=== PATIENT | female | born 1935 | race Caucasian/White ===

== ENCOUNTER → 2016-06-17 | Outpatient (CLI) | payer OTHER ==
[~2016-06-17] MED LIST: ACET-1256 PO; ACET650T82 PO; CALCTAB7 PO; CLB/200 PO; DILT180C96 PO; HYOS0.1271 PO; MISC4CAP PO; MULTTAB PO; POLYSOL4 OPB; ULT/50 PO; ZOLP10TA PO
--- NOTE | 2016-06-17 14:06 | DIAGNOSTIC IMAGING REPORT ---
CT HEAD WITHOUT CONTRAST (CT) CLINICAL HISTORY: Subdural hematoma COMPARISON STUDY: Head CT dated 03/24/2016, MRI the brain dated 06/02/2016 TECHNIQUE: Axial CT of the brain is performed from the vertex to the skull base. IV contrast was not administered for this examination. CT DOSE: 614.27 mGy.cm FINDINGS: There is a trace left convexity subdural hematoma, unchanged in size. There is no CT evidence of acute cortical infarction. There is no evidence of midline shift. There is no acute hemorrhage. No calvarial fractures are visualized. There are minimal white matter hypodensities likely on a small vessel basis. There is no evidence of pathologic ventricular dilatation. There is no evidence of acute sinusitis. There is minor mucosal thickening within the right maxillary sinus IMPRESSION: Trace left convexity subdural hematoma unchanged in size. No acute intracranial findings. Electronically signed by: Evens Lloyd M.D. 06/17/2016 2:04 PM Dictated Date/Time: 06/17/2016 2:01 PM
== END | disposition home or self-care (01) ==
LOC: C.CTS 13:47
PROVIDERS: ATTEND Psychiatry & Neurology Neurology
DX: I62.00 Nontraumatic subdural hemorrhage, unspecified (principal)

== ENCOUNTER → 2016-08-31 | Outpatient (CLI) | payer OTHER ==
[~2016-08-31] MED LIST changes: +GADAVIST IV PRN
--- NOTE | 2016-08-31 16:59 | DIAGNOSTIC IMAGING REPORT ---
MRI OF THE BRAIN WITHOUT AND WITH IV CONTRAST CLINICAL HISTORY: Subdural hematoma. Follow-up examination. COMPARISON STUDY: Head CT dated 06/17/2016, MRI the brain dated 06/02/2016 TECHNIQUE: MRI of the brain was performed from the vertex to the skull base utilizing various T1 and T2 weighted sequences. Following the IV administration of 7 mL of Gadavist contrast, additional enhanced images were obtained. FINDINGS: Sagittal T1, axial diffusion, proton density and T2 weighted axial, coronal FLAIR, and pre and post axial T1-weighted images were acquired. These were supplemented with post gadolinium coronal T1 weighted images. No intra or extra-axial mass lesions are visualized. There are tiny foci of restricted water diffusion within the right cerebellar hemisphere, consistent with areas of acute/subacute infarction. There is no evidence of ventricular dilatation. Proton density T2-weighted and FLAIR images reveal scattered foci of increased T2 signal within the white matter, likely on a small vessel basis. There are no abnormal flow voids. There is bilateral dural enhancement, likely secondary to the previously identified subdural hemorrhage. There are trace bilateral subdural hematomas similar to the prior study. There are inflammatory changes present within the right mastoid area IMPRESSION: 1. Tiny foci of restricted water diffusion within the right cerebellar hemisphere consistent with acute/subacute infarcts 2. Trace bilateral subdural hematomas left greater than right, unchanged from the preceding study. 3. Mild dural enhancement, likely the sequela of prior subdural hemorrhages 4. Persistent inflammatory changes within the right mastoid. Electronically signed by: Evens Lloyd M.D. 08/31/2016 4:58 PM Dictated Date/Time: 08/31/2016 4:51 PM
== END | disposition home or self-care (01) ==
LOC: C.MRI 14:58
PROVIDERS: ATTEND Psychiatry & Neurology Neurology
DX: I62.00 Nontraumatic subdural hemorrhage, unspecified (principal)

== ENCOUNTER → 2017-03-21 | Outpatient (CLI) | payer OTHER ==
--- NOTE | 2017-03-21 14:49 | DIAGNOSTIC IMAGING REPORT ---
BRAIN COMBO CLINICAL HISTORY: 81 years-old Female presenting with I62.00 Subdural hematoma march 2017, 6 month follow up, comp. TECHNIQUE: Multisequence, multiplanar MR imaging of the brain was performed before and after the administration of intravenous contrast. IV contrast: Gadavist. COMPARISON: 08/31/2016. FINDINGS: Ventricles and sulci normal in size. Periventricular and subcortical white matter T2/FLAIR hyperintensity, nonspecific but likely indicative of chronic small vessel ischemic change. 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 No mass effect or midline shift. No restricted diffusion to suggest acute ischemia. No residual subdural hematomas. T2 skull base flow voids preserved. Small focus of enhancement along the course of the anterior cerebral arteries (series 10 image 15), not corroborated on coronal imaging, possibly slow flow within a vessel. Dural enhancement unchanged. Bone marrow signal intensity within the calvarium within normal limits. Bilateral tlingit & ha[place] lenses are absent. Fluid noted in the right mastoid air cells. Trace right maxillary sinus mucosal thickening. IMPRESSION: 1. No acute intracranial abnormality. No residual subdural hematomas. Persistent dural enhancement likely relates to presence of prior hematomas. Electronically signed by: Ambrosio Wise M.D. 03/21/2017 2:29 PM Dictated Date/Time: 03/21/2017 2:21 PM
== END | disposition home or self-care (01) ==
LOC: C.MRIBC 12:57
PROVIDERS: ATTEND Physician Assistant
DX: Z09 Encounter for follow-up examination after completed treatment for conditions other than malignant neoplasm (principal); I62.00 Nontraumatic subdural hemorrhage, unspecified

== ENCOUNTER → 2017-05-23 | Outpatient (CLI) | payer OTHER ==
[~2017-05-23] MED LIST changes: -GADAVIST IV PRN; +OPTIRAY 320 IV PRN
--- NOTE | 2017-05-23 17:41 | DIAGNOSTIC IMAGING REPORT ---
CT SCAN OF THE ABDOMEN AND PELVIS WITH IV CONTRAST CLINICAL HISTORY: Left lower quadrant abdominal pain. COMPARISON STUDY: No priors. TECHNIQUE: Following the IV administration of 94 cc of Optiray 320, CT scan of the abdomen and pelvis is performed from the lung bases to the proximal femora. Images are reviewed in the axial, sagittal, and coronal planes. IV contrast was administered without complication. A dose lowering technique was utilized adhering to the principles of ALARA. The examination is degraded by motion artifact, as well as by streak artifact from the arms which could not be elevated above the abdomen. FINDINGS: Lung bases: The heart is normal in size and without pericardial effusion. There are scattered coronary artery calcifications. Linear scarring versus atelectasis is present at both lung bases. No airspace consolidation or pleural effusion is seen. There is an indeterminant 1.3 cm irregular nodular density at the left lung base seen on image #21. Liver: The contrast-enhanced liver is normal in size, contour, and attenuation. There is no intrahepatic biliary ductal dilatation. The hepatic veins and portal veins are patent. There are numerous hepatic cysts which measure up to 5 cm. Additional subcentimeter hepatic hypodensities also likely represent cysts but are too small for definitive characterization. Gallbladder: Surgically absent noting clips in the gallbladder fossa. Spleen: Normal in size and attenuation. Pancreas: Moderately atrophic and grossly unremarkable. Adrenal glands: Unremarkable. Kidneys: The contrast enhanced kidneys are atrophic and without hydronephrosis. The kidneys enhance symmetrically. There are numerous bilateral renal cysts. The largest arises from the upper pole the right kidney and measures up to 9.5 cm. Additional subcentimeter cortical hypodensities also likely represent cysts but are too small for definitive characterization. Abdominal vasculature: The abdominal aorta is normal in course and caliber noting mild atherosclerotic calcification. Bowel: A small duodenal diverticulum is incidentally noted. There is no bowel obstruction. There is moderate colonic diverticulosis without CT evidence of acute diverticulitis. This is greatest in the sigmoid region. The appendix is not identified and reported surgically absent. Peritoneum: There is no intraperitoneal free air or abdominal ascites. Lymphadenopathy: None. Pelvic viscera: Although decompressed, the bladder wall appears thickened. Mucosa appears hyperemic. The uterus is surgically absent. No adnexal lesion is seen. Skeletal structures: The skeletal structures are osteopenic. There is moderate to advanced lumbar sacral spondylosis as well as scoliosis. No lytic or blastic lesions are seen. IMPRESSION: 1. Although decompressed, the bladder wall appears thickened and mildly hyperemic. Correlate clinically and with urinalysis for evidence of cystitis. 2. Moderate sigmoid diverticulosis without CT evidence of acute diverticulitis. 3. Cardiomegaly. 4. There is an irregular 1.3 cm nodular density in the left lower lobe. This is within a region of linear atelectasis and may be related. Follow-up with a dedicated chest CT in 3 months time is recommended for reassessment. 5. Additional findings as above. Electronically signed by: Cristian Sotelo M.D. 05/23/2017 5:40 PM Dictated Date/Time: 05/23/2017 5:32 PM
== END | disposition home or self-care (01) ==
LOC: C.CTS 14:51
PROVIDERS: ATTEND Family Medicine
DX: K57.30 Diverticulosis of large intestine without perforation or abscess without bleeding (principal); I51.7 Cardiomegaly; R91.1 Solitary pulmonary nodule; J98.11 Atelectasis

== ENCOUNTER 2020-01-09 16:26 | Observation (INO) ==
--- OUTSIDE RECORDS SUMMARY | 2020-01-09 16:28 | External Medical Summary | Continuity of Care Document ---
:1935 Author Name Kellie Brady Address Unavailable Unavailable , Care Team Providers Name Role Phone Gerhard Quesada III, M.D. 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 Refills: 0 Tylenol 500 MG CAPS; TAKE CAPSULE PRN Refills: 0 Pepto-Bismol TABS Refills: 0 Imodium A-D TABS Refills: 0 Sodium Bicarbonate Oral Powder Refills: 0 Gas-X CAPS Refills: 0 Tylenol 8 Hour 650 MG Oral Tablet Extended Release; TAKE 2 T ABLET Bedtime PRN Refills: 0 Hyoscyamine Sulfate 0.125 MG Sublingual Tablet Sublingual; PLACE 1 TABLET UNDER THE TONGUE 4 TIMES DAILY NEEDED. Refills: 0 Multi-Vitamin TABS; TAKE 1 TABLET DAILY. Refills: 0 traMADol HCl - 50 MG Oral Tablet; TAKE 1 TABLET 4 times jessica y PRN Refills: 0 DilTIAZem CD 120 MG CP24; TAKE 1 CAPSULE ONCE DAILY. Refills: 0 Zolpidem Tartrate 5 MG Oral Tablet; TAKE 1 OR 2 TABLETS BY MOUTH AT BEDTIME NEEDED FOR INSOMNIA Jose Antonio Quesada III Start: 17-Aug-2011 Quantity: 60 Refills: 1 Procedures History of Appendectomy Status: Complete d History of Tonsillectomy Status: Complet ed History of Hysterectomy Status: Complete d History of Cholecystectomy Status: Compl eted Immunizations Immunizations not documented Family History Mother Family history of cerebrovascular accident (CVA) (V17.1) (Z8 2.3) Status: Active Father Family history of chronic obstructive pulmonary disease (V17 .6) Status: Active (Z82.5) Family history of cardiac disorder (V17.49) (Z82.49) Status: Active Social History - Smoking Status Ex-smoker Interventions Medication ChangesZolpidem Tartrate 5 MG Oral Tablet - Renew Plan of Treatment Planned Observations Planned Goals not documented Results No Known Results Results not documented
[2020-01-09 16:58] LABS: Basophils # (auto) 0.03 K/uL (0-0.2); Basophils % (auto) 0.6 %; Eosinophils # (auto) 0.14 K/uL (0-0.5); Eosinophils % (auto) 2.8 %; Hematocrit (blood only) 33.1 % (37-47); Hemoglobin 10.6 g/dL (12.0-16.0); Lymphocytes # (auto) 1.59 K/uL (1.2-3.4); Lymphocytes % (auto) 32.1 %; Mean Corpuscular Volume 93.8 fL (80-100); Mean Platelet Volume 10.8 fL (7.4-10.4); Monocytes # (auto) 0.42 K/uL (0.11-0.59); Monocytes % (auto) 8.5 %; Neutrophils # (auto) 2.78 K/uL (1.4-6.5); Platelet Count 263 K/uL (130-400); RDW Standard Deviation 47.7 fL (36.4-46.3); Red Blood Count 3.53 M/uL (4.2-5.4); White Blood Count 4.96 K/uL (4.8-10.8)
[2020-01-09] MEDS ORDERED: LORazepam 0.5 MG/1 ML VIAL IV STA (17:02)
[2020-01-09] MEDS ORDERED: ONDANSETRON INJ 2 MG/ML 2 ML VIAL IV STA (17:02)
[2020-01-09] MEDS ORDERED: SODIUM CHLORIDE 0.9% 1000ML 500 ML IV ONE (17:02)
[2020-01-09 17:10] LABS: Partial Thromboplastin Time 28.5 Seconds (21.0-31.0); Prothrombin Time 10.9 Seconds (9.0-12.0)
[2020-01-09 17:22] LABS: Alanine Aminotransferase 28 U/L (12-78); Albumin Level 2.9 gm/dl (3.4-5.0); Aspartate Aminotransferase 25 U/L (15-37); BUN Creatinine Ratio 14.4 (10-20); Blood Urea Nitrogen 12 mg/dl (7-18); Calcium 9.4 mg/dl (8.5-10.1); Carbon Dioxide 27 mmol/L (21-32); Chloride 109 mmol/L (98-107); Creatinine Clr Calc Pharmacy 59.2 ml/min; Est GFR (African American) 78.5; Est GFR (Non-African American) 67.7; Glucose 96 mg/dl (70-99); Lipase 105 U/L (73-393); Potassium 3.9 mmol/L (3.5-5.1); Sodium 140 mmol/L (136-145)
[2020-01-09 17:27] LABS: Albumin Globulin Ratio 0.7 (0.9-2); Alkaline Phosphatase 89 U/L (45-117); Bilirubin,Total 0.2 mg/dl (0.2-1); Globulin 4.3 gm/dl (2.5-4.0); Total Protein 7.2 gm/dl (6.4-8.2); Troponin I < 0.015 ng/ml (0-0.045)
--- NOTE | 2020-01-09 17:28 | Emergency Department Note ---
Impression & Plan Chest pain, Abdominal pain, Inability to swallow, HTN (hypertension) ED Provider Note NAME: GAIL BUCIO AGE: 84 SEX: F : 1935 ARRIVES VIA: Ambulance INFORMANT: Patient ED PROVIDER(S): Abdiel Orellana DO CHIEF COMPLAINT: Chest pain HPI: Patient is an 84-year-old female with past medical history of A. fib, IBS, fibromyalgia status post cholecystectomy, hysterectomy and appendectomy that presents the ER for chest pain. Patient notes that her symptoms started around lunchtime. She was eating she felt very gaseous in her stomach. She has been burping. She notes that she felt as though she could not swallow and get food down. She took some baking soda but there is been no significant improvement. Around 345 she felt as though there was a sack of potatoes on her chest and described as a pressure. She believes that that has been improving as she has been burping. She still feels as though she cannot get anything down. She has right mid abdominal pain. Still passing gas. Last bowel movement within the past 24 hours. Denies any dysuria urgency or frequency. No history of diabetes, hypertension or CAD. No other exacerbating or remitting factors. Denies any vomiting. ROS: See above HPI for pertinent positives & negatives. A total of 10 systems reviewed and were otherwise negative. PAST MEDICAL HISTORY:See Below PAST SURGICAL HISTORY:See Below FAMILY HISTORY:See Below SOCIAL HISTORY:See Below HOME MEDICATIONS:See Below ALLERGIES:See Below VITALS:See Below PHYSICAL EXAMINATION: GENERAL: Sitting up in bed, alert, disheveled, persistent belching EYE EXAM: normal conjunctiva. OROPHARYNX: no exudate, no erythema, lips, buccal mucosa, and tongue normal and mucous membranes are moist NECK: supple, no nuchal rigidity, no adenopathy, non-tender CHEST: Reproducible anterior chest wall pain. Different than stated complaint. LUNGS: Clear to auscultation. Normal chest wall mechanics HEART: no murmurs, S1 normal and S2 normal ABDOMEN: abdomen soft, tender in right mid abdomen, normo-active bowel sounds, no masses, no rebound or guarding. BACK: Back is symmetrical on inspection and there is no deformity, no midline tenderness, no CVA tenderness. SKIN: no rashes and no bruising UPPER EXTREMITIES: upper extremities are grossly normal. LOWER EXTREMITIES: No pitting edema. NEURO EXAM: Normal sensorium, cranial nerves II-XII grossly intact, normal speech, no gross weakness of arms, no gross weakness of legs. MEDICAL DECISION MAKING: Patient is an 84-year-old female sitting up in bed with constant belching and dry heaving. She is complaining of chest pain and epigastric pain. IV was e stablished blood was obtained and shows no significant leukocytosis. Mild anemia 10.6 thousand. INR unremarkable. BMP on LFTs bilirubin was unremarkable. Troponin was negative. Lipase unremarkable. She claims that she is unable to swallow things although things are going down but she does have persistent belching. CT of the chest and abdomen and pelvis shows no acute pathology with exception of a pleural effusion with right parenchymal/infiltrative/nodular changes on the CT. Question if this is aspiration. EKG did show some nonspecific ST wave changes and compared to EMSs EKG. Do not believe that this is ACS but rather GI in nature. She was given some Ativan. Did not give aspirin as the persistent dry heaving/belching. Patient symptoms did improve with Ativan. Patient was also given IV fluids and Zofran. Still unable to truly keep or swallow anything different. Patient was updated bedside discussed the hospitalist for further evaluation. Benefit from GI evaluation. Of note she did decline chest x-ray initially and we just waited to perform the CT of the chest and abdomen. Triage Nursing notes reviewed. Prior medical records reviewed Vital Signs: reviewed and remarkable for hypertension Differential diagnosis: Differential diagnoses includes but is not limited to acute coronary syndrome, myocardial infarction, pericarditis, pulmonary embolus, aortic dissection, pneumonia, pneumothorax, musculoskeletal, shingles, esophageal. ER treatment provided: See below Diagnostics interpreted by me: ECG: Afib rate of 65 Normal axis No PVCs Nonspecific ST wave changes in inferior leads Normal QTC EKG #2 from EMS A. fib rate is [address] depressions in the inferior leads ST depressions in the lateral leads Normal QTC No PVCs Cardiac Monitoring: An order was placed for continuous cardiac monitoring. The monitor shows a rate of 65 with sinus rhythm. Laboratory studies: As stated above and show below. Imaging studies: CT of the chest and pelvis showed no obstructive findings. Please see report for additional findings. Consultation(s): Discussed with Pearl miller for further evaluation. ED COURSE: Procedures: none Critical Care: None Past Med/Surg History Medical History Atrial fibrillation (Chronic) Chronic osteoarthritis Fibromyalgia (Chronic) IBS (irritable bowel syndrome) (Chronic) SDH (subdural hematoma) Surgical History S/P appendectomy (Inactive) S/P cholecystectomy (Inactive) S/P hysterectomy (Inactive) S/P tonsillectomy (Inactive) Family History (Updated 01/09/20 @ 20:44 by GOMEZ Mendez) Mother Stroke Sister Stroke Social History Smoking Status: Former smoker Tobacco Type: Cigarettes Hx Alcohol Use: No Feels Safe at Home: Yes Allergies Allergies Allergy/AdvReac Type Severity Reaction Status Date / Time No Known Allergies Allergy Verified 01/09/20 17:31 Home Meds Home Medications Medication Instructions Recorded Confirmed Probiotic Liquid 1 dose PO DAILY 01/09/20 01/09/20 diltiazem HCl 120 mg PO DAILY 01/09/20 01/09/20 doxycycline hyclate 100 mg PO BID 01/09/20 01/09/20 hyoscyamine sulfate 0.125 mg PO QID PRN 01/09/20 01/09/20 zy-skc-uktro-calcium carb-K1 1 tab PO DAILY 01/09/20 01/09/20 [Women's 50 Plus Multivitamin] tramadol 50 mg PO BID PRN 01/09/20 01/09/20 vitamins A,C,C-vufl-dichry 1 tab PO DAILY 01/09/20 01/09/20 [PreserVision AREDS] zolpidem 5 mg PO HS PRN 01/09/20 01/09/20 Results & Data (ED) Vital Signs Vital Signs - 24 hr 01/09/20 16:31 01/09/20 16:39 01/09/20 16:43 Temperature 36.5 C Temperature Source Oral Pulse Rate 70 67 66 Pulse Rate [Right] Pulse Rate from SpO2 Sensor 69 70 Pulse Rhythm Regular Pulse Rhythm [Right] Pulse Strength [Right] Respiratory Rate 15 21 15 Respiratory Effort / Characteristics Respiratory Depth Normal Blood Pressure 199/84 H 199/84 H Blood Pressure [Right Arm] Blood Pressure Mean 93 122 Blood Pressure Mean [Right Arm] Pulse Oximetry 96 96 96 Oxygen Delivery Method Room Air Sepsis Recent Fever Within 48 Hours No Sepsis New/Unexplained Change in Mental Status No Sepsis Action Taken by Nursing No Action Required 01/09/20 16:45 01/09/20 17:00 01/09/20 17:15 Temperature Temperature Source Pulse Rate 65 63 Pulse Rate [Right] Pulse Rate from SpO2 Sensor 67 65 60 Pulse Rhythm Pulse Rhythm [Right] Pulse Strength [Right] Respiratory Rate 19 18 Respiratory Effort / Characteristics Respiratory Depth Blood Pressure Blood Pressure [Right Arm] Blood Pressure Mean Blood Pressure Mean [Right Arm] Pulse Oximetry 96 97 95 Oxygen Delivery Method Sepsis Recent Fever Within 48 Hours Sepsis New/Unexplained Change in Mental Status Sepsis Action Taken by Nursing 01/09/20 18:10 01/09/20 18:11 01/09/20 19:34 Temperature Temperature Source Pulse Rate 102 H 61 Pulse Rate [Right] 110 H Pulse Rate from SpO2 Sensor 64 Pulse Rhythm Pulse Rhythm [Right] Regular Pulse Strength [Right] Normal Respiratory Rate 22 16 Respiratory Effort / Characteristics Non-Labored Spontaneous Respiratory Depth Normal Blood Pressure 175/87 H 175/87 H Blood Pressure [Right Arm] Blood Pressure Mean 116 123 Blood Pressure Mean [Right Arm] Pulse Oximetry 96 96 Oxygen Delivery Method Room Air Sepsis Recent Fever Within 48 Hours Sepsis New/Unexplained Change in Mental Status Sepsis Action Taken by Nursing 01/09/20 20:53 Temperature Temperature Source Pulse Rate Pulse Rate [Right] 66 Pulse Rate from SpO2 Sensor Pulse Rhythm Pulse Rhythm [Right] Irregular Pulse Strength [Right] Normal Respiratory Rate 16 Respiratory Effort / Characteristics Non-Labored Spontaneous Respiratory Depth Normal Blood Pressure Blood Pressure [Right Arm] 182/72 H Blood Pressure Mean Blood Pressure Mean [Right Arm] 108 Pulse Oximetry 97 Oxygen Delivery Method Room Air Sepsis Recent Fever Within 48 Hours Sepsis New/Unexplained Change in Mental Status Sepsis Action Taken by Nursing Laboratory Data Result diagrams: 01/09/20 16:46 01/09/20 16:46 Lab Results 01/09/20 01/09/20 01/09/20 Range/Units 16:46 16:46 16:46 WBC 4.96 (4.8-10.8) K/uL RBC 3.53 L (4.2-5.4) M/uL Hgb 10.6 L (12.0-16.0) g/dL Hct 33.1 L (37-47) % MCV 93.8 (80-100) fL MCH 30.0 (25-34) pg MCHC 32.0 (32-36) g/dL RDW Std Deviation 47.7 H (36.4-46.3) fL RDW Coeff of Bear 14.0 (11.5-14.5) % Plt Count 263 (130-400) K/uL MPV 10.8 H (7.4-10.4) fL Immature Gran % (Auto) 0.0 % Neut % (Auto) 56.0 % Lymph % (Auto) 32.1 % Perkins % (Auto) 8.5 % Eos % (Auto) 2.8 % Baso % (Auto) 0.6 % Neut # (Auto) 2.78 (1.4-6.5) K/uL Lymph # (Auto) 1.59 (1.2-3.4) K/uL Perkins # (Auto) 0.42 (0.11-0.59) K/uL Eos # (Auto) 0.14 (0-0.5) K/uL Baso # (Auto) 0.03 (0-0.2) K/uL Immature Gran # (Auto) 0.00 (0.00-0.02) K/uL PT 10.9 (9.0-12.0) Seconds INR 1.0 (0.9-1.1) APTT 28.5 (21.0-31.0) Seconds PTT Ratio 1.0 Sodium 140 (136-145) mmol/L Potassium 3.9 (3.5-5.1) mmol/L Chloride 109 H (98-107) mmol/L Carbon Dioxide 27 (21-32) mmol/L Anion Gap 4.0 (3-11) BUN 12 (7-18) mg/dl Creatinine 0.80 (0.6-1.2) mg/dl Est Cr Clr Drug Dosing 59.2 ml/min Est GFR ( Amer) 78.5 Est GFR (Non-Af Amer) 67.7 BUN/Creatinine Ratio 14.4 (10-20) Glucose 96 (70-99) mg/dl Calcium 9.4 (8.5-10.1) mg/dl Total Bilirubin 0.2 (0.2-1) mg/dl AST 25 (15-37) U/L ALT 28 (12-78) U/L Alkaline Phosphatase 89 (45-117) U/L Troponin I < 0.015 (0-0.045) ng/ml Total Protein 7.2 (6.4-8.2) gm/dl Albumin 2.9 L (3.4-5.0) gm/dl Globulin 4.3 H (2.5-4.0) gm/dl Albumin/Globulin Ratio 0.7 L (0.9-2) Lipase 105 (73-393) U/L Administered Medications Discontinued Medications Sodium Chloride (Nss 1000ml) 500 mls @ 999 mls/hr IV .Q31M ONE Stop: 01/09/20 17:32 Last Infusion: 01/09/20 18:06 Dose: 0 mls/hr Documented by: [id number] Admin: 01/09/20 17:14 Dose: 999 mls/hr Documented by: [id number] Lorazepam (Ativan) 0.5 mg in 1 mls @ 1 mls/min IV NOW STA Stop: 01/09/20 17:03 Last Admin: 01/09/20 17:14 Dose: 1 mls/min Documented by: [id number] Ioversol (Optiray 320 100ml) 94 ml IV ONCE ONE Stop: 01/09/20 17:36 Last Admin: 01/09/20 17:35 Dose: 94 ml Documented by: [id number] Ondansetron HCl (Zofran) 4 mg IV NOW STA Stop: 01/09/20 17:03 Last Admin: 01/09/20 17:14 Dose: 4 mg Documented by: [id number] Discharge Plan Visit Data Chief Complaint: Cardiac Assessment Stated Complaint: Chest pressure ED Provider: Abdiel Orellana Discharge Problem: Chest pain, Abdominal pain, Inability to swallow, HTN (hypertension) Discharge Instructions Interventions: ED Discharge Assessment Last Done: 01/09/20 21:14 Forms Stand Alone Forms: [facility] [employer] Prescriptions Prescriptions: No Action doxycycline hyclate 100 mg capsule 100 mg PO BID RF: 0 tramadol 50 mg tablet 50 mg PO BID PRN (Reason: Pain) RF: 0 diltiazem HCl 120 mg capsule,extended release 24hr 120 mg PO DAILY RF: 0 zolpidem 5 mg tablet 5 mg PO HS PRN (Reason: Sleep) RF: 0 PreserVision AREDS [id number] Tablet 1 tab PO DAILY RF: 0 Women's 50 Plus Multivitamin 400 mcg-500 mg calcium-20 mcg Tablet 1 tab PO DAILY RF: 0 Probiotic Liquid 1 dose PO DAILY RF: 0 hyoscyamine sulfate 0.125 mg Tablet 0.125 mg PO QID PRN (Reason: Abdominal Pain) RF: 0 Referrals Referrals: Rosy Jessica MD [Primary Care Provider] - Discharge Problem: Chest pain Qualifiers: Chest pain type: unspecified Qualified Code(s): R07.9 - Chest pain, unspecified Abdominal pain Qualifiers: Abdominal location: unspecified location Qualified Code(s): R10.9 - Unspecified abdominal pain HTN (hypertension) Qualifiers: Hypertension type: unspecified Qualified Code(s): I10 - Essential (primary) hypertension
[2020-01-09] MEDS ORDERED: IOVERSOL 100ml IV ONE (17:35)
--- NOTE | 2020-01-09 18:36 | CT Scan Report ---
CT chest w con CT DOSE: HISTORY: Dysphagia cant swallow and chest pain TECHNIQUE: Multiaxial CT images of the chest were performed following the intravenous administration of contrast. A dose lowering technique was utilized adhering to the principles of ALARA. COMPARISON: None. FINDINGS: No significant mediastinal or hilar adenopathy. Small hiatal hernia. The upper lungs are considered clear. 5 mm groundglass nodule right upper lung image 71. Additional g roundglass nodular density peripheral aspect right midlung image 101. Small right pleural effusion. N odular densities left lung base measuring 12 and 15 mm respectively. Minimal dependent atelectasis rakesh th lung bases. Small loculated right effusion. Multiple hepatic hypodensities which potentially relat e to cysts. IMPRESSION: 1. Scattered round parenchymal infiltrative/nodular type changes. 2. The should be closely monitored to exclude a progressive process. 3. Small right pleural effusion with a small loculated effusion right base. 4. Several large hypodense hepatic nodules which may represent cysts. ACT 112: Negative or not required by law. The above report was generated using voice recognition software. It may contain grammatical, syntax or spelling errors. Electronically signed by: Jamie Melgoza M.D. 01/09/2020 6:35 PM
--- NOTE | 2020-01-09 18:45 | CT Scan Report ---
CT abd pelvis IV con only CT DOSE: 2075.58 mGy.cm HISTORY: Dysphagia cant swallow and chest pain TECHNIQUE: Multiaxial CT images of the abdomen and pelvis were performed following the use of intrave nous contrast. A dose lowering technique was utilized adhering to the principles of ALARA. COMPARISON STUDY: 05/23/2017 FINDINGS: Bibasilar atelectatic change combined with left basilar nodularity. These findings are slig htly progressive from the prior exam. Small loculated pleural effusion left base. Several hepatic cysts increase in number as well as size compared to the prior exam. Kidneys demonstr ate multiple small cysts. There is no evidence for renal hydronephrosis. Prior cholecystectomy. Findings of mild chronic sigmoid diverticulosis. No evidence for acute diverti culitis. IMPRESSION: 1. Findings of mildly progressive hepatic as well as renal cyst. 2. Left basilar nodularity with loculated pleural fluid right lung base. 3. Nonobstructive bowel pattern. 4. Chronic sigmoid diverticulosis. ACT 112: Negative or not required by law. The above report was generated using voice recognition software. It may contain grammatical, syntax or spelling errors. Electronically signed by: Jamie Melgoza M.D. 01/09/2020 6:43 PM
[2020-01-09] MEDS ORDERED: ALUMINUM/MAGNESIUM SUSP 18 ML, LIDOCAINE HCL VISCOUS 2% 6 ML, BARCODE IDENTIFIER 1 EA PO ONE (20:16)
--- NOTE | 2020-01-09 20:46 | History & Physical Report ---
Date of Service January 09, 2020 Assessment & Plan (1) Dysphagia: (2) Chest pain: -Admit to [facility] with telemetry -Patient presenting from home with reports of persistent belching, chest pressure, difficulty swallowing -Suspect patient has esophagitis from doxycycline recently started for left wrist cellulitis/bug bite -Initial troponin negative, EKG without acute ST changes; will continue to cycle cardiac enzymes, if significant elevation, will pursue further cardiac work-up -No signs of food bolus; CT chest, ABD/pelvis negative for acute findings -GI cocktail x1 dose, start PPI twice daily and Carafate 4 times daily -Clear liquid diet -GI consult (3) Atrial fibrillation: -Rate controlled on diltiazem, will continue -Not on chronic anticoagulation secondary to remote history of SDH (4) Pulmonary nodule: -Scattered nodules noted on CT chest today -Will need outpatient follow-up (5) DVT prophylaxis: SQ Lovenox History of Present Illness Chief Complaint: Difficulty swallowing, chest pain, persistent belching Primary Care Provider: Rosy Jessica MD 84-year-old female with PMH chronic atrial fibrillation, IBS, osteoarthritis, subdural hematoma, and other moms listed below who presents the ED for evaluation of difficulty swallowing, chest pain, persistent belching. Patient reports that after breakfast today, she developed chest pressure with associated belching. She also says she had a difficult time swallowing. She reports her symptoms progressively got worse and she had difficulty catching her breath due to the persistent belching. EMS was called and patient was brought to the ED for further evaluation. Patient was recently placed on doxycycline for cellulitis/bug bite over the left wrist. This has completely resolved. Patient denies nausea, vomiting, abdominal pain, diarrhea. No other recent illnesses, fevers, chills. She denies lightheadedness, dizziness, diaphoresis, syncopal events. No urinary symptoms. In the ED, initial troponin is negative and EKG does not show any acute ST changes. CT chest, ABD/pelvis is negative for acute findings. Patient was hypertensive on arrival at 199/84, this is improving. Patient was given IV Ativan, IV Zofran, IVF. Allergies Allergy/AdvReac Type Severity Reaction Status Date / Time No Known Allergies Allergy Verified 01/09/20 17:31 Home Medications Home Medications Medication Instructions Recorded Confirmed Type Probiotic Liquid 1 dose PO DAILY 01/09/20 01/09/20 History diltiazem HCl 120 mg PO DAILY 01/09/20 01/09/20 History doxycycline hyclate 100 mg PO BID 01/09/20 01/09/20 History hyoscyamine sulfate 0.125 mg PO QID PRN 01/09/20 01/09/20 History xt-onm-vxnfb-calcium carb-K1 1 tab PO DAILY 01/09/20 01/09/20 History [Women's 50 Plus Multivitamin] tramadol 50 mg PO BID PRN 01/09/20 01/09/20 History vitamins A,C,X-ljjx-tiiqim 1 tab PO DAILY 01/09/20 01/09/20 History [PreserVision AREDS] zolpidem 5 mg PO HS PRN 01/09/20 01/09/20 History Past Med/Surg History Medical History Atrial fibrillation (Chronic) Chronic osteoarthritis Fibromyalgia (Chronic) IBS (irritable bowel syndrome) (Chronic) SDH (subdural hematoma) Surgical History S/P appendectomy (Inactive) S/P cholecystectomy (Inactive) S/P hysterectomy (Inactive) S/P tonsillectomy (Inactive) Family History (Updated 01/09/20 @ 20:44 by GOMEZ Mendez) Mother Stroke Sister Stroke Social History Smoking Status: Former smoker Tobacco Type: Cigarettes Hx Alcohol Use: No Feels Safe at Home: Yes Review of Systems Review of Systems: ROS per HPI, all other systems reviewed and negative Physical Exam Constitutional: WD/WN, vitals as above Eyes: PERRL, conjunctivae normal, anicteric sclerae ENMT: external ear and nose normal, oropharynx normal Respiratory: normal respiratory effort, lungs clear to auscultation Cardiovascular: Rate/Rhythm: regular rate and regular rhythm Heart Sounds: + murmur (Grade 3/6, systolic) Vessels: normal peripheral pulses Extremities: no edema Gastrointestinal (Abdomen): normal bowel sounds, soft, nontender, no hepatosplenomegaly Musculoskeletal: no cyanosis or clubbing, extremities motor strength 5/5 Skin: no rashes, warm and dry Neurologic: PERRL, EOMI, accommodation nl, no face palsy, no dysarthria Psychiatric: A+Ox3, euthymic affect Results & Data Results & Data ([facility]) Vital Signs (Past 12 Hours) Vital Signs Temp Pulse Pulse Resp BP Pulse Ox 01/09/20 19:34 110 H 16 96 01/09/20 18:11 61 22 175/87 H 96 01/09/20 18:10 102 H 175/87 H 01/09/20 17:15 63 18 95 01/09/20 17:00 97 01/09/20 16:45 65 19 96 01/09/20 16:43 66 15 96 01/09/20 16:39 36.5 C 67 21 199/84 H 96 01/09/20 16:31 70 15 199/84 H 96 Laboratory Results Short CBC 01/09/20 Range/Units 16:46 WBC 4.96 (4.8-10.8) K/uL Hgb 10.6 L (12.0-16.0) g/dL Hct 33.1 L (37-47) % Plt Count 263 (130-400) K/uL BMP 01/09/20 16:46 Sodium 140 Potassium 3.9 Chloride 109 H Carbon Dioxide 27 BUN 12 Creatinine 0.80 Glucose 96 Calcium 9.4 Cardiac Enzymes 01/09/20 Range/Units 16:46 Troponin I < 0.015 (0-0.045) ng/ml Liver Function 01/09/20 Range/Units 16:46 Total Bilirubin 0.2 (0.2-1) mg/dl AST 25 (15-37) U/L ALT 28 (12-78) U/L Alkaline Phosphatase 89 (45-117) U/L Albumin 2.9 L (3.4-5.0) gm/dl Diagnostic Findings CT ABD/PELVIS IMPRESSION: 1. Findings of mildly progressive hepatic as well as renal cyst. 2. Left basilar nodularity with loculated pleural fluid right lung base. 3. Nonobstructive bowel pattern. 4. Chronic sigmoid diverticulosis. CT CHEST IMPRESSION: 1. Scattered round parenchymal infiltrative/nodular type changes. 2. The should be closely monitored to exclude a progressive process. 3. Small right pleural effusion with a small loculated effusion right base. 4. Several large hypodense hepatic nodules which may represent cysts. Code Status & VTE Plan Code Status Patient is a full code as per my discussion with her. VTE Prophylaxis Plan VTE Prophylaxis will be ordered: Yes Supervising Physician Co-Signing Physician Notes Pt seen and examined by me, care coordinated with Pearl Mason NP, please see her note above for further detail. Pt is an 84-year-old female with hx of chronic atrial fibrillation, IBS, osteoarthritis, hx of subdural hematoma, who presents for evaluation of difficulty swallowing, chest pain, and persistent belching. Pt developed chest pressure with associated belching after breakfast today, now reports difficult time swallowing. She reports her symptoms progressively got worse and she had difficulty catching her breath due to the persistent belching. EMS was called and patient was brought to the ED for further evaluation. Patient has been on doxycycline for cellulitis/bug bite over the left wrist. This has resolved. Patient denies nausea, vomiting, abdominal pain, diarrhea, fevers, chills, lightheadedness, dizziness, diaphoresis, syncopal events. In the ED, initial troponin negative and EKG w/ nonspecific ST changes. CT chest, ABD/pelvis obtained significant for pulmonary nodules, which will need follow-up, as well as small loculated pleural fluid at right base, large hepatic cysts mildly increased from prior imaging. Pt was also found quite hypertensive in the ED. Currently she is sitting up in bed, in no acute distress. She is alert and oriented and answering questions appropriately. Her son-in-law is at the bedside. Lung sounds are clear to auscultation bilaterally, without any wheezing or rhonchi or crackles noted. Heart sounds regular, systolic murmur noted. Abdomen is soft, nondistended, mildly tender to palpation diffusely, patient states this is chronic. She moves extremities spontaneously and without difficulty. Admit for observation on telemetry, follow-up troponin, start PPI, Carafate/GI cocktail for dysphasia and possible esophagitis, GI consult. Will need follow- up for abnormal images as above. Ulises Flores MD
[2020-01-09] MEDS: GI COCKTAIL ED USE PO ONE ×2 (21:46→22:01)
[2020-01-09] MEDS: SUCRALFATE 1 GM/10 ML UDC PO SCH (21:52)
[2020-01-09] MEDS: PANTOprazole 40 MG TAB PO SCH (21:53)
[2020-01-09] MEDS ORDERED: TRAMADOL HCL 50 MG TABLET PO PRN (23:52)
[2020-01-10] MEDS: ACETAMINOPHEN 325 MG TAB PO PRN ×2 (00:16→15:19)
[2020-01-10] MEDS ORDERED: ZOLPIDEM TARTRATE 5 MG TAB PO PRN (00:24)
[2020-01-10 06:44] LABS: Hematocrit (blood only) 31.1 % (37-47); Mean Corpuscular Hemoglobin 29.9 pg (25-34); Mean Corpuscular Hgb Conc 32.2 g/dL (32-36); Mean Corpuscular Volume 92.8 fL (80-100); Mean Platelet Volume 10.9 fL (7.4-10.4); Platelet Count 250 K/uL (130-400); RDW Standard Deviation 47.4 fL (36.4-46.3); Red Blood Count 3.35 M/uL (4.2-5.4); White Blood Count 5.98 K/uL (4.8-10.8)
[2020-01-10 07:13] LABS: Blood Urea Nitrogen 9 mg/dl (7-18); Calcium 8.6 mg/dl (8.5-10.1); Carbon Dioxide 28 mmol/L (21-32); Chloride 112 mmol/L (98-107); Creatinine Clr Calc Pharmacy 63.1 ml/min; Est GFR (African American) 84.8; Est GFR (Non-African American) 73.2; Glucose 81 mg/dl (70-99); Potassium 4.2 mmol/L (3.5-5.1); Sodium 144 mmol/L (136-145)
[2020-01-10 07:19] LABS: Troponin I < 0.015 ng/ml (0-0.045)
[2020-01-10] MEDS ORDERED: ENOXAPARIN INJ 40 MG/0.4 ML SYR SQ SCH (08:00)
[2020-01-10] MEDS: SUCRALFATE 1 GM/10 ML UDC PO SCH ×2 (08:13→13:53)
[2020-01-10] MEDS: PANTOprazole 40 MG TAB PO SCH (08:13)
--- NOTE | 2020-01-10 08:41 | Gastrointestinal Consultation ---
Date of Consultation January 10, 2020 Assessment & Plan (1) Dysphagia: Her discomfort most likely represents doxycycline pill dysphasia. Would expect this to heal with holding the doxycycline. Would discharge on Protonix 40 mg once daily x2 months then stop . Would also continue sucralfate 1 g p.o. 4 times daily x2 weeks. If symptoms persist more than a few weeks, patient should make an appointment in the outpatient GI setting. Present on Admission?: Yes Supervising Physician Co-Signing Physician Notes I have personally seen and examined the patient with GOMEZ Najera on 01/10/20. Her note reflects my exam and findings. I agree with her impression and plan. Presentation and symptoms most c/w pill esophagitis from likely culprit; doxy. Charles Peterson M.D. History of Present Illness Reason for Consultation: dysphagia, ? esophagitis Requesting Physician: Dr. Gleason Attending Physician: Christiano Gleason MD History of Present Illness Ms. Florence Starks is an 84 yr old female pt of [facility] who carries a hx of HTN,fibromyalgia, A-fib presented to the ED yesterday for belching, chest pressure and difficulty swallowing. She has been taking a course of doxycycline for wrist cellulitis (bug bite), which was since arrival. On arrival, CT of the chest and abdomen with IV contrast did not explain the dysphagia/pain. She is hemodynamically stable, with mild normocytic anemia. She is awake alert oriented, able to walk around in her room, Hb is stable. Her discomfort is improved. She has remained NPO. Allergies Allergy/AdvReac Type Severity Reaction Status Date / Time No Known Allergies Allergy Verified 01/09/20 17:31 Home Medications Home Medications Medication Instructions Recorded Confirmed Type PreserVision AREDS 1 tab PO DAILY 01/09/20 01/09/20 History Probiotic Liquid 1 dose PO DAILY 01/09/20 01/09/20 History Women's 50 Plus Multivitamin 1 tab PO DAILY 01/09/20 01/09/20 History diltiazem HCl 120 mg PO DAILY 01/09/20 01/09/20 History hyoscyamine sulfate 0.125 mg PO QID PRN 01/09/20 01/09/20 History tramadol 50 mg PO BID PRN 01/09/20 01/10/20 History zolpidem 5 mg PO HS PRN 01/09/20 01/09/20 History pantoprazole 40 mg PO DAILY 60 Days #60 tab 01/10/20 Rx sucralfate [Carafate] 1 gm PO ACHS 14 Days #56 tab 01/10/20 Rx Patient History Medical History Atrial fibrillation (Chronic) Chronic osteoarthritis Fibromyalgia (Chronic) IBS (irritable bowel syndrome) (Chronic) SDH (subdural hematoma) Surgical History S/P appendectomy (Inactive) S/P cholecystectomy (Inactive) S/P hysterectomy (Inactive) S/P tonsillectomy (Inactive) Family History (Updated 01/09/20 @ 20:44 by GOMEZ Mendez) Mother Stroke Sister Stroke Social History Smoking Status: Unknown if ever smoked Tobacco Type: Cigarettes Hx Alcohol Use: No Hx Substance Use: No Preferred Language: Maltese Communication Ability: Effective Beliefs That Will Affect Care: Bahai Bahai Beliefs: Buddhism, last rites Current Living Situation: Family Current Living Situation Comment: Lives w/granddaughter and great grandchildren Other Information That Helps Us Care for You: No Feels Safe at Home: Yes Safety Concerns: Feels Safe At This Time Review of Systems Review of Systems: ROS: Gen: Denies weakness, fevers, weight loss Eyes: No eye redness, or pain, no recent vision changes Resp: No SOB, no cough Cardio: No palpitations/irregular beats, no chest pain GI: As per HPI, otherwise negative : Denies pain on urination Skin: No jaundice, itching or new rashes Physical Exam Constitutional: WD/WN, vitals as above Eyes: PERRL, conjunctivae normal, anicteric sclerae ENMT: external ear and nose normal, oropharynx normal Neck: trachea midline, no thyromegaly Respiratory: normal respiratory effort, lungs clear to auscultation Cardiovascular: RRR, no murmur, no edema Gastrointestinal (Abdomen): normal bowel sounds, soft, nontender, no hepatosplenomegaly Skin: no rashes, warm and dry Neurologic: PERRL, EOMI, accommodation nl, no face palsy, no dysarthria Psychiatric: A+Ox3, euthymic affect Lymphatic: no cervical or axillary lymphadenopathy Results & Data ([facility]) Vital Signs (Past 12 Hours) Vital Signs Temp Pulse Pulse Resp BP Pulse Ox 01/10/20 07:33 37.1 C 83 16 130/69 90 01/10/20 04:00 36.6 C 85 20 136/73 93 01/09/20 23:45 37.1 C 66 63 20 153/72 H 93 01/09/20 22:25 69 16 180/87 H 95 01/09/20 20:53 66 16 182/[address] chest 01/08: 1. Scattered round parenchymal infiltrative/nodular type changes. 2. The should be closely monitored to exclude a progressive process. 3. Small right pleural effusion with a small loculated effusion right base. 4. Several large hypodense hepatic nodules which may represent cysts. CT abd/pelvis with IV, no oral contrast 01/08: 1. Findings of mildly progressive hepatic as well as renal cyst. 2. Left basilar nodularity with loculated pleural fluid right lung base. 3. Nonobstructive bowel pattern. 4. Chronic sigmoid diverticulosis.
[2020-01-10] MEDS ORDERED: dilTIAZem HCL 120 MG CAPCR PO SCH (09:00)
[2020-01-10] MEDS ORDERED: TRAMADOL HCL 50 MG TABLET PO PRN (09:23)
[2020-01-10] MEDS ORDERED: LACTOBACILLUS ACIDOPHILUS 1 GM PACK PO SCH (10:00)
--- NOTE | 2020-01-10 15:33 | Hospitalist Progress Note ---
Date of Service January 10, 2020 Assessment & Plan (1) Dysphagia: (2) Chest pain: Dysphagia Likely Pill induced (Doxycycline) Esophagitis --CT ABD:Findings of mildly progressive hepatic as well as renal cyst. Left basilar nodularity with loculated pleural fluid right lung base. Nonobstructive bowel pattern. Chest discomfort likely due to above Currently denies chest pain Cardiac Enzymes X3: Negative EKG showed no signs of acute ischemia Doxycycline discontinued Professor Of Communication And Writing to increased oral fluid intake when taking pills Started on Protonix 40 mg daily--to be continued for 2 months and stop Started on Carafate 1 g before meals at bedtime--for 2 weeks and stop Tolerated low fiber diet Advised to follow-up with GI as outpatient if symptoms persist for possible EGD Hepatic/Renal Cysts Incidental finding on CT scan Advised to follow up as outpatient for further work up (3) Atrial fibrillation: Rate controlled Continue Diltiazem Not on chronic anticoagulation secondary H/O SDH (4) Pulmonary nodule: Scattered nodules noted on CT chest Follow up as outpatient Denies any cough, fever (5) DVT prophylaxis: SQ Lovenox Admission and Anticipated Discharge Date Admission Date: January 09, 2020 Subjective Patient is seen and examined at bedside Reports having belching, chronic generalized pain from fibromyalgia Denies nausea, vomiting Discussed with gastroenterology today Tolerating diet Offers no other complaints Review of Systems Review of Systems: All systems reviewed & are unremarkable except as noted in HPI & below Physical Exam Physical Exam: Physical Exam: Vitals signs as noted above General Appearance:Moderately built and nourished, no apparent distress Head: normocephalic, Atraumatic Eyes: normal inspection, EOMI Neck: supple, Trachea midline Respiratory/Chest: Normal breath sounds, CTA, No accessory muscle use Cardiovascular: Irregularly Irregular, + systolic murmur Abdomen/GI:Soft, Mild generalized tender( chronic per patient due to fibromyalgia), No guarding/rigidity, Bowel sounds present Extremities/Musculoskelatal:normal inspection, no edema Neurologic/Psych:AAOX3, grossly no focal neurological deficits Skin: normal color, warm Results & Data Results & Data ([facility]) Vital Signs (Past 12 Hours) Vital Signs Temp Pulse Resp BP Pulse Ox 01/10/20 11:35 37.1 C 74 16 143/69 H 93 01/10/20 07:33 37.1 C 83 16 130/69 90 01/10/20 04:00 36.6 C 85 20 136/73 93 Laboratory Results Short CBC 01/09/20 01/10/20 Range/Units 16:46 06:03 WBC 4.96 5.98 (4.8-10.8) K/uL Hgb 10.6 L 10.0 L (12.0-16.0) g/dL Hct 33.1 L 31.1 L (37-47) % Plt Count 263 250 (130-400) K/uL BMP 01/09/20 01/10/20 16:46 06:03 Sodium 140 144 Potassium 3.9 4.2 Chloride 109 H 112 H Carbon Dioxide 27 28 BUN 12 9 Creatinine 0.80 0.75 Glucose 96 81 Calcium 9.4 8.6 Cardiac Enzymes 01/09/20 01/10/20 01/10/20 Range/Units 16:46 00:15 06:03 Troponin I < 0.015 < 0.015 < 0.015 (0-0.045) ng/ml Liver Function 01/09/20 Range/Units 16:46 Total Bilirubin 0.2 (0.2-1) mg/dl AST 25 (15-37) U/L ALT 28 (12-78) U/L Alkaline Phosphatase 89 (45-117) U/L Albumin 2.9 L (3.4-5.0) gm/dl (1) Chest pain Chest pain type: unspecified Qualified Code(s): R07.9 - Chest pain, unspecified
--- NOTE | 2020-01-10 15:45 | Discharge Summary ---
Date of Service January 10, 2020 Admission HPI Per Admitting Provider 84-year-old female with PMH chronic atrial fibrillation, IBS, osteoarthritis, subdural hematoma, and other moms listed below who presents the ED for evaluation of difficulty swallowing, chest pain, persistent belching. Patient reports that after breakfast today, she developed chest pressure with associated belching. She also says she had a difficult time swallowing. She reports her symptoms progressively got worse and she had difficulty catching her breath due to the persistent belching. EMS was called and patient was brought to the ED for further evaluation. Patient was recently placed on doxycycline for ce llulitis/bug bite over the left wrist. This has completely resolved. Patient denies nausea, vomiting, abdominal pain, diarrhea. No other recent illnesses, fevers, chills. She denies lightheadedness, dizziness, diaphoresis, syncopal events. No urinary symptoms. In the ED, initial troponin is negative and EKG does not show any acute ST changes. CT chest, ABD/pelvis is negative for acute findings. Patient was hypertensive on arrival at 199/84, this is improving. Patient was given IV Ativan, IV Zofran, IVF. Admission Exam Per Admitting Provider Physical Exam Constitutional: WD/WN, vitals as above Eyes: PERRL, conjunctivae normal, anicteric sclerae ENMT: external ear and nose normal, oropharynx normal Respiratory: normal respiratory effort, lungs clear to auscultation Cardiovascular: Rate/Rhythm: regular rate and regular rhythm Heart Sounds: + murmur (Grade 3/6, systolic) Vessels: normal peripheral pulses Extremities: no edema Gastrointestinal (Abdomen): normal bowel sounds, soft, nontender, no hepatosplenomegaly Musculoskeletal: no cyanosis or clubbing, extremities motor strength 5/5 Skin: no rashes, warm and dry Neurologic: PERRL, EOMI, accommodation nl, no face palsy, no dysarthria Psychiatric: A+Ox3, euthymic affect Principal Diagnosis Dysphagia Hepatic Cysts Renal Cysts Discharge Data Allergies Allergy/AdvReac Type Severity Reaction Status Date / Time No Known Allergies Allergy Verified 01/09/20 17:31 Consultations 01/09/20 19:14 ED Decision to Admit Stat 01/09/20 23:52 Consult Gastroenterology Routine Procedures Performed --CT ABD:Findings of mildly progressive hepatic as well as renal cyst. Left basilar nodularity with loculated pleural fluid right lung base. Nonobstructive bowel pattern. Ordered Studies 01/09/20 17:02 CT abd pelvis IV con only Stat CT chest w con Stat Hospital Course (1) Dysphagia: (2) Chest pain: -Admit to [facility] with telemetry -Patient presenting from home with reports of persistent belching, chest pressure, difficulty swallowing -Suspect patient has esophagitis from doxycycline recently started for left wrist cellulitis/bug bite -Initial troponin negative, EKG without acute ST changes; will continue to cycle cardiac enzymes, if significant elevation, will pursue further cardiac work-up -No signs of food bolus; CT chest, ABD/pelvis negative for acute findings -GI cocktail x1 dose, start PPI twice daily and Carafate 4 times daily -Clear liquid diet -GI consult (3) Atrial fibrillation: -Rate controlled on diltiazem, will continue -Not on chronic anticoagulation secondary to remote history of SDH (4) Pulmonary nodule: -Scattered nodules noted on CT chest today -Will need outpatient follow-up (5) DVT prophylaxis: SQ Lovenox Total Time Total Time Spent Total Time Spent (In Minutes): 38 minutes Discharge Plan Discharge Items Patient Disposition: Home - Self-Care Reason For Visit: DYSPHAGIA Discharge Diagnosis: Dysphagia Hepatic Cysts Renal Cysts Activity: Resume your previous activity Exercise/Sports: Gradually increase as tolerated Non-emergency contact: Primary Care Provider and Transfer And Pumphouse Operator Call non-emergency contact if: you have any medication questions, your symptoms worsen, your pain is not controlled, your pain is worsening, your pain is unusual for you, your pain is concerning for you and you have a fever Follow-up/Referrals: Rosy Jessica MD [Primary Care Provider] - Diet: Heart Healthy and Low Fiber Addtl Attending Provider Instructions: Follow-up with your primary care physician Dr. 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 Your Incidentally noted to have cysts on your Liver and Kidneys on CT scan. Follow up with your physician for further work-up as outpatient. Medication Changes: 1, Discontinue taking doxycycline as it could have contributed to your dysphagia 2, Start taking Protonix 40 mg daily for 2 months and stop 3, Start taking sucralfate(Carafate) 1 g 4 times a day for 2 weeks and stop Seek immediate medical attention if your symptoms reoccur or worsen Pending Studies at Discharge: No Stand-Alone Forms: My [facility], Smoking Cessation Medications and DC Order Prescriptions: New pantoprazole 40 mg Tablet,Delayed Release (Dr/Ec) 40 mg PO DAILY 60 Days Qty: 60 RF: 0 sucralfate [Carafate] 1 gram tablet 1 gm PO ACHS 14 Days Qty: 56 RF: 0 Continued tramadol 50 mg tablet 50 mg PO BID PRN (Reason: Pain) RF: 0 diltiazem HCl 120 mg capsule,extended release 24hr 120 mg PO DAILY RF: 0 zolpidem 5 mg tablet 5 mg PO HS PRN (Reason: Sleep) RF: 0 PreserVision AREDS [id number],160-113-100 [id number] Tablet 1 tab PO DAILY RF: 0 Women's 50 Plus Multivitamin 400 mcg-500 mg calcium-20 mcg Tablet 1 tab PO DAILY RF: 0 Probiotic Liquid 1 dose PO DAILY RF: 0 hyoscyamine sulfate 0.125 mg Tablet 0.125 mg PO QID PRN (Reason: Abdominal Pain) RF: 0 Discontinued doxycycline hyclate 100 mg capsule 100 mg PO BID RF: 0 Discharge Orders: Discharge Order (Routine); Ordered 01/10/20 Ordered By: Christiano Gleason Admission Data Admit Date/Time: 01/09/20 19:48 Attending Provider: Christiano Gleason Admit Provider: Danis Flores Primary Care Provider: Rosy Jessica Other Providers: Ministerio Carrasco ; Charles Peterson Other Interventions: Discharge Summary Assessment (RN) Last Done: 01/10/20 16:07 DC Date/Time DO NOT enter until pt leaves facility: 01/10/20 16:51
--- NOTE | 2020-01-11 06:44 | Electrocardiogram Report ---
Test Reason : Blood Pressure : / mmHG Vent. Rate : 065 BPM Atrial Rate : 075 BPM P-R Int : 000 ms QRS Dur : 088 ms QT Int : 440 ms P-R-T Axes : 000 -12 000 degrees QTc Int : 457 ms Atrial fibrillation Abnormal ECG When compared with ECG of 24-MAR-2016 17:03, Questionable change in QRS axis Confirmed by Hemant Mena ([id number]) on 01/11/2020 6:43:49 AM Referred By: REFERRED SELF Confirmed By:Hemant Mena
== END 2020-01-10 16:51 | disposition home or self-care (01) ==
LOC: 2N 16:26 → ED 16:26 → SUATTDRO 19:48 → 2N 21:14

== ENCOUNTER 2020-01-21 08:29 | Observation (INO) ==
[2020-01-21] MEDS ORDERED: HYOSCYAMINE SULFATE 0.125 MG TAB SL STA (08:50)
--- NOTE | 2020-01-21 08:58 | Emergency Department Note ---
History of Present Illness General Chief complaint: Diarrhea Stated complaint: BLACK STOOL, DIARRHEA Time Seen by Provider: 01/21/20 08:41 Source: patient Limitations: no limitations History of Present Illness Provider complaint: Diarrhea Onset (ago): day(s) Location: abdomen Severity: moderate Pain Consistency: + intermittent Maximum Pain Intensity: 0 Quality: + other (Cramping abdominal pain) Relieved By: + none Associated symptoms: + fever/chills (Temperature of 101 last month. No fever since.); no chest pain, no cough, no nausea/vomiting and no shortness of breath This is an 84-year-old female presents with diarrhea for the past 5 days. She describes it as mostly watery with bits of stool. She took Pepto-Bismol last night and developed melanotic stools today and became concerned. She is not on blood thinners. She does complain of diffuse crampy abdominal pain. Her diarrhea occurs anywhere from 4-8 times a day. She has no associated nausea or vomiting, chest pain, shortness of breath, cough or cold symptoms or known exposure to COVID-19. The patient states that she was on doxycycline in December for unknown reason. She denies prior history of C. difficile infection. No alleviating factors. Home Medications Home Medications Medication Instructions Recorded Confirmed Type PreserVision AREDS 1 tab PO DAILY 01/09/20 01/21/20 History Probiotic Liquid 1 dose PO DAILY 01/09/20 01/21/20 History Women's 50 Plus Multivitamin 1 tab PO DAILY 01/09/20 01/21/20 History diltiazem HCl 120 mg PO DAILY 01/09/20 01/21/20 History hyoscyamine sulfate 0.125 mg PO QID PRN 01/09/20 01/21/20 History tramadol 50 mg PO BID PRN 01/09/20 01/21/20 History zolpidem 5 mg PO HS PRN 01/09/20 01/21/20 History pantoprazole 40 mg PO DAILY 60 Days #60 tab 01/10/20 01/21/20 Rx sucralfate [Carafate] 1 gm PO ACHS 14 Days #56 tab 01/10/20 01/21/20 Rx Allergies Allergy/AdvReac Type Severity Reaction Status Date / Time No Known Allergies Allergy Verified 01/09/20 17:31 Past Med/Surg History Medical History Atrial fibrillation (Chronic) Chronic osteoarthritis Fibromyalgia (Chronic) IBS (irritable bowel syndrome) (Chronic) SDH (subdural hematoma) Surgical History S/P appendectomy (Inactive) S/P cholecystectomy (Inactive) S/P hysterectomy (Inactive) S/P tonsillectomy (Inactive) Family History Mother Stroke Sister Stroke Social History (Updated 01/21/20 @ 13:15 by Pearl Perez PA-C) Smoking Status: Former smoker Tobacco Type: Cigarettes Age Started Using Tobacco: 14; Age Quit Using Tobacco: 59; Cigarettes Per Day: 3 packs per week; Hx Alcohol Use: Yes Alcohol Intake Frequency Comment: 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 and A total of 10 systems reviewed and were otherwise negative Physical Exam Vital Signs Vital Signs - 24 hr 01/21/20 08:36 01/21/20 10:48 01/21/20 13:33 Temperature 36.8 C Temperature Source Oral Pulse Rate 72 Pulse Rate [Right Finger] 77 60 Respiratory Rate 16 18 18 Respiratory Effort / Characteristics Non-Labored Respiratory Depth Normal Normal Blood Pressure 136/95 Blood Pressure [Right Arm] 152/71 H Blood Pressure Mean 108 Blood Pressure Mean [Right Arm] 98 Pulse Oximetry 97 94 98 Oxygen Delivery Method Room Air Room Air Room Air Sepsis Recent Fever Within 48 Hours No Sepsis New/Unexplained Change in Mental Status No Sepsis Action Taken by Nursing No Action Required Constitutional: Vital signs reviewed. Eyes: Pupils are equal round reactive to light. Conjunctiva are noninjected. ENT: Pharynx is clear without erythema or exudate. Mucous membranes are dry. Neck supple without meningeal signs. Respiratory: Clear to auscultation bilaterally. Breath sounds are equal bilaterally. Cardiovascular: Regular rate and rhythm. No rubs or gallops. GI: Soft, nondistended with diffuse mild tenderness. No guarding. Bowel sounds are present. Musculoskeletal: No peripheral edema. No lower extremity tenderness. Integumentary: No cyanosis. or jaundice. Neurological: The patient is awake and alert. No focal deficits. Psychiatric: Normal affect. Not anxious appearing. Course Administered Medications Discontinued Medications Hyoscyamine (Levsin) 0.125 mg SL NOW STA Stop: 01/21/20 08:51 Last Admin: 01/21/20 09:12 Dose: 0.125 mg Documented by: [id number] Sodium Chloride (Nss) 500 mls @ 999 mls/hr IV .Q31M PATTI Stop: 01/21/20 09:30 Last Infusion: 01/21/20 10:04 Dose: 0 mls/hr Documented by: [id number] Admin: 01/21/20 09:13 Dose: 999 mls/hr Documented by: [id number] Potassium Chloride (Klor-Con M20) 20 meq PO NOW STA Stop: 01/21/20 13:12 Last Admin: 01/21/20 13:32 Dose: 20 meq Documented by: [id number] Tramadol HCl (Ultram) 50 mg PO NOW STA Stop: 01/21/20 11:22 Last Admin: 01/21/20 11:34 Dose: 50 mg Documented by: [id number] Medical Decision Making Differential Diagnosis C. difficile infection, colitis, diverticulitis, IBS, dehydration, foodborne i llness Medical Records Attestation: I reviewed the patient's medical records. Patient was admitted to the hospital last month for dysphasia. She had a CT of the chest and abdomen which were unremarkable. She does have a history of atrial fibrillation but is not on anticoagulants because of prior history of subdural hematoma. Home Medications Current Medication List: was personally reviewed by me Laboratory Data Attestation: I reviewed the patient's lab results. Result diagrams: 01/21/20 09:10 01/21/20 09:10 Lab Results 01/21/20 01/21/20 01/21/20 Range/Units 09:10 09:10 09:10 WBC 5.82 (4.8-10.8) K/uL RBC 3.53 L (4.2-5.4) M/uL Hgb 10.8 L (12.0-16.0) g/dL Hct 32.7 L (37-47) % MCV 92.6 (80-100) fL MCH 30.6 (25-34) pg MCHC 33.0 (32-36) g/dL RDW Std Deviation 47.7 H (36.4-46.3) fL RDW Coeff of Bear 14.1 (11.5-14.5) % Plt Count 218 (130-400) K/uL MPV 11.5 H (7.4-10.4) fL Immature Gran % (Auto) 0.0 % Neut % (Auto) 66.2 % Lymph % (Auto) 19.4 % Tompkins % (Auto) 12.0 % Eos % (Auto) 2.1 % Baso % (Auto) 0.3 % Reticulocyte % (Auto) 0.9 Cancelled (0.5-2.0) % Neut # (Auto) 3.85 (1.4-6.5) K/uL Lymph # (Auto) 1.13 L (1.2-3.4) K/uL Tompkins # (Auto) 0.70 H (0.11-0.59) K/uL Eos # (Auto) 0.12 (0-0.5) K/uL Baso # (Auto) 0.02 (0-0.2) K/uL Reticulocyte # 0.03 Cancelled (0.02-0.10) 10^6/uL Immature Gran # (Auto) 0.00 (0.00-0.02) K/uL Sodium 139 (136-145) mmol/L Potassium 3.3 L (3.5-5.1) mmol/L Chloride 109 H (98-107) mmol/L Carbon Dioxide 25 (21-32) mmol/L Anion Gap 5.0 (3-11) BUN 10 (7-18) mg/dl Creatinine 0.92 (0.6-1.2) mg/dl Est Cr Clr Drug Dosing Not Reportable Est GFR ( Amer) 66.3 Est GFR (Non-Af Amer) 57.2 BUN/Creatinine Ratio 10.4 (10-20) Glucose 104 H (70-99) mg/dl Calcium 9.3 (8.5-10.1) mg/dl Magnesium (1.8-2.4) mg/dl Total Bilirubin 0.4 (0.2-1) mg/dl AST 20 (15-37) U/L ALT 16 (12-78) U/L Alkaline Phosphatase 65 (45-117) U/L Lactate Dehydrogenase (84-246) U/L Total Protein 6.9 (6.4-8.2) gm/dl Albumin 2.8 L (3.4-5.0) gm/dl Globulin 4.1 H (2.5-4.0) gm/dl Albumin/Globulin Ratio 0.7 L (0.9-2) Lipase 88 (73-393) U/L TSH (0.300-4.500) uIu/ml 01/21/20 01/21/20 Range/Units 09:10 13:43 WBC (4.8-10.8) K/uL RBC (4.2-5.4) M/uL Hgb (12.0-16.0) g/dL Hct (37-47) % MCV (80-100) fL MCH (25-34) pg MCHC (32-36) g/dL RDW Std Deviation (36.4-46.3) fL RDW Coeff of Bear (11.5-14.5) % Plt Count (130-400) K/uL MPV (7.4-10.4) fL Immature Gran % (Auto) % Neut % (Auto) % Lymph % (Auto) % Tompkins % (Auto) % Eos % (Auto) % Baso % (Auto) % Reticulocyte % (Auto) (0.5-2.0) % Neut # (Auto) (1.4-6.5) K/uL Lymph # (Auto) (1.2-3.4) K/uL Tompkins # (Auto) (0.11-0.59) K/uL Eos # (Auto) (0-0.5) K/uL Baso # (Auto) (0-0.2) K/uL Reticulocyte # (0.02-0.10) 10^6/uL Immature Gran # (Auto) (0.00-0.02) K/uL Sodium (136-145) mmol/L Potassium (3.5-5.1) mmol/L Chloride (98-107) mmol/L Carbon Dioxide (21-32) mmol/L Anion Gap (3-11) BUN (7-18) mg/dl Creatinine (0.6-1.2) mg/dl Est Cr Clr Drug Dosing Est GFR ( Amer) Est GFR (Non-Af Amer) BUN/Creatinine Ratio (10-20) Glucose (70-99) mg/dl Calcium (8.5-10.1) mg/dl Magnesium 2.1 (1.8-2.4) mg/dl Total Bilirubin (0.2-1) mg/dl AST (15-37) U/L ALT (12-78) U/L Alkaline Phosphatase (45-117) U/L Lactate Dehydrogenase 119 (84-246) U/L Total Protein (6.4-8.2) gm/dl Albumin (3.4-5.0) gm/dl Globulin (2.5-4.0) gm/dl Albumin/Globulin Ratio (0.9-2) Lipase (73-393) U/L TSH 2.590 (0.300-4.500) uIu/ml Imaging Data Radiologist's Impression: CT OF THE ABDOMEN AND PELVIS WITHOUT CONTRAST CLINICAL HISTORY: Abdominal pain and diarrhea. Evaluate for colitis/diverticulitis. COMPARISON STUDY: CT of the abdomen and pelvis January 09, 2020 and May 23, 2017. TECHNIQUE: Axial images of the abdomen and pelvis were obtained without IV contrast. Images were reviewed in the axial, sagittal, and coronal planes. Automated exposure control was utilized for the study. A dose lowering technique was utilized adhering to the principles of ALARA. FINDINGS: Imaged portions of the lower chest demonstrate a mixed solid and cystic left lower lobe lesion measures 2.7 x 2 x 1.5 cm. This is similar to chest CT of January 09, 2020 and moderately increased in size since abdominal CT of May 23, 2017. No pneumatosis, free air or portal venous gas is present. Water attenuation hepatic lesions are suboptimally assessed on this unenhanced exam but were present on CT of May 23, 2017. These reflect cysts. Unenhanced images of the spleen, adrenal glands and pancreas are unremarkable. Water attenuation right retroperitoneal lesion measures 7.8 cm is unchanged. This is benign given stability. A few water attenuation renal lesions favor cysts. There is no evidence for a bowel obstruction. Colonic diverticulosis is noted. There is moderate wall thickening and mild pericolonic infiltration involving the distal rectum, sigmoid colon and distal descending colon. No suspicious osseous lesions are noted. Is no lymphadenopathy. No biliary ductal dilatation is noted status post cholecystectomy. IMPRESSION: 1. Moderate wall thickening and mild pericolonic infiltration involving the distal descending colon, sigmoid colon and rectum. This favors a nonspecific colitis. Diverticulitis is within the differential but is considered less likely given the long segment distribution. No free air or abscess. 2. 2.7 x 2 x 1.5 cm mixed solid and cystic left lower lobe pulmonary nodule. This is highly suggestive of bronchogenic carcinoma. Pulmonary consultation is recommended. 3. Numerous hepatic cysts. ACT 112: Positive. There are findings on this exam that require communication between the performing entity and the patient following Patient Test Result Information Act ([place] Act 112) guidelines. Electronically signed by: Bharathi Garcia M.D. 01/21/2020 9:48 AM Blood Pressure Blood Pressure Findings: Elevated blood pressure Blood Pressure Disposition: Referred to patients primary care provider MDM Narrative I did evaluate the patient as noted above. Patient is presenting with diarrhea for 5 days and abdominal pain. She is tender diffusely. She does state that she had black stools today but took Pepto-Bismol yesterday. I did offer did do a rectal examination but I felt it was kinder to wait for a stool sample as we need 1 to check her for C. difficile as she has been on antibiotics last month. I did order C. difficile antigen test as well as a stool culture. IV access was established. The patient was placed in contact isolation. She was given normal saline IV. She was given Levsin sublingually. I did order and review the patient's blood work as noted in the electronic medical record. Her hemoglobin is 10.8 which is increased from her last visit. Her white count is not elevated. She has mild hypokalemia. I did order a CT of the abdomen and pelvis. I did review the images myself as well as the radiology report as described above. She has a diffuse nonspecific colitis from the descending colon to the rectum. I did reassess the patient. She is still having pain but does not want anything too strong for pain. She does state that she has taken tramadol in the past so she is agreeable to tramadol. I did treat her with 50 mg p.o. She is still unable to give a stool sample. I was concerned about C. difficile so we did give her more to drink to see if that would help her d efecate. She is still in significant pain and so will be hospitalized for IV fluids and bowel rest as well as C. difficile testing. I did discuss the case with the hospitalist and case reviewer. Impression & Plan Colitis, Acute hypokalemia, Dehydration Discharge Plan Visit Data Chief Complaint: Diarrhea Stated Complaint: BLACK STOOL, DIARRHEA ED Provider: Terry Arana Discharge Problem: Colitis, Acute hypokalemia, Dehydration Forms Stand Alone Forms: My [facility] Prescriptions Prescriptions: No Action tramadol 50 mg tablet 50 mg PO BID PRN (Reason: Pain) RF: 0 diltiazem HCl 120 mg capsule,extended release 24hr 120 mg PO DAILY RF: 0 zolpidem 5 mg tablet 5 mg PO HS PRN (Reason: Sleep) RF: 0 PreserVision AREDS [id number] Tablet 1 tab PO DAILY RF: 0 Women's 50 Plus Multivitamin 400 mcg-500 mg calcium-20 mcg Tablet 1 tab PO DAILY RF: 0 Probiotic Liquid 1 dose PO DAILY RF: 0 hyoscyamine sulfate 0.125 mg Tablet 0.125 mg PO QID PRN (Reason: Abdominal Pain) RF: 0 pantoprazole 40 mg Tablet,Delayed Release (Dr/Ec) 40 mg PO DAILY 60 Days Qty: 60 RF: 0 sucralfate [Carafate] 1 gram tablet 1 gm PO ACHS 14 Days Qty: 56 RF: 0
[2020-01-21] MEDS ORDERED: SODIUM CHLORIDE 0.9% 500 ML IV SCH (09:00)
[2020-01-21 09:22] LABS: Basophils # (auto) 0.02 K/uL (0-0.2); Basophils % (auto) 0.3 %; Eosinophils # (auto) 0.12 K/uL (0-0.5); Eosinophils % (auto) 2.1 %; Hematocrit (blood only) 32.7 % (37-47); Hemoglobin 10.8 g/dL (12.0-16.0); Lymphocytes # (auto) 1.13 K/uL (1.2-3.4); Lymphocytes % (auto) 19.4 %; Mean Corpuscular Hemoglobin 30.6 pg (25-34); Mean Corpuscular Volume 92.6 fL (80-100); Mean Platelet Volume 11.5 fL (7.4-10.4); Neutrophils # (auto) 3.85 K/uL (1.4-6.5); Neutrophils % (auto) 66.2 %; Platelet Count 218 K/uL (130-400); RDW Coefficient of Variation 14.1 % (11.5-14.5); RDW Standard Deviation 47.7 fL (36.4-46.3); Red Blood Count 3.53 M/uL (4.2-5.4); White Blood Count 5.82 K/uL (4.8-10.8)
[2020-01-21 09:38] LABS: Alanine Aminotransferase 16 U/L (12-78); Albumin Level 2.8 gm/dl (3.4-5.0); Aspartate Aminotransferase 20 U/L (15-37); BUN Creatinine Ratio 10.4 (10-20); Blood Urea Nitrogen 10 mg/dl (7-18); Calcium 9.3 mg/dl (8.5-10.1); Carbon Dioxide 25 mmol/L (21-32); Chloride 109 mmol/L (98-107); Est GFR (African American) 66.3; Est GFR (Non-African American) 57.2; Glucose 104 mg/dl (70-99); Lipase 88 U/L (73-393); Potassium 3.3 mmol/L (3.5-5.1); Sodium 139 mmol/L (136-145)
[2020-01-21 09:41] LABS: Albumin Globulin Ratio 0.7 (0.9-2); Alkaline Phosphatase 65 U/L (45-117); Bilirubin,Total 0.4 mg/dl (0.2-1); Globulin 4.1 gm/dl (2.5-4.0); Total Protein 6.9 gm/dl (6.4-8.2)
--- NOTE | 2020-01-21 09:50 | CT Scan Report ---
CT OF THE ABDOMEN AND PELVIS WITHOUT CONTRAST CLINICAL HISTORY: Abdominal pain and diarrhea. Evaluate for colitis/diverticulitis. COMPARISON STUDY: CT of the abdomen and pelvis January 09, 2020 and May 23, 2017. TECHNIQUE: Axial images of the abdomen and pelvis were obtained without IV contrast. Images were revi ewed in the axial, sagittal, and coronal planes. Automated exposure control was utilized for the breezy dy. A dose lowering technique was utilized adhering to the principles of ALARA. FINDINGS: Imaged portions of the lower chest demonstrate a mixed solid and cystic left lower lobe les ion measures 2.7 x 2 x 1.5 cm. This is similar to chest CT of January 09, 2020 and moderately increased in size since abdominal CT of May 23, 2017. No pneumatosis, free air or portal venous gas is pre sent. Water attenuation hepatic lesions are suboptimally assessed on this unenhanced exam but were pr esent on CT of May 23, 2017. These reflect cysts. Unenhanced images of the spleen, adrenal gland s and pancreas are unremarkable. Water attenuation right retroperitoneal lesion measures 7.8 cm is un changed. This is benign given stability. A few water attenuation renal lesions favor cysts. There is no evidence for a bowel obstruction. Colonic diverticulosis is noted. There is moderate wall thickeni ng and mild pericolonic infiltration involving the distal rectum, sigmoid colon and distal descending colon. No suspicious osseous lesions are noted. Is no lymphadenopathy. No biliary ductal dilatation is noted status post cholecystectomy. IMPRESSION: 1. Moderate wall thickening and mild pericolonic infiltration involving the distal descending colon, sigmoid colon and rectum. This favors a nonspecific colitis. Diverticulitis is within the differentia l but is considered less likely given the long segment distribution. No free air or abscess. 2. 2.7 x 2 x 1.5 cm mixed solid and cystic left lower lobe pulmonary nodule. This is highly suggestiv e of bronchogenic carcinoma. Pulmonary consultation is recommended. 3. Numerous hepatic cysts. ACT 112: Positive. There are findings on this exam that require communication between the performing entity and the patient following Patient Test Result Information Act ([place] Act 112) guidelines. Electronically signed by: Bharathi Garcia M.D. 01/21/2020 9:48 AM
[2020-01-21] MEDS ORDERED: TRAMADOL HCL 50 MG TABLET PO STA (11:21)
--- NOTE | 2020-01-21 12:44 | History & Physical Report ---
Date of Service January 21, 2020 Assessment & Plan (1) Colitis: * Obs medical --> CTAP favoring a non-specific colitis of distal descending colon, sigmoid colon and rectum. Diverticulitis in differential but less likely given long segment distribution. ?cdiff vs * Supportive care -- NSS + 20meq KCl * Tramadol, morphine prn pain. Avoiding NSAIDs in setting of possible colitis/bleeding. Zofran prn nausea * GI consulted -- appreciate assistance * Cdiff ordered * Fecal occult blood ordered * Stool studies * Added magnesium, replace electrolytes as needed * Clear liquid diet for now --> NPO after midnight for possible scope pending GI evaluation * Labs in AM (2) Atrial fibrillation: * Chronic. * EKG pending * Not on anticoagulation secondary to hx SDH -- has been rate controlled. Per patient, she does not see cardiology anymore because she has not had any issues * Continue home diltiazem 120mg daily (3) Esophagitis: * Recently thought to have esophagitis induced by doxycycline use -> continuing carafate and protonix 40mg daily * Added MOM for dyspepsia * ?H.pylori given increased dyspepsia/belching. Studies ordered (4) HTN (hypertension): * Per patient, diltiazem not actually for BP * Continue home diltiazem 120mg daily * BP currently 152/71 -- elevated likely secondary to pain (5) IBS (irritable bowel syndrome): * Chronic. Takes hyoscyamine as needed. Continue (6) Pulmonary nodule: * Seen on imaging, concerning for bronchogenic carcinoma. distant smoking history. * Patient aware. Spoke with on-call pulmonary team --> rec'd outpatient imaging for follow-up. Not for bronch biopsy at this time -- will need set up f/u at discharge (7) Fibromyalgia: * Continue home medications (8) Anemia: * H/h 10.8/32.7 -- appear patient with low values back to 2013. Although MCV 92.6, will add iron studies to see if anemia of chronic disease vs other * Follow AM labs (9) DVT prophylaxis: * SCDs * Chemophroph held in setting of possible bleed History of Present Illness Primary Care Provider: Eden Proctor MD 84 year old female with PMHx significant for atrial fibrillation (not on anticoagulation d/t SDH, rate controlled), IBS, fibromyalgia presented to the emergency department with worsening abdominal pain, increased diarrhea, and now with melena. Patient was previously discharged on January 09 for dysphagia/chest pain and thought to have an esophagitis secondary to doxycycline use. This morning --> two bowel movements that were black in coloration. She states she believes this was due to pepto-bismol that she took the night before. She states has never had this kind of diarrhea except when she has been on an tibiotic in the past but even then never like this. Rates it a 4/10 and diffuse, but states she deals with chronic pain due to her arthritis and fibromyalgia. Pain not worsening with eating, better when laying completely stil. She states she has been eating tuna fish with mayonnaise, egg whites, while rice, bran and crackers. She states she had been using the Levsin for pain relief but this did not help. She states she had minimal if no relief with the tramadol that she takes regularly outpatient for pain. Discussed morphine, although she says this "knocks her out" but is willing to have it on standby if needed for pain. Denies nausea or vomiting, but she does endorse increased belching and explosive diarrhea. No night sweats or unexplained weight loss, although she does endorse 2lb weight loss with the diarrhea. Denies chest pain, shortness of breath, (dysphagia improved since discontinuing the Doxycycline). Prior to last admission: She states on December 24 had a bite of some kind, thinking it was a spider bite on her distal left forearm. Bite never went away and it got hot in the evenings and warm, wit swelling. Bite initially the size of a quarter, red, warm, raised. On January 05, it blistered, "taking up space of two overlapping quarters" over her distal left forearm and over the wrist. She notes she had a slight temperature, with highest recording 101.1F. She notes this is not normal for her as she typically runs 97.7F plus or minus a degree. Most temperatures she had taken at home had been a degree or so above her normal. 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 She states she initially had a telemedicine on January 02 and although she assured her PCP she had not seen any ticks as she has much experience with them in the past, her PCP had concerns for lyme disease and wanted the patient to start treatment with the doxycycline. Patient states she began treatment with the doxycycline despite the facts that she did not believe she had been bit by a tick. She states she had seen a tick a couple days ago but that it was not attached and she got him before he bit her. She notes her dog does have them from time to time. On January 08 admitted to hospital because se had chest pressure, trouble breathing/speaking and swallowing and had increased gas. On January 09 discharged with doxycycline sopped, although her PCP wanted her to continue it. She was sent with sucralfate and Protonix/. January 10- she experienced constipation, "4 almond size pieces of stool" "worked my way up to a lemon. On January 14 evening, she had a normal BM, brown. States she thinks she saw some "fog"/ Denies hematochezia and She has a history of irritable bowel and states she as had alternating constipation and diarrhea. January 15, profuse diarrhea for 2.5 hours in the bathroom. Since the 11-19, consistent diarrhea. January 16 -- 3 BMs January 17 -- 8 BMs but notes she ate spicy vegetables - BMs - 5 BMs In the beginning foul odor, but the odor has subsided over night. Containing mucous and yellow discoloration. She she had a colonoscopy at age 75, which was normal. No history of Crohn or ulcerative colitis. Social: quit Feb 03, 1995. Started at age 14 and quit at age 59, smoked approximately 3 packs/weeks. Alcohol abuse in the past but never treated. states drank heavy for approximately 7 yeas. No abuse after . No current alcohol intake. ER Course: NSS 500cc x 1. Levsin SL x 1, Tramadol 50mg x1. CBC with WBC 5.8k, h/h 10.8/32.7, Plt 218, CMP with Na 139, K low at 3.3, Bun 10, Cr 0.92, Glucose 104. LFTs wnl. Lipase 88. CTAP with moderate wall thickening and mild pericolonic infiltration involving distal descending colon, sigmoid colon and rectum favoring a nonspecific colitis. Allergies Allergy/AdvReac Type Severity Reaction Status Date / Time No Known Allergies Allergy Verified 01/09/20 17:31 Home Medications Home Medications Medication Instructions Recorded Confirmed Type PreserVision AREDS 1 tab PO DAILY 01/09/20 01/21/20 History Probiotic Liquid 1 dose PO DAILY 01/09/20 01/21/20 History Women's 50 Plus Multivitamin 1 tab PO DAILY 01/09/20 01/21/20 History diltiazem HCl 120 mg PO DAILY 01/09/20 01/21/20 History hyoscyamine sulfate 0.125 mg PO QID PRN 01/09/20 01/21/20 History tramadol 50 mg PO BID PRN 01/09/20 01/21/20 History zolpidem 5 mg PO HS PRN 01/09/20 01/21/20 History pantoprazole 40 mg PO DAILY 60 Days #60 tab 01/10/20 01/21/20 Rx sucralfate [Carafate] 1 gm PO ACHS 14 Days #56 tab 01/10/20 01/21/20 Rx Past Med/Surg History Medical History Atrial fibrillation (Chronic) Chronic osteoarthritis Fibromyalgia (Chronic) IBS (irritable bowel syndrome) (Chronic) SDH (subdural hematoma) Surgical History S/P appendectomy (Inactive) S/P cholecystectomy (Inactive) S/P hysterectomy (Inactive) S/P tonsillectomy (Inactive) Family History Mother Stroke Sister Stroke Social History Smoking Status: Former smoker Tobacco Type: Cigarettes Age Started Using Tobacco: 14; Age Quit Using Tobacco: 59; Cigarettes Per Day: 3 packs per week; Hx Alcohol Use: Yes Alcohol Intake Frequency Comment: 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 No recent etoh use Hx Substance Use: No Preferred Language: Chinese Communication Ability: Effective Soil Fertility Extension Specialist Required: No Beliefs That Will Affect Care: L[employer] Day L[employer] Day Beliefs: Christian, last rites Current Living Situation: Family Current Living Situation Comment: Lives w/granddaughter and great grandchildren Other Information That Helps Us Care for You: No Feels Safe at Home: Yes Safety Concerns: Feels Safe At This Time Review of Systems Review of Systems: All systems reviewed & are unremarkable except as noted in HPI & below Physical Exam Constitutional: WD/WN, vitals as above no acute distress, + uncomfortable and not diaphoretic Eyes: + anicteric sclerae and PERRL ENMT: dry mm Neck: trachea midline, no thyromegaly Respiratory: normal respiratory effort and able to speak in complete sentences; no respiratory distress and no labored breathing Auscultation: + crackles (faint crackles b/l bases and posterior ingram); no wheezes Cardiovascular: Rate/Rhythm: + irregularly irregular Heart Sounds: + murmur Vessels: no JVD Extremities: no edema Gastrointestinal (Abdomen): Inspection/Auscultation: abdomen normal to inspection and normal bowel sounds Percussion/Palpation: + abdomen tender (diffusely, increased pain with deep palpation RLQ, suprapubic) and + guarding Musculoskeletal: no cyanosis or clubbing, extremities motor strength 5/5 Skin: healing area L forearm -- nontender, no erythema or ecchymosis or drainage noted skin warm, dry Neurologic: PERRL, EOMI, accommodation nl, no face palsy, no dysarthria Psychiatric: Orientation: alert, oriented x 3 and cooperative Lymphatic: no cervical or axillary lymphadenopathy Results & Data Results & Data ([facility]) Vital Signs (Past 12 Hours) Vital Signs Temp Pulse Pulse Resp BP Pulse Ox 01/21/20 10:48 77 18 94 01/21/20 08:36 36.8 C 72 16 136/95 97 Laboratory Results 01/21/20 01/21/20 01/21/20 Range/Units 09:10 09:10 09:10 WBC 5.82 (4.8-10.8) K/uL RBC 3.53 L (4.2-5.4) M/uL Hgb 10.8 L (12.0-16.0) g/dL Hct 32.7 L (37-47) % MCV 92.6 (80-100) fL MCH 30.6 (25-34) pg MCHC 33.0 (32-36) g/dL RDW Std Deviation 47.7 H (36.4-46.3) fL RDW Coeff of Bear 14.1 (11.5-14.5) % Plt Count 218 (130-400) K/uL MPV 11.5 H (7.4-10.4) fL Immature Gran % (Auto) 0.0 % Neut % (Auto) 66.2 % Lymph % (Auto) 19.4 % [place] % (Auto) 12.0 % Eos % (Auto) 2.1 % Baso % (Auto) 0.3 % Reticulocyte % (Auto) Pending Neut # (Auto) 3.85 (1.4-6.5) K/uL Lymph # (Auto) 1.13 L (1.2-3.4) K/uL [place] # (Auto) 0.70 H (0.11-0.59) K/uL Eos # (Auto) 0.12 (0-0.5) K/uL Baso # (Auto) 0.02 (0-0.2) K/uL Reticulocyte # Pending Immature Gran # (Auto) 0.00 (0.00-0.02) K/uL Sodium (136-145) mmol/L Potassium (3.5-5.1) mmol/L Chloride (98-107) mmol/L Carbon Dioxide (21-32) mmol/L Anion Gap (3-11) BUN (7-18) mg/dl Creatinine (0.6-1.2) mg/dl Est Cr Clr Drug Dosing Est GFR ( Amer) Est GFR (Non-Af Amer) BUN/Creatinine Ratio (10-20) Glucose (70-99) mg/dl Calcium (8.5-10.1) mg/dl Magnesium Pending Total Bilirubin (0.2-1) mg/dl AST (15-37) U/L ALT (12-78) U/L Alkaline Phosphatase (45-117) U/L Total Protein (6.4-8.2) gm/dl Albumin (3.4-5.0) gm/dl Globulin (2.5-4.0) gm/dl Albumin/Globulin Ratio (0.9-2) Lipase (73-393) U/L TSH Pending 01/21/20 Range/Units 09:10 WBC (4.8-10.8) K/uL RBC (4.2-5.4) M/uL Hgb (12.0-16.0) g/dL Hct (37-47) % MCV (80-100) fL MCH (25-34) pg MCHC (32-36) g/dL RDW Std Deviation (36.4-46.3) fL RDW Coeff of Bear (11.5-14.5) % Plt Count (130-400) K/uL MPV (7.4-10.4) fL Immature Gran % (Auto) % Neut % (Auto) % Lymph % (Auto) % [place] % (Auto) % Eos % (Auto) % Baso % (Auto) % Reticulocyte % (Auto) Neut # (Auto) (1.4-6.5) K/uL Lymph # (Auto) (1.2-3.4) K/uL [place] # (Auto) (0.11-0.59) K/uL Eos # (Auto) (0-0.5) K/uL Baso # (Auto) (0-0.2) K/uL Reticulocyte # Immature Gran # (Auto) (0.00-0.02) K/uL Sodium 139 (136-145) mmol/L Potassium 3.3 L (3.5-5.1) mmol/L Chloride 109 H (98-107) mmol/L Carbon Dioxide 25 (21-32) mmol/L Anion Gap 5.0 (3-11) BUN 10 (7-18) mg/dl Creatinine 0.92 (0.6-1.2) mg/dl Est Cr Clr Drug Dosing Not Reportable Est GFR ( Amer) 66.3 Est GFR (Non-Af Amer) 57.2 BUN/Creatinine Ratio 10.4 (10-20) Glucose 104 H (70-99) mg/dl Calcium 9.3 (8.5-10.1) mg/dl Magnesium Total Bilirubin 0.4 (0.2-1) mg/dl AST 20 (15-37) U/L ALT 16 (12-78) U/L Alkaline Phosphatase 65 (45-117) U/L Total Protein 6.9 (6.4-8.2) gm/dl Albumin 2.8 L (3.4-5.0) gm/dl Globulin 4.1 H (2.5-4.0) gm/dl Albumin/Globulin Ratio 0.7 L (0.9-2) Lipase 88 (73-393) U/L TSH Diagnostic Findings CT A/P IMPRESSION: 1. Moderate wall thickening and mild pericolonic infiltration involving the distal descending colon, sigmoid colon and rectum. This favors a nonspecific colitis. Diverticulitis is within the differential but is considered less likely given the long segment distribution. No free air or abscess. 2. 2.7 x 2 x 1.5 cm mixed solid and cystic left lower lobe pulmonary nodule. This is highly suggestive of bronchogenic carcinoma. Pulmonary consultation is recommended. 3. Numerous hepatic cysts. Supervising Physician Co-Signing Physician Notes Attending Attestation & Admission Note: Pt seen/examined, chart reviewed, care plan d/w PA Pearl Perez. I agree w/ the samaniego components of her admission documentation. 84yo female w/ h/o chronic/permanent a.fib not on anticoagulation due to prior h/o SDH - recent admission for likely pill esophagitis from doxy - presenting with copious diarrhea beginning about the 15 of January. Had been on prolonged course of doxycycline in December into early January for infection of skin, distal left arm. She also is having acute/chronic crampy abdominal pain. Pt reports long- standing IBS symptoms. CT abd/pelvis in ER today with left-sided distal colitis. No recent travel or sick contacts. PMH, PSH, allergies, meds, sochx, famhx - reviewed VSS, no fever gen - looks dehydrated, NAD mouth - MM dry neck - no JVD heart - irregular, s1 s2 lungs - fine bibasilar rales abd - distended, BS+, mildly tender b/l lower quadrants, no HSM ext - no edema CBC, BMP reviewed CT chest 01/[address] abd/pelvis today reviewed A/P: 1. left-sided colitis - infectious vs ischemic vs diverticulitis vs other. Check c diff toxin Check stool cx Clear liquids IV fluids GI consult appreciated for other recs pain meds 2. hypokalemia - replace; mag noted to be normal 3. lung mass - patient should be counseled that this is highly concerning for malignancy; outpatient pulm f/u needed ching if desired by patient 4. a.fib - cont CCB 5. recent suspected esophagitis - PPI, carafate Kevin Rea MD PG Care Time/CCT Total # of Minutes Spent Total Time Spent with Patient: Total time spent is greater than 50% in coordination of care (as documented) at patient's floor/unit and/or counseling patient: Coding Level of Care Code 92361 OBS Care - Level 3 Diagnoses Colitis K52.9 Atrial fibrillation I48.91 Esophagitis K20.9 HTN (hypertension) I10 Hypertension type: unspecified IBS (irritable bowel syndrome) K58.9 Pulmonary nodule R91.1 Fibromyalgia M79.7 Anemia D64.9 DVT prophylaxis Z29.9 (1) HTN (hypertension) Hypertension type: unspecified Qualified Code(s): I10 - Essential (primary) hypertension
[2020-01-21] MEDS ORDERED: POTASSIUM CHLORIDE 20 MEQ TABCR PO STA (13:11)
[2020-01-21 13:30] LABS: Reticulocyte % 0.9 % (0.5-2.0); Reticulocytes # 0.03 10^6/uL (0.02-0.10)
[2020-01-21 13:39] LABS: Magnesium 2.1 mg/dl (1.8-2.4); Thyroid Stimulating Hormone 2.59 uIu/ml (0.300-4.500)
[2020-01-21] MEDS ORDERED: ZOLPIDEM TARTRATE 5 MG TAB PO PRN (14:48)
[2020-01-21] MEDS ORDERED: ACETAMINOPHEN 325 MG TAB PO PRN (14:48)
[2020-01-21] MEDS ORDERED: PROMETHAZINE HCL 12.5 MG in SODIUM CHLORIDE 0.9% 50 ML IV STA (14:48)
[2020-01-21] MEDS ORDERED: ALUMINUM/MAGNESIUM SUSP 30 ML UDC PO PRN (14:48)
[2020-01-21] MEDS ORDERED: POLYETHYLENE (MIRALAX) 17 GM PACK PO PRN (14:48)
[2020-01-21] MEDS ORDERED: ONDANSETRON INJ 2 MG/ML 2 ML VIAL IV PRN (14:48)
[2020-01-21] MEDS ORDERED: MAGNESIUM HYDROXIDE SUSP 30 ML UDC PO PRN (14:48)
[2020-01-21] MEDS ORDERED: MoRPHine SULFATE 2 MG/ML CARP IV PRN (14:48)
[2020-01-21 15:39] VITALS: O2SAT 97
--- NOTE | 2020-01-21 15:55 | Gastrointestinal Consultation ---
Date of Consultation January 21, 2020 Assessment & Plan (1) Colitis: Pt is a 84 y/o female presenting w diarrhea, abd pain , black stools which is likely related to Peptobismol ingestion. Labs showed anemia w Hgb at baseline, no leukocytosis. CT abd/pelvis showed L sided non specific colitis, no air or abscess - suspect infectious vs ischemic; less likely diverticulitis. Last colonoscopy in 2006 - diverticulosis in sigmoid colon - F/U stool studies to check for infections - Cipro/Flagyl antibx - Dicyclomine prn abd cramping - IVF support - Symptomatic management - + LLL lung nodule; per primary team Pulmonary contacted and recommend outpt workup History of Present Illness Reason for Consultation: Melena, non specific colitis Requesting Physician: Dr. Kevin Archuleta Attending Physician: Dr. Craig French History of Present Illness Pt is a 84 y/o female w PMHx of IBS, HTN, Afib on Diltiazem who presented to ED w c/o diarrhea, black stools. She's been having diarrhea for 8 days. End of December had spider bite to L wrist and was prescribed Doxycycline. She had issues w pill dysphagia but also reported that diarrhea started after the antibx. She denies recent fever, chills. + diffuse abd tenderness, no n/v. Loose stools 4-8x a day but no nocturnal awakening. She had tried taking Imodium, Levsin and most recently Peptobismol a couple of days ago. Stools black but denies any tarry apperance to it nor rectal bleeding. CT abd/pelvis w/o contrast showed moderate wall thickening and mild pericolonic infiltration involving the distal descending colon, sigmoid colon and rectum. This favors a nonspecific colitis. Diverticulitis is within the differential but is considered less likely given the long segment distribution. No free air or abscess. + numerous hepatic cysts There is a also a finding of 2.7 x 2 x 1.5 cm mixed solid and cystic left lower lobe pulmonary nodule. This is highly suggestive of bronchogenic carcinoma. Pulmonary consultation is recommended. Hospitalist team spoke w Pulmonary team, recommended outpt f/u. Labs showed no leukocytosis, stable anemia (Hgb at baseline around 10), no sign of BUN elevation. Stool cx, Cdiff, Stool Hpylori, Giardia pending. Allergies Allergy/AdvReac Type Severity Reaction Status Date / Time No Known Allergies Allergy Verified 01/09/20 17:31 Home Medications Home Medications Medication Instructions Recorded Confirmed Type PreserVision AREDS 1 tab PO DAILY 01/09/20 01/21/20 History Probiotic Liquid 1 dose PO DAILY 01/09/20 01/21/20 History Women's 50 Plus Multivitamin 1 tab PO DAILY 01/09/20 01/21/20 History diltiazem HCl 120 mg PO DAILY 01/09/20 01/21/20 History hyoscyamine sulfate 0.125 mg PO QID PRN 01/09/20 01/21/20 History tramadol 50 mg PO BID PRN 01/09/20 01/21/20 History zolpidem 5 mg PO HS PRN 01/09/20 01/21/20 History pantoprazole 40 mg PO DAILY 60 Days #60 tab 01/10/20 01/21/20 Rx sucralfate [Carafate] 1 gm PO ACHS 14 Days #56 tab 01/10/20 01/21/20 Rx Patient History Medical History Atrial fibrillation (Chronic) Chronic osteoarthritis Fibromyalgia (Chronic) IBS (irritable bowel syndrome) (Chronic) SDH (subdural hematoma) Surgical History S/P appendectomy (Inactive) S/P cholecystectomy (Inactive) S/P hysterectomy (Inactive) S/P tonsillectomy (Inactive) Family History Mother Stroke Sister Stroke Social History Smoking Status: Former smoker Tobacco Type: Cigarettes Age Started Using Tobacco: 14; Age Quit Using Tobacco: 59; Cigarettes Per Day: 3 packs per week; Hx Alcohol Use: Yes Alcohol Intake Frequency Comment: 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 No recent etoh use Hx Substance Use: No Preferred Language: Uzbek Communication Ability: Effective Aquatics Specialist Required: No Beliefs That Will Affect Care: Anglican Anglican Beliefs: Congregation, last rites Current Living Situation: Family Current Living Situation Comment: Lives w/granddaughter and great grandchildren Other Information That Helps Us Care for You: No Feels Safe at Home: Yes Safety Concerns: Feels Safe At This Time Review of Systems Review of Systems: All systems reviewed & are unremarkable except as noted in HPI & below Physical Exam Constitutional: WD/WN, vitals as above well groomed, cooperative and comfortable Eyes: PERRL, conjunctivae normal, anicteric sclerae ENMT: external ear and nose normal, oropharynx normal Respiratory: normal respiratory effort, lungs clear to auscultation Cardiovascular: RRR, no murmur, no edema Gastrointestinal (Abdomen): Inspection/Auscultation: + hypoactive bowel sounds Percussion/Palpation: + abdomen tender and abdomen soft Skin: no rashes, warm and dry no jaundice Psychiatric: A+Ox3, euthymic affect Lymphatic: no lymphedema Results & Data ([facility]) Vital Signs (Past 12 Hours) Vital Signs Temp Pulse Pulse Resp BP BP Pulse Ox 01/21/20 15:39 36.7 C 64 17 172/79 H 97 01/21/20 14:22 59 L 18 99 01/21/20 13:33 60 18 152/71 H 98 01/21/20 10:48 77 18 94 01/21/20 08:36 36.8 C 72 16 136/95 97
[2020-01-21 16:10] LABS: Prothrombin Time 10.4 Seconds (9.0-12.0)
[2020-01-21] MEDS: SUCRALFATE 1 GM TAB PO SCH ×2 (16:27→21:19)
[2020-01-21] MEDS: NSS + 20MEQ KCL 20 MEQ/1,000 ML BAG IV SCH (16:27)
[2020-01-21] MEDS ORDERED: HydrALAZINE HCL 20 MG/ML VIAL IV PRN (17:05)
[2020-01-21] MEDS: metroNIDAZOLE 500 MG/100 ML BAG IV SCH (18:05)
[2020-01-21] MEDS: CIPROFLOXACIN / D5W 400 MG/200 ML BAG IV SCH (18:05)
[2020-01-21] MEDS: TRAMADOL HCL 50 MG TABLET PO PRN (21:19)
[2020-01-21] MEDS: HYOSCYAMINE SULFATE 0.125 MG TAB PO PRN (22:14)
[2020-01-22] MEDS: metroNIDAZOLE 500 MG/100 ML BAG IV SCH ×2 (00:44→08:02)
[2020-01-22] MEDS: NSS + 20MEQ KCL 20 MEQ/1,000 ML BAG IV SCH (03:55)
[2020-01-22] MEDS: CIPROFLOXACIN / D5W 400 MG/200 ML BAG IV SCH (06:02)
[2020-01-22 06:47] LABS: Basophils # (auto) 0.02 K/uL (0-0.2); Basophils % (auto) 0.5 %; Eosinophils # (auto) 0.14 K/uL (0-0.5); Eosinophils % (auto) 3.7 %; Hematocrit (blood only) 30.4 % (37-47); Hemoglobin 9.7 g/dL (12.0-16.0); Lymphocytes # (auto) 1.54 K/uL (1.2-3.4); Lymphocytes % (auto) 40.3 %; Mean Corpuscular Hemoglobin 29.6 pg (25-34); Mean Corpuscular Hgb Conc 31.9 g/dL (32-36); Mean Corpuscular Volume 92.7 fL (80-100); Mean Platelet Volume 11.4 fL (7.4-10.4); Monocytes # (auto) 0.36 K/uL (0.11-0.59); Monocytes % (auto) 9.4 %; Neutrophils # (auto) 1.76 K/uL (1.4-6.5); Neutrophils % (auto) 46.1 %; Platelet Count 189 K/uL (130-400); RDW Coefficient of Variation 14.1 % (11.5-14.5); RDW Standard Deviation 48.1 fL (36.4-46.3); Red Blood Count 3.28 M/uL (4.2-5.4); White Blood Count 3.82 K/uL (4.8-10.8)
[2020-01-22 07:22] LABS: Albumin Level 2.3 gm/dl (3.4-5.0); BUN Creatinine Ratio 9.9 (10-20); Calcium 7.8 mg/dl (8.5-10.1); Creatinine Clr Calc Pharmacy 71.5 ml/min; Est GFR (Non-African American) 82.8; Potassium 3.8 mmol/L (3.5-5.1)
[2020-01-22 07:24] LABS: Albumin Globulin Ratio 0.7 (0.9-2); Bilirubin,Total 0.4 mg/dl (0.2-1); Ferritin 74.3 ng/ml (8-388); Globulin 3.5 gm/dl (2.5-4.0); Total Protein 5.8 gm/dl (6.4-8.2)
[2020-01-22 07:56] VITALS: PULSE 66
[2020-01-22] MEDS: SUCRALFATE 1 GM TAB PO SCH ×2 (07:57→11:49)
[2020-01-22] MEDS ORDERED: dilTIAZem HCL 120 MG CAPCR PO SCH (09:00)
[2020-01-22] MEDS ORDERED: NON-FORMULARY MEDICATION (Vitamins A,C,E-Zinc-Copper [Preservision Areds] 1 TAB) PO SCH (09:00)
[2020-01-22] MEDS ORDERED: MULTIVITAMIN TAB PO SCH (09:00)
[2020-01-22] MEDS ORDERED: PANTOprazole 40 MG TAB PO SCH (09:00)
--- NOTE | 2020-01-22 09:51 | Hospitalist Progress Note ---
Date of Service January 22, 2020 Assessment & Plan (1) Colitis: * Obs medical --> CTAP favoring a non-specific colitis of distal descending colon, sigmoid colon and rectum. Diverticulitis in differential but less likely given long segment distribution. ?cdiff vs * Supportive care -- NSS + 20meq KCl * Tramadol, morphine prn pain. Avoiding NSAIDs in setting of possible colitis/bleeding. Zofran prn nausea * GI consulted -- appreciate assistance * Cdiff ordered * Fecal occult blood ordered * Stool studies * Added magnesium, replace electrolytes as needed * Clear liquid diet for now --> NPO after midnight for possible scope pending GI evaluation * Labs in AM (2) Atrial fibrillation: * Chronic. * EKG pending * Not on anticoagulation secondary to hx SDH -- has been rate controlled. Per patient, she does not see cardiology anymore because she has not had any issues * Continue home diltiazem 120mg daily (3) Esophagitis: * Recently thought to have esophagitis induced by doxycycline use -> continuing carafate and protonix 40mg daily * Added MOM for dyspepsia * ?H.pylori given increased dyspepsia/belching. Studies ordered (4) HTN (hypertension): * Per patient, diltiazem not actually for BP * Continue home diltiazem 120mg daily * BP currently 152/71 -- elevated likely secondary to pain (5) IBS (irritable bowel syndrome): * Chronic. Takes hyoscyamine as needed. Continue (6) Pulmonary nodule: * Seen on imaging, concerning for bronchogenic carcinoma. distant smoking history. * Patient aware. Spoke with on-call pulmonary team --> rec'd outpatient imaging for follow-up. Not for bronch biopsy at this time -- will need set up f/u at discharge (7) Fibromyalgia: * Continue home medications (8) Anemia: * H/h 10.8/32.7 -- appear patient with low values back to 2014. Although MCV 92.6, will add iron studies to see if anemia of chronic disease vs other * Follow AM labs (9) DVT prophylaxis: * SCDs * Chemophroph held in setting of possible bleed Admission and Anticipated Discharge Date Admission Date: January 21, 2020 Results & Data Results & Data ([facility]) Vital Signs (Past 12 Hours) Vital Signs Temp Pulse Resp BP BP Pulse Ox 01/22/20 07:53 36.5 C 66 126/73 97 01/22/20 05:54 137/76 01/21/20 22:59 36.7 C 73 14 97 Laboratory Results 01/22/20 01/22/20 01/21/20 Range/Units 06:34 06:34 21:40 WBC 3.82 L (4.8-10.8) K/uL RBC 3.28 L (4.2-5.4) M/uL Hgb 9.7 L (12.0-16.0) g/dL Hct 30.4 L (37-47) % MCV 92.7 (80-100) fL MCH 29.6 (25-34) pg MCHC 31.9 L (32-36) g/dL RDW Std Deviation 48.1 H (36.4-46.3) fL RDW Coeff of Bear 14.1 (11.5-14.5) % Plt Count 189 (130-400) K/uL MPV 11.4 H (7.4-10.4) fL Immature Gran % (Auto) 0.0 % Neut % (Auto) 46.1 % Lymph % (Auto) 40.3 % [place] % (Auto) 9.4 % Eos % (Auto) 3.7 % Baso % (Auto) 0.5 % Reticulocyte % (Auto) (0.5-2.0) % Neut # (Auto) 1.76 (1.4-6.5) K/uL Lymph # (Auto) 1.54 (1.2-3.4) K/uL [place] # (Auto) 0.36 (0.11-0.59) K/uL Eos # (Auto) 0.14 (0-0.5) K/uL Baso # (Auto) 0.02 (0-0.2) K/uL Reticulocyte # (0.02-0.10) 10^6/uL Immature Gran # (Auto) 0.00 (0.00-0.02) K/uL PT INR Sodium 142 (136-145) mmol/L Potassium 3.8 D (3.5-5.1) mmol/L Chloride 116 H (98-107) mmol/L Carbon Dioxide 23 (21-32) mmol/L Anion Gap 3.0 (3-11) BUN 6 L (7-18) mg/dl Creatinine 0.62 D (0.6-1.2) mg/dl Est Cr Clr Drug Dosing 71.5 ml/min Est GFR ( Amer) 96.0 Est GFR (Non-Af Amer) 82.8 BUN/Creatinine Ratio 9.9 L (10-20) Glucose 76 (70-99) mg/dl Calcium 7.8 L D (8.5-10.1) mg/dl Magnesium (1.8-2.4) mg/dl Iron 58 (35-150) mcg/dl TIBC 176 L (250-450) mcg/dl Transferrin 172 L (200-360) mg/dl Transferrin % Sat 24 (15-50) % Ferritin 74.3 (8-388) ng/ml Total Bilirubin 0.4 (0.2-1) mg/dl AST 17 (15-37) U/L ALT 13 (12-78) U/L Alkaline Phosphatase 56 (45-117) U/L Lactate Dehydrogenase (84-246) U/L Total Protein 5.8 L (6.4-8.2) gm/dl Albumin 2.3 L (3.4-5.0) gm/dl Globulin 3.5 (2.5-4.0) gm/dl Albumin/Globulin Ratio 0.7 L (0.9-2) TSH (0.300-4.500) uIu/ml Stool Occult Bld Scrn Negative (Negative) Stl C. diff Tox B Gene (Neg) Stool H. pylori Ag Giardia Antigen 01/21/20 01/21/20 01/21/20 Range/Units 15:36 14:50 14:50 WBC (4.8-10.8) K/uL RBC (4.2-5.4) M/uL Hgb (12.0-16.0) g/dL Hct (37-47) % MCV (80-100) fL MCH (25-34) pg MCHC (32-36) g/dL RDW Std Deviation (36.4-46.3) fL RDW Coeff of Bear (11.5-14.5) % Plt Count (130-400) K/uL MPV (7.4-10.4) fL Immature Gran % (Auto) % Neut % (Auto) % Lymph % (Auto) % [place] % (Auto) % Eos % (Auto) % Baso % (Auto) % Reticulocyte % (Auto) (0.5-2.0) % Neut # (Auto) (1.4-6.5) K/uL Lymph # (Auto) (1.2-3.4) K/uL [place] # (Auto) (0.11-0.59) K/uL Eos # (Auto) (0-0.5) K/uL Baso # (Auto) (0-0.2) K/uL Reticulocyte # (0.02-0.10) 10^6/uL Immature Gran # (Auto) (0.00-0.02) K/uL PT 10.4 INR 1.0 Sodium (136-145) mmol/L Potassium (3.5-5.1) mmol/L Chloride (98-107) mmol/L Carbon Dioxide (21-32) mmol/L Anion Gap (3-11) BUN (7-18) mg/dl Creatinine (0.6-1.2) mg/dl Est Cr Clr Drug Dosing ml/min Est GFR ( Amer) Est GFR (Non-Af Amer) BUN/Creatinine Ratio (10-20) Glucose (70-99) mg/dl Calcium (8.5-10.1) mg/dl Magnesium (1.8-2.4) mg/dl Iron (35-150) mcg/dl TIBC (250-450) mcg/dl Transferrin (200-360) mg/dl Transferrin % Sat (15-50) % Ferritin (8-388) ng/ml Total Bilirubin (0.2-1) mg/dl AST (15-37) U/L ALT (12-78) U/L Alkaline Phosphatase (45-117) U/L Lactate Dehydrogenase (84-246) U/L Total Protein (6.4-8.2) gm/dl Albumin (3.4-5.0) gm/dl Globulin (2.5-4.0) gm/dl Albumin/Globulin Ratio (0.9-2) TSH (0.300-4.500) uIu/ml Stool Occult Bld Scrn (Negative) Stl C. diff Tox B Gene (Neg) Stool H. pylori Ag Pending Giardia Antigen Pending 01/21/20 01/21/20 01/21/20 Range/Units 14:50 13:43 09:10 WBC (4.8-10.8) K/uL RBC (4.2-5.4) M/uL Hgb (12.0-16.0) g/dL Hct (37-47) % MCV (80-100) fL MCH (25-34) pg MCHC (32-36) g/dL RDW Std Deviation (36.4-46.3) fL RDW Coeff of Bear (11.5-14.5) % Plt Count (130-400) K/uL MPV (7.4-10.4) fL Immature Gran % (Auto) % Neut % (Auto) % Lymph % (Auto) % [place] % (Auto) % Eos % (Auto) % Baso % (Auto) % Reticulocyte % (Auto) (0.5-2.0) % Neut # (Auto) (1.4-6.5) K/uL Lymph # (Auto) (1.2-3.4) K/uL [place] # (Auto) (0.11-0.59) K/uL Eos # (Auto) (0-0.5) K/uL Baso # (Auto) (0-0.2) K/uL Reticulocyte # (0.02-0.10) 10^6/uL Immature Gran # (Auto) (0.00-0.02) K/uL PT Cancelled INR Cancelled Sodium (136-145) mmol/L Potassium (3.5-5.1) mmol/L Chloride (98-107) mmol/L Carbon Dioxide (21-32) mmol/L Anion Gap (3-11) BUN (7-18) mg/dl Creatinine (0.6-1.2) mg/dl Est Cr Clr Drug Dosing ml/min Est GFR ( Amer) Est GFR (Non-Af Amer) BUN/Creatinine Ratio (10-20) Glucose (70-99) mg/dl Calcium (8.5-10.1) mg/dl Magnesium (1.8-2.4) mg/dl Iron (35-150) mcg/dl TIBC (250-450) mcg/dl Transferrin (200-360) mg/dl Transferrin % Sat (15-50) % Ferritin (8-388) ng/ml Total Bilirubin (0.2-1) mg/dl AST (15-37) U/L ALT (12-78) U/L Alkaline Phosphatase (45-117) U/L Lactate Dehydrogenase 119 (84-246) U/L Total Protein (6.4-8.2) gm/dl Albumin (3.4-5.0) gm/dl Globulin (2.5-4.0) gm/dl Albumin/Globulin Ratio (0.9-2) TSH (0.300-4.500) uIu/ml Stool Occult Bld Scrn (Negative) Stl C. diff Tox B Gene Negative Cdiff Gene (Neg) Stool H. pylori Ag Giardia Antigen 01/21/20 01/21/20 01/21/20 Range/Units 09:10 09:10 09:10 WBC (4.8-10.8) K/uL RBC (4.2-5.4) M/uL Hgb (12.0-16.0) g/dL Hct (37-47) % MCV (80-100) fL MCH (25-34) pg MCHC (32-36) g/dL RDW Std Deviation (36.4-46.3) fL RDW Coeff of Bear (11.5-14.5) % Plt Count (130-400) K/uL MPV (7.4-10.4) fL Immature Gran % (Auto) % Neut % (Auto) % Lymph % (Auto) % [place] % (Auto) % Eos % (Auto) % Baso % (Auto) % Reticulocyte % (Auto) Cancelled 0.9 (0.5-2.0) % Neut # (Auto) (1.4-6.5) K/uL Lymph # (Auto) (1.2-3.4) K/uL [place] # (Auto) (0.11-0.59) K/uL Eos # (Auto) (0-0.5) K/uL Baso # (Auto) (0-0.2) K/uL Reticulocyte # Cancelled 0.03 (0.02-0.10) 10^6/uL Immature Gran # (Auto) (0.00-0.02) K/uL PT INR Sodium (136-145) mmol/L Potassium (3.5-5.1) mmol/L Chloride (98-107) mmol/L Carbon Dioxide (21-32) mmol/L Anion Gap (3-11) BUN (7-18) mg/dl Creatinine (0.6-1.2) mg/dl Est Cr Clr Drug Dosing ml/min Est GFR ( Amer) Est GFR (Non-Af Amer) BUN/Creatinine Ratio (10-20) Glucose (70-99) mg/dl Calcium (8.5-10.1) mg/dl Magnesium 2.1 (1.8-2.4) mg/dl Iron (35-150) mcg/dl TIBC (250-450) mcg/dl Transferrin (200-360) mg/dl Transferrin % Sat (15-50) % Ferritin (8-388) ng/ml Total Bilirubin (0.2-1) mg/dl AST (15-37) U/L ALT (12-78) U/L Alkaline Phosphatase (45-117) U/L Lactate Dehydrogenase (84-246) U/L Total Protein (6.4-8.2) gm/dl Albumin (3.4-5.0) gm/dl Globulin (2.5-4.0) gm/dl Albumin/Globulin Ratio (0.9-2) TSH 2.590 (0.300-4.500) uIu/ml Stool Occult Bld Scrn (Negative) Stl C. diff Tox B Gene (Neg) Stool H. pylori Ag Giardia Antigen PG Care Time/CCT Total # of Minutes Spent Total Time Spent with Patient: Total time spent is greater than 50% in coordination of care (as documented) at patient's floor/unit and/or counseling patient: Coding Diagnoses Colitis K52.9 Atrial fibrillation I48.91 Esophagitis K20.9 HTN (hypertension) I10 Hypertension type: unspecified IBS (irritable bowel syndrome) K58.9 Pulmonary nodule R91.1 Fibromyalgia M79.7 Anemia D64.9 DVT prophylaxis Z29.9 (1) HTN (hypertension) Hypertension type: unspecified Qualified Code(s): I10 - Essential (primary) hypertension
[2020-01-22 10:55] VITALS: TEMP 97.5
[2020-01-22] MEDS: HYOSCYAMINE SULFATE 0.125 MG TAB PO PRN (10:55)
[2020-01-22] MEDS: TRAMADOL HCL 50 MG TABLET PO PRN (10:58)
--- NOTE | 2020-01-22 12:57 | Gastroenterology Progress Note ---
Date of Service January 22, 2020 Assessment & Plan (1) Colitis: Pt is a 84 y/o female presenting w diarrhea, abd pain , black stools which is likely related to Peptobismol ingestion. Labs showed anemia w Hgb at baseline, no leukocytosis. CT abd/pelvis showed L sided non specific colitis, no air or abscess - suspect infectious vs ischemic; less likely diverticulitis. Last colonoscopy in 2006 - diverticulosis in sigmoid colon Only 1 episode of loose, brown stools since admitted. Hemoccult negative. Abd pain much improved. No n/v, Cdiff negative. - F/U stool studies to check for infections - Cipro/Flagyl antibx was refused by pt - Hyoscyamine prn abd cramping - OK to DC IVF if tolerating PO meds well - Of note, pt had refused evaluation for anemia including any endoscopic workup. She is also aware of L lung nodule concerning for cancer but refused any biopsy or surgery. - GI to sign off; pls recall prn Admission and Anticipated Discharge Date Admission Date: January 21, 2020 Subjective Pt only had 1 loose BM since admitted. Stool brown. She reports less abd pain w Hyoscyamine. Denies n/v. Hgb w mild decrease to 9.7 today. Cdiff negative Review of Systems Review of Systems: All systems reviewed & are unremarkable except as noted in HPI & below Physical Exam Constitutional: WD/WN, vitals as above well groomed, cooperative and comfortable Eyes: PERRL, conjunctivae normal, anicteric sclerae ENMT: external ear and nose normal, oropharynx normal Respiratory: normal respiratory effort, lungs clear to auscultation Cardiovascular: RRR, no murmur, no edema Gastrointestinal (Abdomen): normal bowel sounds, soft, nontender, no hepatosplenomegaly Skin: no rashes, warm and dry no jaundice Psychiatric: A+Ox3, euthymic affect Lymphatic: no lymphedema Results & Data ([facility]) Vital Signs (Past 12 Hours) Vital Signs Temp Pulse BP BP Pulse Ox 01/22/20 10:54 36.4 C L 01/22/20 07:53 36.5 C 66 126/73 97 01/22/20 05:54 137/76
--- NOTE | 2020-01-22 13:52 | Discharge Summary ---
Date of Service January 22, 2020 Admission HPI Per Admitting Provider 84 year old female with PMHx significant for atrial fibrillation (not on anticoagulation d/t SDH, rate controlled), IBS, fibromyalgia presented to the emergency department with worsening abdominal pain, increased diarrhea, and now with melena. Patient was previously discharged on January 09 for dysphagia/chest pain and thought to have an esophagitis secondary to doxycycline use. This morning --> two bowel movements that were black in coloration. She states she believes this was due to pepto-bismol that she took the night before. She states has never had this kind of diarrhea except when she has been on antibiotic in the past but even then never like this. Rates it a 4/10 and diffuse, but states she deals with chronic pain due to her arthritis and fibromyalgia. Pain not worsening with eating, better when laying completely stil. She states she has been eating tuna fish with mayonnaise, egg whites, while rice, bran and crackers. She states she had been using the Levsin for pain relief but this did not help. She states she had minimal if no relief with the tramadol that she takes regularly outpatient for pain. Discussed morphine, although she says this "knocks her out" but is willing to have it on standby if needed for pain. Denies nausea or vomiting, but she does endorse increased belching and explosive diarrhea. No night sweats or unexplained weight loss, although she does endorse 2lb weight loss with the diarrhea. Denies chest pain, shortness of breath, (dysphagia improved since discontinuing the Doxycycline). Prior to last admission: She states on December 24 had a bite of some kind, thinking it was a spider bite on her distal left forearm. Bite never went away and it got hot in the evenings and warm, wit swelling. Bite initially the size of a quarter, red, warm, raised. On January 05, it blistered, "taking up space of two overlapping quarters" over her distal left forearm and over the wrist. She notes she had a slight temperature, with highest recording 101.1F. She notes this is not normal for her as she typically runs 97.7F plus or minus a degree. Most temperatures she had taken at home had been a degree or so above her normal. 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 She states she initially had a telemedicine on January 02 and although she assured her PCP she had not seen any ticks as she has much experience with them in the past, her PCP had concerns for lyme disease and wanted the patient to start treatment with the doxycycline. Patient states she began treatment with the doxycycline despite the facts that she did not believe she had been bit by a tick. She states she had seen a tick a couple days ago but that it was not attached and she got him before he bit her. She notes her dog does have them from time to time. On January 08 admitted to hospital because se had chest pressure, trouble breathing/speaking and swallowing and had increased gas. On January 09 discharged with doxycycline sopped, although her PCP wanted her to continue it. She was sent with sucralfate and Protonix/. January 10- she experienced constipation, "4 almond size pieces of stool" "worked my way up to a lemon. On January 14 evening, she had a normal BM, brown. States she thinks she saw some "fog"/ Denies hematochezia and She has a history of irritable bowel and states she as had alternating constipation and diarrhea. January 15, profuse diarrhea for 2.5 hours in the bathroom. Since the 11-19, consistent diarrhea. January 16 -- 3 BMs January 17 -- 8 BMs but notes she ate spicy vegetables - BMs - 5 BMs In the beginning foul odor, but the odor has subsided over night. Containing mucous and yellow discoloration. She she had a colonoscopy at age 75, which was normal. No history of Crohn or ulcerative colitis. Social: quit Feb 03, 1995. Started at age 14 and quit at age 59, smoked approximately 3 packs/weeks. Alcohol abuse in the past but never treated. states drank heavy for approximately 7 yeas. No abuse after . No current alcohol intake. ER Course: NSS 500cc x 1. Levsin SL x 1, Tramadol 50mg x1. CBC with WBC 5.8k, h/h 10.8/32.7, Plt 218, CMP with Na 139, K low at 3.3, Bun 10, Cr 0.92, Glucose 104. LFTs wnl. Lipase 88. CTAP with moderate wall thickening and mild pericolonic infiltration involving distal descending colon, sigmoid colon and rectum favoring a nonspecific colitis. Admission Exam Per Admitting Provider Constitutional: WD/WN, vitals as above no acute distress, + uncomfortable and not diaphoretic Eyes: + anicteric sclerae and PERRL ENMT: dry mm Neck: trachea midline, no thyromegaly Respiratory: normal respiratory effort and able to speak in complete sentences; no respiratory distress and no labored breathing Auscultation: + crackles (faint crackles b/l bases and posterior ingram); no wheezes Cardiovascular: Rate/Rhythm: + irregularly irregular Heart Sounds: + murmur Vessels: no JVD Extremities: no edema Gastrointestinal (Abdomen): Inspection/Auscultation: abdomen normal to inspection and normal bowel sounds Percussion/Palpation: + abdomen tender (diffusely, increased pain with deep palpation RLQ, suprapubic) and + guarding Musculoskeletal: no cyanosis or clubbing, extremities motor strength 5/5 Skin: healing area L forearm -- nontender, no erythema or ecchymosis or drainage noted skin warm, dry Neurologic: PERRL, EOMI, accommodation nl, no face palsy, no dysarthria Psychiatric: Orientation: alert, oriented x 3 and cooperative Lymphatic: no cervical or axillary lymphadenopathy Principal Diagnosis Colitis Discharge Exam Constitutional WD/WN, vitals as above comfortable; no acute distress and not diaphoretic Eyes + anicteric sclerae and PERRL ENMT external ear and nose normal, oropharynx normal Neck trachea midline, no thyromegaly Respiratory normal respiratory effort and able to speak in complete sentences; no respiratory distress and no labored breathing Auscultation: + crackles; no rales and no wheezes Cardiovascular Rate/Rhythm: + irregularly irregular Heart Sounds: + murmur Vessels: no JVD Extremities: no edema Gastrointestinal (Abdomen) Inspection/Auscultation: abdomen normal to inspection and normal bowel sounds Percussion/Palpation: + abdomen tender (minimal, generalized) and abdomen soft; no guarding Musculoskeletal no cyanosis or clubbing, extremities motor strength 5/5 Neurologic PERRL, EOMI, accommodation nl, no face palsy, no dysarthria Psychiatric Orientation: alert, oriented x 3 and cooperative Lymphatic no cervical or axillary lymphadenopathy Discharge Data Allergies Allergy/AdvReac Type Severity Reaction Status Date / Time No Known Allergies Allergy Verified 01/09/20 17:31 Consultations 01/21/20 11:48 ED Decision to Admit Stat 01/21/20 14:48 Consult Gastroenterology Routine Ordered Studies 01/21/20 08:50 CT abd pelvis wo con Stat Hospital Course (1) Colitis: CTAP favoring a non-specific colitis of distal descending colon, sigmoid colon and rectum. Diverticulitis in differential but less likely given long segment distribution cdiff negative Supportive treatment GI consulted -- rec'd cipro/flagyl although patient refused any antibiotics unless shown proof of bacterial infection. Educated that scopes not performed during acute infections and that recommendations are for IV abx and bowel rest. Fecal occult blood negative. H.pylori antigen negative although patient did take peptobismol prior to admission --> if continues to have issues could consider repeating outpatient. Giardia not detected Discharged with prescription of cholestyramine for diarrhea as she was no longer requiring IV fluids, did not want IV abx and did not require anything for pain Was also found to have 2.7 c 2 x 1.5cm mixed solid/cystic LLL pulmonary nodule highly suggestive of bronchogenic carcinoma. Discussed with pulmonary team who rec'd outpatient PET/further imaging. Patient declined follow up to be set up and stated "if it's cancer that's what it is and I'm not going to do anything about it" (2) Atrial fibrillation: Chronic. Not on anticoagulation secondary to hx SDH -- has been rate cont rolled. Per patient, she does not see cardiology anymore because she has not had any issues * Continued home diltiazem 120mg daily (3) Esophagitis: * Recently thought to have esophagitis induced by doxycycline use -> continued carafate and protonix 40mg daily (4) HTN (hypertension): * Per patient, diltiazem not actually for BP but for her afib. Continued. BP stable (5) IBS (irritable bowel syndrome): * Chronic. Takes hyoscyamine as needed. Continued (6) Pulmonary nodule: * Seen on imaging, concerning for bronchogenic carcinoma. distant smoking history. * Patient aware. Spoke with on-call pulmonary team --> rec'd outpatient imaging for follow-up. Not for bronch biopsy at this time. * Asked patient several times regarding follow-up -- declined * Recommend follow up with PCP for ongoing discussion given high concern for malignancy and rapid progression from previous imaging (7) Fibromyalgia: * Continued home medications (8) Anemia: * H/h 10.8/32.7 -- appear patient with low values back to 2013. * Iron studies c/w anemia of chronic disease, possibly related to concerning malignancy as above (9) DVT prophylaxis: * SCDs * Chemophroph held in setting of possible bleed Discharged home Total Time Total Time Spent Total Time Spent (In Minutes): 70 Discharge Plan Discharge Items Patient Disposition: Home - Self-Care Reason For Visit: MELENA,COLITIS Discharge Diagnosis: Colitis Goals: You have been hospitalized for an acute medical problem. During your stay at [facility], we have made an effort to correct the problem that brought you to the hospital while keeping you as comfortable as possible. Medications were used to bring your condition under control and your discharge instructions will include directions for any medications you should take after leaving the hospital. Please make sure you see your Primary Care Provider as part of your follow up plan. Activity: Resume your previous activity Non-emergency contact: Primary Care Provider Call non-emergency contact if: your symptoms worsen, your pain is worsening and you have a fever Follow-up/Referrals: Eden Proctor MD [Primary Care Provider] - 01/29/20 1:15 pm Diet: Low Fiber Addtl Attending Provider Instructions: You were hospitalized for diarrhea and found to have a colitis on imaging. GI team was consulted and recommended antibiotics in the form of Metronidazole and Ciprofloxacin, but as you have previously voiced, you would like to hold off these medications unless a test comes back with a positive result. You may continue to use hyoscyamine as needed for abdominal pain and you have been sent a prescription for cholestyramine packets to be taken as 4gm FOUR times daily to help with diarrhea. You were checked for cdiff given your recent antibiotic use with doxycycline and that was negative. Iron studies were preformed and show anemia of chronic disease and no need to start on any oral supplementation at this time. As discussed, you had multiple abnormal findings in your chest that are concerning for malignancy. Follow up was offered but you have declined that at this time. Please follow up with your primary care provider this week and you may want to re-discuss this in the future given high concern for cancer. Follow up imaging is recommended. Please follow up with your PCP this week and you have been given repeat labs to monitor your blood counts in the next week. Please return to the emergency room for any worsening abdominal pain, fever, increased diarrhea or for any other symptoms that are concerning for you. It has been a pleasure being a part of the medical team providing for you while you have been in the hospital. Take care! Pending Studies at Discharge: Yes Studies:: Giardia, H.pylori, stool cultre Stand-Alone Forms: My [facility] Medications and DC Order Prescriptions: New Cholestyramine Light 4 gram Powder In Packet 4 g PO BID@1000,2200 Qty: 60 RF: 0 Continued tramadol 50 mg tablet 50 mg PO BID PRN (Reason: Pain) RF: 0 diltiazem HCl 120 mg capsule,extended release 24hr 120 mg PO DAILY RF: 0 zolpidem 5 mg tablet 5 mg PO HS PRN (Reason: Sleep) RF: 0 PreserVision AREDS 7,160-113-100 qxvl-ds-eucx Tablet 1 tab PO DAILY RF: 0 Women's 50 Plus Multivitamin 400 mcg-500 mg calcium-20 mcg Tablet 1 tab PO DAILY RF: 0 Probiotic Liquid 1 dose PO DAILY RF: 0 hyoscyamine sulfate 0.125 mg Tablet 0.125 mg PO QID PRN (Reason: Abdominal Pain) RF: 0 pantoprazole 40 mg Tablet,Delayed Release (Dr/Ec) 40 mg PO DAILY 60 Days Qty: 60 RF: 0 Discharge Orders: Discharge Order (Routine); Ordered 01/22/20 Ordered By: Pearl Perez Admission Data Admit Date/Time: 01/21/20 13:11 Attending Provider: Dione Adams Admit Provider: Kevin Rea Primary Care Provider: Eden Proctor Other Providers: Kevin Rea ; Craig French Other Interventions: Discharge Summary Assessment (RN) Last Done: 01/22/20 14:10 Supervising Physician Co-Signing Physician Notes PA Supervision Note: I personally saw and examined the patient. I verified all samaniego points and agree with RAO Perez with the following exceptions and/or additions: Patient feeling much improved, no abdominal pain or diarrhea since admission. Is ready to go home. Vitals reviewed NAD, AAOx3 irreg irreg no mgr CTAB no wcr Abd +BS soft NT ND Ext no edema Stable for dc to home, will f/u on stool studies after dc suggest cholestyramine for diarrhea Coding Level of Care Code 80671 OBS Care - Discharge Diagnoses Colitis K52.9 Atrial fibrillation I48.91 Esophagitis K20.9 HTN (hypertension) I10 Hypertension type: unspecified IBS (irritable bowel syndrome) K58.9 Pulmonary nodule R91.1 Fibromyalgia M79.7 Anemia D64.9 DVT prophylaxis Z29.9
[2020-01-22 14:11] VITALS: BP 137/76
[2020-01-22] MEDS ORDERED: CHOLESTYRAMINE LIGHT 4 GM PKT PO SCH (22:00)
--- NOTE | 2020-01-23 06:01 | Electrocardiogram Report ---
Test Reason : Blood Pressure : / mmHG Vent. Rate : 064 BPM Atrial Rate : 081 BPM P-R Int : 000 ms QRS Dur : 092 ms QT Int : 438 ms P-R-T Axes : 000 010 001 degrees QTc Int : 451 ms Atrial fibrillation Low voltage QRS Abnormal ECG When compared with ECG of 09-JAN-2020 16:36, No significant change was found Confirmed by Jose Lechuga ([id number]) on 01/23/2020 6:00:57 AM Referred By: REFERRED SELF Confirmed By:Jose Lechuga
== END 2020-01-22 15:02 | disposition home or self-care (01) ==
LOC: 3N 08:29 → ED 08:29 → SUATTDRO 13:11 → 3N 14:22

== ENCOUNTER 2022-07-18 18:49 | Inpatient (IN) ==
[2022-07-18] MEDS ORDERED: CEFEPIME 2,000 MG/20 ML VIAL IV STA ×2 (19:58→21:35)
[2022-07-18] MEDS ORDERED: SODIUM CHLORIDE 0.9% 1000ML 500 ML IV SCH (20:00)
--- NOTE | 2022-07-18 20:12 | Emergency Department Note ---
Impression & Plan Hypoxia, Pneumonia, Flu-like symptoms, COVID-19 ED Provider Note NAME: GAIL BUCIO AGE: 86 SEX: F : 1935 ARRIVES VIA: Ambulance INFORMANT: [Patient][family] ED PROVIDER(S): [Cristian Kinney MD] CHIEF COMPLAINT: Illness HISTORY OF PRESENT ILLNESS: The patient is an 86-year-old female presents to the ED with about 2 weeks of symptoms. She has had all over body pain, a temperature elevation and a productive cough. The cough is productive of brown sputum. She has had nausea but no vomiting or diarrhea. No chest pain or abdominal pain. She does not truly feel short of breath. She has no diagnosed lung disease. Of note, the patient's O2 saturation was low upon EMS arrival, she was placed on oxygen. She does not typically wear O2 PMHx/PSHx: See Below SOCIAL HISTORY: See Below. PHYSICAL EXAM: GENERAL: Patient is in no acute distress. HEENT: No acute trauma, normocephalic atraumatic, mucous membranes moist, no nasal congestion. NECK: No stridor, no adenopathy, no meningismus, trachea is midline. LUNGS: There are some crackles bilaterally, slightly worse on the left. No respiratory distress. Faint wheezes heard bilaterally. HEART: Irregular rhythm, normal rate, 3/6 systolic murmur. ABDOMEN: Soft, nontender, bowel sounds positive, no peritonitis. EXTREMITIES: No cyanosis or edema, full range of motion of all the joints without pain or difficulty, no signs for acute trauma. NEUROLOGIC: Oriented x 3, no acute motor or sensory deficits, no focal weakness. SKIN: No rash, no jaundice, no diaphoresis. Pale. DIFFERENTIAL DIAGNOSIS: Pneumonia, RSV, COVID-19, influenza, anemia, cardiac ischemia, bronchitis, fluid overload, among others. EMERGENCY DEPARTMENT COURSE/PROCEDURES: Prior/Outside records reviewed: EMS records. MEDICAL DECISION MAKING: There is no leukocytosis, in fact, the white count is slightly low. The patient is anemic however, this appears baseline. There is a normal platelet count. Sodium mildly low at 133 but not in need of emergent correction. No renal failure. No worrisome liver enzyme elevation. Cardiac enzyme testing x1 is slightly elevated, I suspect this is secondary to her hypoxia as she has had no reports of chest pain. COVID test returned positive. Influenza and RSV test returned negative. Chest film shows what appears to be a left lower lung pneumonia per my review. No pneumothorax. The patient presents with flulike symptoms. She was found to have COVID-19 as well as a pneumonia. The pneumonia may be a secondary infection with the COVID infection starting first. The patient initially refused antibiotics. I spoke with her and her family. She did consent to the use of cefepime, this was ordered. She did receive IV saline, 500 cc as a bolus. She received IV Zofran for nausea. She was given a DuoNeb. The patient presents hypoxic. She has required O2 supplementation. She is in need of a hospital stay and further care. I did speak with the patient about all her findings, I spoke with case management, the on-call hospitalist was consulted. DISPOSITION: Given the patient's findings and hypoxia, hospitalization was warranted. 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 quit smoking in 1984; Second Hand Exposure: No; Tobacco Cessation Education Requested by Patient: No Hx Alcohol Use: No Hx Substance Use: No Preferred Language: Qatari Communication Ability: Effective Manager Mobile Required: No Beliefs That Will Affect Care: Latter-Day Latter-Day Beliefs: Mosque, last rites Current Living Situation: Other Current Living Situation Comment: Lives 02/01 caregivers Feels Safe at Home: Yes Safety Concerns: Feels Safe At This Time Dental Care, Regularly: No Seatbelt Use: always Sunscreen Use: No Assistive Devices: Glasses, Walker and Wheelchair Assistive Devices Comment: Motor wheelchair at home Allergies Allergies Allergy/AdvReac Type Severity Reaction Status Date / Time No Known Allergies Allergy Verified 11/01/21 10:41 Home Meds Home Medications Medication Instructions Recorded Confirmed hyoscyamine sulfate 0.125 mg tablet 0.125 mg PO QID PRN Abdominal Pain 01/09/20 07/18/22 dnscqgri-guy-cepce ac 400 1 tab PO DAILY 01/09/20 07/18/22 mcg-calcium carb 500 mg-vit K1 20 mcg tablet (Women's 50 Plus Multivitamin) vitamins A,C,U-dyle-mubmxk 2,148 1 tab PO DAILY 01/09/20 07/18/22 mcg-113 mg-45 mg-17.4 mg tablet (PreserVision AREDS) cholecalciferol (vitamin D3) 50 50 mcg PO DAILY 03/04/21 07/18/22 mcg (2,000 unit) capsule propylene glycol 0.6 % eye drops 1 drp ophthalmic (eye) DAILY 07/18/22 07/18/22 (Systane Balance) zolpidem 5 mg tablet 5 - 7.5 mg PO HS PRN Sleep 07/18/22 07/18/22 Previous Rx's Medication Instructions Recorded acetaminophen 500 mg tablet 500 mg PO Q6H PRN fever #30 tabs 01/29/20 (Tylenol Extra Strength) acetaminophen 650 mg 650 mg PO Q8H PRN pain #30 tabs 01/29/20 tablet,extended release (Tylenol 8 Hour) bismuth subsalicylate 262 mg 2 tab PO Q1H PRN diarrhea #30 tabs 01/29/20 tablet (Pepto-Bismol) loperamide 2 mg tablet (Imodium 2 mg PO Q6H PRN loose stool #30 01/29/20 A-D) tabs simethicone 125 mg capsule (Gas 125 mg PO DAILY PRN abdominal 01/29/20 Relief (simethicone)) distention #30 caps mecobalamin (vitamin B12) 1,000 1,000 mcg PO DAILY #30 tabs 06/07/21 mcg chewable tablet diltiazem HCl 120 mg 120 mg PO DAILY #90 caps 03/23/22 capsule,extended release 24 hr lisinopril 20 mg tablet 20 mg PO DAILY #90 tabs 03/23/22 tramadol 50 mg tablet See Rx Instructions PO BID PRN 07/11/22 Pain #90 tabs prochlorperazine maleate 5 mg 5 mg PO QID PRN nausea and 07/15/22 tablet vomiting #30 tabs fentanyl 25 mcg/hr transdermal 1 patch transdermal Q72H 30 days 07/18/22 patch #10 ea Results & Data (ED) Vital Signs Vital Signs - 24 hr 07/18/22 19:00 07/18/22 20:00 07/18/22 20:01 Temperature 37 C Temperature Source Oral Pulse Rate 71 Pulse Rate from SpO2 Sensor Respiratory Rate 17 Respiratory Effort / Characteristics Non-Labored Spontaneous Respiratory Depth Normal Respiratory Pattern Regular Blood Pressure 166/76 H Blood Pressure Mean 106 Blood Pressure Position Lying Pulse Oximetry 92 89 L 89 L Oxygen Delivery Method Room Air Room Air Nasal Cannula Oxygen Flow Rate 2 Sepsis Recent Fever Within 48 Hours Yes Sepsis New/Unexplained Change in Mental Status N/A Sepsis Action Taken by Nursing No Action Required Pulse Oximetry Post Tiitration 96 07/18/22 19:30 07/18/22 20:00 Temperature Temperature Source Pulse Rate 66 69 Pulse Rate from SpO2 Sensor 67 Respiratory Rate 16 19 Respiratory Effort / Characteristics Respiratory Depth Respiratory Pattern Blood Pressure 151/75 H 159/70 H Blood Pressure Mean 100 99 Blood Pressure Position Pulse Oximetry 91 89 L Oxygen Delivery Method Room Air Room Air Oxygen Flow Rate Sepsis Recent Fever Within 48 Hours Sepsis New/Unexplained Change in Mental Status Sepsis Action Taken by Nursing Pulse Oximetry Post Tiitration Home Medications Current Medication List: was personally reviewed by me Laboratory Data Attestation: I reviewed the patient's lab results. 07/19/22 05:30 07/19/22 05:30 Lab Results 07/18/22 07/18/22 07/18/22 Range/Units 20:00 20:00 20:00 WBC 4.36 L (4.8-10.8) K/ul RBC 3.53 L (4.20-5.40) M/uL Hgb 10.6 L (12.0-16.0) g/dl Hct 32.2 L (37.0-47.0) % MCV 91.2 (80.0-100.0) fL MCH 30.0 (25.0-34.0) pg MCHC 32.9 (32.0-36.0) g/dL RDW Std Deviation 43.9 (36.4-46.3) fL RDW Coeff of Bear 13.2 (11.5-14.5) % Plt Count 150 (130-400) K/uL MPV 12.2 (9.4-12.4) fL Immature Gran % (Auto) 0.2 % Neut % (Auto) 68.1 % Lymph % (Auto) 19.3 % Gibson % (Auto) 11.7 % Eos % (Auto) 0.5 % Baso % (Auto) 0.2 % Neut # (Auto) 2.97 (1.40-6.50) K/uL Lymph # (Auto) 0.84 L (1.2-3.4) K/uL Gibson # (Auto) 0.51 (0.11-0.59) K/uL Eos # (Auto) 0.02 (0-0.50) K/uL Baso # (Auto) 0.01 (0-0.2) K/uL Immature Gran # (Auto) 0.01 (0.01-0.20) K/uL Sodium 133 L (136-145) mmol/L Potassium 4.5 (3.5-5.1) mmol/L Chloride 102 (98-107) mmol/L Carbon Dioxide 25 (21-32) mmol/L Anion Gap 6 (3-11) BUN 18 (6-23) mg/dl Creatinine 0.95 (0.6-1.2) mg/dl Est Cr Clr Drug Dosing 49.0 ml/min Est GFR ( Amer) 62.9 ml/min Est GFR (Non-Af Amer) 54.2 ml/min BUN/Creatinine Ratio 18.9 (10-20) Glucose 96 (70-99(Fasting)) mg/dl Lactate 0.7 (0.4-2.0) mmol/L Calcium 8.8 (8.5-10.1) mg/dl Magnesium 2.1 (1.7-2.4) mg/dl Total Bilirubin 0.5 (0.2-1.0) mg/dl Direct Bilirubin 0.1 (0-0.2) mg/dl AST 28 (13-39) U/L ALT 15 (7-52) U/L Alkaline Phosphatase 68 (34-104) U/L Troponin I High Sens 21.2 H (0-14) pg/ml Total Protein 7.1 (6.0-8.3) gm/dl Albumin 3.4 (3.4-5.0) gm/dl Procalcitonin (0-0.5) ng/ml SARS-CoV-2 (PCR) (Negative) Influenza Type A (PCR) (Neg) Influenza Type B (PCR) (Neg) RSV (RT-PCR) (Neg) 07/18/22 07/18/22 Range/Units 20:00 20:21 WBC (4.8-10.8) K/ul RBC (4.20-5.40) M/uL Hgb (12.0-16.0) g/dl Hct (37.0-47.0) % MCV (80.0-100.0) fL MCH (25.0-34.0) pg MCHC (32.0-36.0) g/dL RDW Std Deviation (36.4-46.3) fL RDW Coeff of Bear (11.5-14.5) % Plt Count (130-400) K/uL MPV (9.4-12.4) fL Immature Gran % (Auto) % Neut % (Auto) % Lymph % (Auto) % Gibson % (Auto) % Eos % (Auto) % Baso % (Auto) % Neut # (Auto) (1.40-6.50) K/uL Lymph # (Auto) (1.2-3.4) K/uL Gibson # (Auto) (0.11-0.59) K/uL Eos # (Auto) (0-0.50) K/uL Baso # (Auto) (0-0.2) K/uL Immature Gran # (Auto) (0.01-0.20) K/uL Sodium (136-145) mmol/L Potassium (3.5-5.1) mmol/L Chloride (98-107) mmol/L Carbon Dioxide (21-32) mmol/L Anion Gap (3-11) BUN (6-23) mg/dl Creatinine (0.6-1.2) mg/dl Est Cr Clr Drug Dosing ml/min Est GFR ( Amer) ml/min Est GFR (Non-Af Amer) ml/min BUN/Creatinine Ratio (10-20) Glucose (70-99(Fasting)) mg/dl Lactate (0.4-2.0) mmol/L Calcium (8.5-10.1) mg/dl Magnesium (1.7-2.4) mg/dl Total Bilirubin (0.2-1.0) mg/dl Direct Bilirubin (0-0.2) mg/dl AST (13-39) U/L ALT (7-52) U/L Alkaline Phosphatase (34-104) U/L Troponin I High Sens (0-14) pg/ml Total Protein (6.0-8.3) gm/dl Albumin (3.4-5.0) gm/dl Procalcitonin 0.05 (0-0.5) ng/ml SARS-CoV-2 (PCR) POSITIVE A* (Negative) Influenza Type A (PCR) Negative (Neg) Influenza Type B (PCR) Negative (Neg) RSV (RT-PCR) Negative (Neg) Administered Medications Diltiazem HCl (Diltiazem Hcl 120 Mg Capcr) 120 mg PO DAILY [facility] Stop: 08/18/22 08:59 Last Admin: 07/19/22 08:15 Dose: 120 mg Documented By: COURTNEY Enoxaparin Sodium (Enoxaparin Inj 40 Mg/0.4 Ml Syr) 40 mg SQ Q24H [facility] Stop: 08/18/22 08:59 Last Admin: 07/19/22 08:15 Dose: 40 mg Documented By: COURTNEY Cefepime HCl 2,000 mg/ Syringe 20 mls @ 5 mls/min IV Q12H [facility]; Protocol Stop: 07/26/22 09:59 Last Admin: 07/19/22 09:29 Dose: 5 mls/min Documented By: COURTNEY Lisinopril (Lisinopril 20 Mg Tab) 20 mg PO DAILY [facility] Stop: 08/18/22 08:59 Last Admin: 07/19/22 08:16 Dose: 20 mg Documented By: COURTNEY Miscellaneous (Check Fentanyl Patch Placement) 1 each N/A QS [facility] Stop: 08/18/22 00:00 Last Admin: 07/19/22 08:16 Dose: 1 each Documented By: Admin: 07/19/22 00:01 Dose: 1 each Documented By: RUSLAN Prochlorperazine (Prochlorperazine Maleate 5 Mg Tab) 5 mg PO QID PRN PRN Reason: nausea and vomiting Stop: 08/17/22 23:50 Last Admin: 07/19/22 09:29 Dose: 5 mg Documented By: Admin: 07/19/22 00:57 Dose: 5 mg Documented By: RUSLAN Tramadol HCl (Tramadol Hcl 50 Mg Tablet) 50 mg PO BID PRN PRN Reason: Pain Stop: 08/17/22 23:50 Last Admin: 07/19/22 00:54 Dose: 50 mg Documented By: RUSLAN Zolpidem Tartrate (Zolpidem Tartrate 5 Mg Tab) 5 mg PO HS PRN PRN Reason: Sleep Stop: 08/17/22 23:50 Last Admin: 07/19/22 00:55 Dose: 5 mg Documented By: RUSLAN Discontinued Medications Albuterol (Albut/Ipratrop 3mg/0.5mg Neb 3 Ml Vial) 3 ml NEB NOW STA; Protocol Stop: 07/18/22 21:36 Last Admin: 07/18/22 22:04 Dose: 3 ml Documented By: AIDEN Fentanyl (Fentanyl 25 Mcg/Hr Tdsy) 25 mcg TD Q3D@0900 [facility] Stop: 08/02/22 08:59 Last Admin: 07/19/22 08:19 Dose: Not Given Documented By: COURTNEY Sodium Chloride (Nss 1000ml) 500 mls @ 999 mls/hr IV .Q31M [facility] Stop: 07/18/22 20:30 Last Infusion: 07/18/22 22:17 Dose: 0 mls/hr Documented By: Admin: 07/18/22 20:30 Dose: 999 mls/hr Documented By: AIDEN Cefepime HCl (Maxipime) 2,000 mg in 20 mls @ 5 mls/min IV NOW STA; Protocol Stop: 07/18/22 20:01 Last Admin: 07/18/22 20:36 Dose: Not Given Documented By: AIDEN Cefepime HCl (Maxipime) 2,000 mg in 20 mls @ 5 mls/min IV NOW STA; Protocol Stop: 07/18/22 21:38 Last Admin: 07/18/22 22:04 Dose: 5 mls/min Documented By: AIDEN Sodium Chloride (Nss 1000ml) 1,000 mls @ 80 mls/hr IV .[id number] [facility] Stop: 07/19/22 12:20 Last Infusion: 07/19/22 11:55 Dose: 0 mls/hr Documented By: Admin: 07/19/22 00:03 Dose: 80 mls/hr Documented By: RUSLAN Miscellaneous (Fentanyl Patch Remove & Waste) 1 each N/A Q3D [facility] Stop: 08/17/22 23:50 Last Admin: 07/19/22 00:00 Dose: Not Given Documented By: RUSLAN Miscellaneous (Fentanyl Patch Remove & Waste) 1 each N/A Q3D@0859 [facility] Stop: 08/18/22 08:58 Last Admin: 07/19/22 08:19 Dose: Not Given Documented By: COURTNEY Ondansetron HCl (Ondansetron Inj 2 Mg/Ml 2 Ml Vial) 4 mg IV NOW STA Stop: 07/18/22 19:59 Last Admin: 07/18/22 20:36 Dose: Not Given Documented By: AIDEN Ondansetron HCl (Ondansetron Inj 2 Mg/Ml 2 Ml Vial) 4 mg IV NOW STA Stop: 07/18/22 21:36 Last Admin: 07/18/22 22:05 Dose: 4 mg Documented By: AIDEN Imaging Data Attestation: I personally reviewed and interpreted this imaging study as follows: My Impression: Chest x-ray: As per my review there appears to be a left lower lung pneumonia. No pneumothorax. Discharge Plan Visit Data Chief Complaint: Illness ED Provider: Cristian Kinney Discharge Problem: Hypoxia, Pneumonia, Flu-like symptoms, COVID-19 Patient Disposition: Admitted As Inpatient Condition: Fair Discharge Instructions Interventions: ED Discharge Assessment Last Done: 07/18/22 23:31
[2022-07-18] MEDS: ONDANSETRON INJ 2 MG/ML 2 ML VIAL IV STA ×2 (20:30→20:36)
[2022-07-18 20:33] LABS: Basophils # (auto) 0.01 K/uL (0-0.2); Basophils % (auto) 0.2 %; Eosinophils # (auto) 0.02 K/uL (0-0.50); Eosinophils % (auto) 0.5 %; Hematocrit (blood only) 32.2 % (37.0-47.0); Hemoglobin 10.6 g/dl (12.0-16.0); Immature Granulocytes # (auto) 0.01 K/uL (0.01-0.20); Immature Granulocytes % (auto) 0.2 %; Lymphocytes # (auto) 0.84 K/uL (1.2-3.4); Lymphocytes % (auto) 19.3 %; Mean Corpuscular Hgb Conc 32.9 g/dL (32.0-36.0); Mean Corpuscular Volume 91.2 fL (80.0-100.0); Mean Platelet Volume 12.2 fL (9.4-12.4); Monocytes # (auto) 0.51 K/uL (0.11-0.59); Monocytes % (auto) 11.7 %; Neutrophils # (auto) 2.97 K/uL (1.40-6.50); Neutrophils % (auto) 68.1 %; Platelet Count 150 K/uL (130-400); RDW Coefficient of Variation 13.2 % (11.5-14.5); RDW Standard Deviation 43.9 fL (36.4-46.3); Red Blood Count 3.53 M/uL (4.20-5.40); White Blood Count 4.36 K/ul (4.8-10.8)
[2022-07-18 20:49] LABS: Albumin Level 3.4 gm/dl (3.4-5.0); BUN Creatinine Ratio 18.9 (10-20); Bilirubin Direct 0.1 mg/dl (0-0.2); Bilirubin,Total 0.5 mg/dl (0.2-1.0); Calcium 8.8 mg/dl (8.5-10.1); Est GFR (African American) 62.9 ml/min; Est GFR (Non-African American) 54.2 ml/min; Magnesium 2.1 mg/dl (1.7-2.4); Potassium 4.5 mmol/L (3.5-5.1); Total Protein 7.1 gm/dl (6.0-8.3)
[2022-07-18 20:55] LABS: Troponin I High Sensitivity 21.2 pg/ml (0-14)
--- NOTE | 2022-07-18 21:06 | XRay Report ---
XR chest 1V portable CLINICAL HISTORY: Sepsis. COMPARISON STUDY: Chest CT January 09, 2020. FINDINGS: There is no pneumothorax. There are possible trace left pleural effusion. Lower lung airspa ce opacity is noted, including a nodular density. Right midlung nodular density is present. There is moderate cardiomegaly. Pulmonary vascular congestion is present. No lobar consolidation is noted. IMPRESSION: 1. Cardiomegaly with pulmonary vascular congestion. Possible trace left pleural effusion. 2. Left lower lung airspace opacity. This could reflect pneumonia or atelectasis. 3. Nodular density within the left lower lung which likely reflects the suspicious pulmonary nodule o n prior abdominal CT of January 21, 2020. Possible nodular density within the right midlung. ACT 112: Negative or not required by law. Electronically signed by: Bharathi Garcia M.D. 07/18/2022 9:03 PM
[2022-07-18 21:08] LABS: Influenza A virus by PCR Negative (Neg); Influenza B virus by PCR Negative (Neg); RSV by PCR Negative (Neg)
[2022-07-18 21:10] LABS: SARS CoV2 RNA(COVID-19) Ceph POSITIVE (Negative)
[2022-07-18] MEDS ORDERED: ONDANSETRON INJ 2 MG/ML 2 ML VIAL IV STA (21:35)
[2022-07-18] MEDS ORDERED: ALBUT/IPRATROP 3MG/0.5MG NEB 3 ML VIAL NEB STA (21:35)
--- NOTE | 2022-07-18 22:57 | History & Physical Report ---
Date of Service July 18, 2022 Assessment & Plan (1) COVID-19: Plan: 86-year-old female presenting with COVID-19 infection, hypoxic on arrival at 89% on room air. Patient with no pre-existing lung conditions, does not use supplemental oxygen at home. She is a former smoker however, quit many years ago. Just not have COPD or asthma that she knows of. Patient is unvaccinated against COVID. Patient refuses treatment with dexamethasone at this time. She reports that she has been on steroids in the past and it made her "very sick". She states that she will not take dexamethasone no matter what. She does not wish to take medications as she frequently has adverse reactions and side effects. Administration of remdesivir not discussed. Continue supplemental oxygen Close monitoring of respiratory status Maintain isolation precautions Lovenox for DVT prophylaxis (2) Pneumonia: Plan: Possible left lower lobe pneumonia. Patient refuses any other antibiotic aside from the one she was administered in the ER (cefepime) Continue cefepime 2 g IV every 8 (3) Fibromyalgia: Plan: Chronic. Stable. Continue tramadol Continue home fentanyl patches (4) Atrial fibrillation: Plan: Rate controlled. No anticoagulation Continue diltiazem Monitor History of Present Illness Chief Complaint: "Feeling miserable" Primary Care Provider: Eden Proctor MD Florence Starks is an 86-year-old female with history of atrial fibrillation, chronic pain, fibromyalgia and IBS presenting with COVID-19 infection, initial hypoxia. Family is at bedside and assists with history. Patient has been ill for the last week and a half. Her symptoms initially began as chills and progressed to low-grade fever and dry cough as well as headache, fatigue and body aches. Her symptoms did improve for approximately 2 days and she was without fever. However, today her fever went up again and her cough got acutely worse and productive for thick, brown sputum. She also reports some mild chest discomfort with deep breathing. Patient is not vaccinated against COVID. She is uncertain if she has had COVID before. Upon arrival she is afebrile, hemodynamically stable, saturating 89% on room air. She was placed on supplemental oxygen with improvement. ER course: Normal saline 500 mL Albuterol 3 mL neb Cefepime 2 g Zofran 4 mg IV Tramadol 50 mg Ambien 5 mg Prochlorperazine 5 mg Allergies Allergy/AdvReac Type Severity Reaction Status Date / Time No Known Allergies Allergy Verified 11/01/21 10:41 Home Medications Medication Instructions Recorded Confirmed Type hyoscyamine sulfate 0.125 mg tablet 0.125 mg PO QID PRN Abdominal Pain 01/09/20 07/18/22 History xdugnkqw-kzu-bemfq ac 400 1 tab PO DAILY 01/09/20 07/18/22 History mcg-calcium carb 500 mg-vit K1 20 mcg tablet (Women's 50 Plus Multivitamin) vitamins A,C,X-sbzu-opangv 2,148 1 tab PO DAILY 01/09/20 07/18/22 History mcg-113 mg-45 mg-17.4 mg tablet (PreserVision AREDS) acetaminophen 500 mg tablet 500 mg PO Q6H PRN fever #30 tabs 01/29/20 07/18/22 Rx (Tylenol Extra Strength) acetaminophen 650 mg 650 mg PO Q8H PRN pain #30 tabs 01/29/20 07/18/22 Rx tablet,extended release (Tylenol 8 Hour) bismuth subsalicylate 262 mg 2 tab PO Q1H PRN diarrhea #30 tabs 01/29/20 07/18/22 Rx tablet (Pepto-Bismol) loperamide 2 mg tablet (Imodium 2 mg PO Q6H PRN loose stool #30 01/29/20 07/18/22 Rx A-D) tabs simethicone 125 mg capsule (Gas 125 mg PO DAILY PRN abdominal 01/29/20 07/18/22 Rx Relief (simethicone)) distention #30 caps cholecalciferol (vitamin D3) 50 50 mcg PO DAILY 03/04/21 07/18/22 History mcg (2,000 unit) capsule mecobalamin (vitamin B12) 1,000 1,000 mcg PO DAILY #30 tabs 06/07/21 07/18/22 Rx mcg chewable tablet diltiazem HCl 120 mg 120 mg PO DAILY #90 caps 03/23/22 07/18/22 Rx capsule,extended release 24 hr lisinopril 20 mg tablet 20 mg PO DAILY #90 tabs 03/23/22 07/18/22 Rx tramadol 50 mg tablet See Rx Instructions PO BID PRN 07/11/22 07/18/22 Rx Pain #90 tabs prochlorperazine maleate 5 mg 5 mg PO QID PRN nausea and 07/15/22 07/18/22 Rx tablet vomiting #30 tabs fentanyl 25 mcg/hr transdermal 1 patch transdermal Q72H 30 days 07/18/22 07/18/22 Rx patch #10 ea propylene glycol 0.6 % eye drops 1 drp ophthalmic (eye) DAILY 07/18/22 07/18/22 History (Systane Balance) zolpidem 5 mg tablet 5 - 7.5 mg PO HS PRN Sleep 07/18/22 07/18/22 History Past Med/Surg History Medical History Atrial fibrillation Chronic osteoarthritis Chronic pain Colitis 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 Dysphagia Fibromyalgia IBS (irritable bowel syndrome) Impaired mobility and ADLs Insomnia SDH (subdural hematoma) Swelling of both ankles Surgical History S/P appendectomy S/P cholecystectomy S/P hysterectomy S/P tonsillectomy Family History Mother Stroke Sister Stroke Brother Cancer Bladder Cancer Denies family history of Ovarian cancer Prostate cancer Myocardial infarction Breast cancer Colorectal cancer Social History Smoking Status: Former smoker Tobacco Type: Cigarettes Age Started Using Tobacco: 14; Age Quit Using Tobacco: 59; Cigarettes Per Day: 3 packs per week; Hx Alcohol Use: No Hx Substance Use: No Preferred Language: Arabic Communication Ability: Effective Full Stack Engineer Required: No Beliefs That Will Affect Care: Christianity Christianity Beliefs: Religious, last rites Current Living Situation: Family Current Living Situation Comment: Lives w/granddaughter and great grandchildren Feels Safe at Home: Yes Dental Care, Regularly: No Seatbelt Use: always Sunscreen Use: No Assistive Devices: Walker Review of Systems Review of Systems: All systems reviewed & are unremarkable except as noted in HPI & below Physical Exam Physical Exam: General: patient appears ill and fatigued, nontoxic, able to answer questions and follow commands Skin: warm, dry, intact, no rashes or lesions HEENT: NC/AT, PERRL, EOMI, anicteric sclera, conjunctiva without injection, external ear normal to inspection and nontender, nares patent, dry mucus membranes, dentition intact, no oropharyngeal lesions, neck supple, trachea midline, no LAD, no thyromegaly, no JVD Heart: +S1/S2, irregularly irregular, no m/r/g Lungs: equal air entry bilaterally, crackles present in mid lung field and base on the left, no rhonchi/wheezes Abd: +BS, soft, NT/ND, no masses/organomegaly/ascites Ext: warm, 2+ pulses in UE/LE bilaterally, no clubbing/cyanosis or edema Neuro: nonfocal, patient AA&O x 4, speech intact, no facial droop, moving all extremities on command with equal strength 5/5 Results & Data Results & Data ([facility]) Vital Signs (Past 12 Hours) Vital Signs Temp Pulse Resp BP Pulse Ox O2 Del Method O2 Flow Rate 07/18/22 20:00 69 19 159/70 H 89 L Room Air 07/18/22 19:30 66 16 151/75 H 91 Room Air 07/18/22 20:01 89 L Nasal Cannula 2 07/18/22 20:00 89 L Room Air 07/18/22 19:00 37 C 71 17 166/76 H 92 Room Air Laboratory Results Laboratory Results WBC 4.36 K/ul (4.8-10.8) L 07/18/22 20:00 RBC 3.53 M/uL (4.20-5.40) L 07/18/22 20:00 Hgb 10.6 g/dl (12.0-16.0) L 07/18/22 20:00 Hct 32.2 % (37.0-47.0) L 07/18/22 20:00 MCV 91.2 fL (80.0-100.0) 07/18/22 20:00 MCH 30.0 pg (25.0-34.0) 07/18/22 20:00 MCHC 32.9 g/dL (32.0-36.0) 07/18/22 20:00 RDW Std Deviation 43.9 fL (36.4-46.3) 07/18/22 20:00 RDW Coeff of Bear 13.2 % (11.5-14.5) 07/18/22 20:00 Plt Count 150 K/uL (130-400) 07/18/22 20:00 MPV 12.2 fL (9.4-12.4) 07/18/22 20:00 Immature Gran % (Auto) 0.2 % 07/18/22 20:00 Neut % (Auto) 68.1 % 07/18/22 20:00 Lymph % (Auto) 19.3 % 07/18/22 20:00 [place] % (Auto) 11.7 % 07/18/22 20:00 Eos % (Auto) 0.5 % 07/18/22 20:00 Baso % (Auto) 0.2 % 07/18/22 20:00 Neut # (Auto) 2.97 K/uL (1.40-6.50) 07/18/22 20:00 Lymph # (Auto) 0.84 K/uL (1.2-3.4) L 07/18/22 20:00 [place] # (Auto) 0.51 K/uL (0.11-0.59) 07/18/22 20:00 Eos # (Auto) 0.02 K/uL (0-0.50) 07/18/22 20:00 Baso # (Auto) 0.01 K/uL (0-0.2) 07/18/22 20:00 Immature Gran # (Auto) 0.01 K/uL (0.01-0.20) 07/18/22 20:00 Sodium 133 mmol/L (136-145) L 07/18/22 20:00 Potassium 4.5 mmol/L (3.5-5.1) 07/18/22 20:00 Chloride 102 mmol/L (98-107) 07/18/22 20:00 Carbon Dioxide 25 mmol/L (21-32) 07/18/22 20:00 Anion Gap 6 (3-11) 07/18/22 20:00 BUN 18 mg/dl (6-23) 07/18/22 20:00 Creatinine 0.95 mg/dl (0.6-1.2) 07/18/22 20:00 Est Cr Clr Drug Dosing 49.0 ml/min 07/18/22 20:00 Est GFR ( Amer) 62.9 ml/min 07/18/22 20:00 Est GFR (Non-Af Amer) 54.2 ml/min 07/18/22 20:00 BUN/Creatinine Ratio 18.9 (10-20) 07/18/22 20:00 Glucose 96 mg/dl (70-99(Fasting)) 07/18/22 20:00 Lactate 0.7 mmol/L (0.4-2.0) 07/18/22 20:00 Calcium 8.8 mg/dl (8.5-10.1) 07/18/22 20:00 Magnesium 2.1 mg/dl (1.7-2.4) 07/18/22 20:00 Total Bilirubin 0.5 mg/dl (0.2-1.0) 07/18/22 20:00 Direct Bilirubin 0.1 mg/dl (0-0.2) 07/18/22 20:00 AST 28 U/L (13-39) 07/18/22 20:00 ALT 15 U/L (7-52) 07/18/22 20:00 Alkaline Phosphatase 68 U/L (34-104) 07/18/22 20:00 Troponin I High Sens 21.2 pg/ml (0-14) H 07/18/22 20:00 Total Protein 7.1 gm/dl (6.0-8.3) 07/18/22 20:00 Albumin 3.4 gm/dl (3.4-5.0) 07/18/22 20:00 Procalcitonin 0.05 ng/ml (0-0.5) 07/18/22 20:00 SARS-CoV-2 (PCR) POSITIVE (Negative) A* 07/18/22 20:21 Influenza Type A (PCR) Negative (Neg) 07/18/22 20:21 Influenza Type B (PCR) Negative (Neg) 07/18/22 20:21 RSV (RT-PCR) Negative (Neg) 07/18/22 20:21 Impressions Chest X-Ray 07/18/22 19:59 XR chest 1V portable CLINICAL HISTORY: Sepsis. COMPARISON STUDY: Chest CT January 09, 2020. FINDINGS: There is no pneumothorax. There are possible trace left pleural effusion. Lower lung airspace opacity is noted, including a nodular density. Right midlung nodular density is present. There is moderate cardiomegaly. Pulmonary vascular congestion is present. No lobar consolidation is noted. IMPRESSION: 1. Cardiomegaly with pulmonary vascular congestion. Possible trace left pleural effusion. 2. Left lower lung airspace opacity. This could reflect pneumonia or atelectas is. 3. Nodular density within the left lower lung which likely reflects the suspicious pulmonary nodule on prior abdominal CT of January 21, 2020. Possible nodular density within the right midlung. ACT 112: Negative or not required by law. Electronically signed by: Bharathi Garcia M.D. 07/18/2022 9:03 PM Code Status & VTE Plan VTE Prophylaxis Plan VTE Prophylaxis will be ordered: Yes PG Care Time/CCT Total # of Minutes Spent Total Time Spent with Patient: Total time spent is greater than 50% in coordination of care (as documented) at patient's floor/unit and/or counseling patient: Coding Level of Care Code 96764 INT INP/OBS CARE 2/55MIN Diagnoses COVID-19 U07.1 Pneumonia J18.9 Fibromyalgia M79.7 Atrial fibrillation I48.91
[2022-07-18] MEDS ORDERED: SODIUM CHLORIDE 0.9% 1000ML 1,000 ML IV SCH (23:51)
[2022-07-18] MEDS ORDERED: HYOSCYAMINE SULFATE 0.125 MG TAB PO PRN (23:51)
[2022-07-18] MEDS ORDERED: DOCUSATE SODIUM 100 MG CAP PO PRN (23:51)
[2022-07-19] MEDS: CHECK fentaNYL PATCH PLACEMENT SCH ×4 (00:01→23:22)
[2022-07-19] MEDS: traMADol HCL 50 MG TABLET PO PRN (00:54)
[2022-07-19] MEDS: ZOLPIDEM TARTRATE 5 MG TAB PO PRN ×2 (00:55→23:03)
[2022-07-19] MEDS: PROCHLORPERAZINE MALEATE 5 MG TAB PO PRN ×3 (00:57→23:03)
[2022-07-19 06:16] LABS: Hematocrit (blood only) 28.3 % (37.0-47.0); Hemoglobin 9.3 g/dl (12.0-16.0); Mean Corpuscular Hemoglobin 29.9 pg (25.0-34.0); Mean Corpuscular Hgb Conc 32.9 g/dL (32.0-36.0); Mean Platelet Volume 12.2 fL (9.4-12.4); Platelet Count 126 K/uL (130-400); RDW Coefficient of Variation 13.2 % (11.5-14.5); RDW Standard Deviation 43.6 fL (36.4-46.3); Red Blood Count 3.11 M/uL (4.20-5.40); White Blood Count 3.48 K/ul (4.8-10.8)
[2022-07-19 06:30] LABS: BUN Creatinine Ratio 19.3 (10-20); Calcium 8.3 mg/dl (8.5-10.1); Creatinine Clr Calc Pharmacy 55.4 ml/min; Est GFR (Non-African American) 63.9 ml/min; Potassium 4.6 mmol/L (3.5-5.1)
[2022-07-19 07:03] LABS: Appearance Urine Clear (Clear); Bacteria Urine Automated Negative (Negative); Bilirubin Urine Negative (Negative); Blood Urine Negative (Negative); Color Urine Dark Yellow; Epithelial Cell Urine Auto 20-30 /lpf (0-5); Glucose Urine UA Negative (Negative); Ketones Urine 1+ (Negative); Leukocyte Esterase Urine Negative (Negative); Nitrite Urine Negative (Negative); Protein Urine 2+ (Negative); RBC Urine Automated 0-4 /hpf (0-4); Specific Gravity Urine 1.025 (1.000-1.030); Urobilinogen Urine Negative (Negative); pH Urine 5.5 (4.5-7.5)
[2022-07-19] MEDS: dilTIAZem HCL 120 MG CAPCR PO SCH (08:15)
[2022-07-19] MEDS: ENOXAPARIN INJ 40 MG/0.4 ML SYR SQ SCH (08:15)
[2022-07-19] MEDS: lisinopril 20 MG TAB PO SCH (08:16)
[2022-07-19] MEDS ORDERED: fentaNYL 25 MCG/HR TDSY TD SCH (09:00)
[2022-07-19] MEDS: CEFEPIME 2,000 MG in SYRINGE 0 ML IV SCH ×2 (09:29→21:18)
--- NOTE | 2022-07-19 13:43 | Hospitalist Progress Note ---
Date of Service July 19, 2022 Assessment & Plan (1) COVID-19: Plan: 86-year-old female presenting with COVID-19 infection, hypoxic on arrival at 89% on room air. Patient with no pre-existing lung conditions, does not use supplemental oxygen at home. She is a former smoker however, quit many years ago. Just not have COPD or asthma that she knows of. Patient is unvaccinated against COVID. Patient refuses treatment with dexamethasone at this time due to known side effects with steroids in the past remdesivir not indicated due to being outside window of treatment for time course CXR with nodular opacities which could be PNA but nodule on left present in [address] scan Continue supplemental oxygen and wean off as able to Close monitoring of respiratory status Maintain isolation precautions Lovenox for DVT prophylaxis -continue Cefepime and pt declining any other abx coverage for rell of side effects-would ordinarily cover with something for atypicals as well -add flutter valve and continue ICS (2) Pneumonia: Plan: as above recommend repeat Chest CT in 6 weeks to ensure nodules are resolving discussed this with patient and daughter (3) Fibromyalgia: Plan: Chronic. Stable. Continue tramadol Continue home fentanyl patches (4) Atrial fibrillation: Plan: Rate controlled. No anticoagulation Continue diltiazem Monitor (5) Anemia: Plan: chronic, hgb 9-10 check B12, folate, iron studies, TSH in AM Plan DVT proph-Lovenox SQ Dispo-continued stay Discussed care with daughter on phone on 07/19 Admission and Anticipated Discharge Date Admission Date: July 18, 2022 Subjective Pt feeling better, some nausea, no vomiting. No diarrhea or abd pain. No headache. No cough or SOB, no CP. Review of Systems Review of Systems: All systems reviewed & are unremarkable except as noted in HPI & below Physical Exam Constitutional: WD/WN, vitals as above Respiratory: normal respiratory effort, lungs clear to auscultation Cardiovascular: RRR, no murmur, no edema Gastrointestinal (Abdomen): normal bowel sounds, soft, nontender, no hepatosplenomegaly Results & Data Results & Data ([facility]) Vital Signs (Past 12 Hours) Vital Signs Temp Pulse Resp BP Pulse Ox O2 Del Method O2 Flow Rate 07/19/22 08:37 Nasal Cannula 1 07/19/22 08:37 36.8 C 76 18 145/68 H 96 Nasal Cannula 1 07/19/22 06:02 94 Nasal Cannula 1 Laboratory Results CBC and BMP reviewed PG Care Time/CCT Total # of Minutes Spent Total Time Spent with Patient: Total time spent is greater than 50% in coordination of care (as documented) at patient's floor/unit and/or counseling patient: Coding Level of Care Code 46097 SUB INP/OBS CARE 2/35MIN Diagnoses COVID-19 U07.1 Pneumonia J18.9 Fibromyalgia M79.7 Atrial fibrillation I48.91 Anemia D64.9
[2022-07-19] MEDS: fentaNYL 25 MCG/HR TDSY TD SCH (21:17)
[2022-07-20 07:03] LABS: Hematocrit (blood only) 27.8 % (37.0-47.0); Hemoglobin 9.1 g/dl (12.0-16.0); Mean Corpuscular Hemoglobin 29.9 pg (25.0-34.0); Mean Corpuscular Hgb Conc 32.7 g/dL (32.0-36.0); Mean Corpuscular Volume 91.4 fL (80.0-100.0); Mean Platelet Volume 12.1 fL (9.4-12.4); Platelet Count 136 K/uL (130-400); RDW Coefficient of Variation 13.3 % (11.5-14.5); RDW Standard Deviation 44.1 fL (36.4-46.3); Red Blood Count 3.04 M/uL (4.20-5.40)
[2022-07-20] MEDS: CHECK fentaNYL PATCH PLACEMENT SCH ×2 (07:14→15:36)
[2022-07-20 07:17] LABS: BUN Creatinine Ratio 18.6 (10-20); C Reactive Protein 6.26 mg/dl (0-0.5); Calcium 8.9 mg/dl (8.5-10.1); Creatinine Clr Calc Pharmacy 47.4 ml/min; Est GFR (African American) 61.3 ml/min; Est GFR (Non-African American) 52.9 ml/min; Magnesium 2.1 mg/dl (1.7-2.4); Potassium 4.6 mmol/L (3.5-5.1)
[2022-07-20 07:26] LABS: Basophils # (auto) 0.01 K/uL (0-0.2); Basophils % (auto) 0.3 %; Eosinophils # (auto) 0.02 K/uL (0-0.50); Eosinophils % (auto) 0.6 %; Immature Granulocytes # (auto) 0.02 K/uL (0.01-0.20); Immature Granulocytes % (auto) 0.6 %; Lymphocytes # (auto) 0.97 K/uL (1.2-3.4); Lymphocytes % (auto) 27.7 %; Monocytes % (auto) 14.3 %; Neutrophils # (auto) 1.98 K/uL (1.40-6.50); Neutrophils % (auto) 56.5 %
[2022-07-20 07:37] LABS: Ferritin 348.7 ng/ml (8-388)
[2022-07-20 07:42] LABS: Vitamin B12 > 1500 pg/ml (180-914)
[2022-07-20] MEDS: lisinopril 20 MG TAB PO SCH (08:16)
[2022-07-20] MEDS: dilTIAZem HCL 120 MG CAPCR PO SCH (08:16)
[2022-07-20] MEDS: ENOXAPARIN INJ 40 MG/0.4 ML SYR SQ SCH (08:17)
[2022-07-20] MEDS: CEFEPIME 2,000 MG in SYRINGE 0 ML IV SCH ×2 (09:33→21:53)
[2022-07-20] MEDS: PROCHLORPERAZINE MALEATE 5 MG TAB PO PRN ×2 (09:33→20:37)
--- NOTE | 2022-07-20 18:23 | Hospitalist Progress Note ---
Date of Service July 20, 2022 Assessment & Plan (1) COVID-19: Plan: 86-year-old female presenting with COVID-19 infection, hypoxic on arrival at 89% on room air. Patient with no pre-existing lung conditions, does not use supplemental oxygen at home. She is a former smoker however, quit many years ago. Just not have COPD or asthma that she knows of. Patient is unvaccinated against COVID. Patient refuses treatment with dexamethasone at this time due to known side effects with steroids in the past remdesivir not indicated due to being outside window of treatment for time course CXR with nodular opacities which could be PNA but nodule on left present in [address] scan CRP elevated at 6.2 Continue supplemental oxygen and wean off as able to-remains on 1 LNC Close monitoring of respiratory status Maintain isolation precautions Lovenox for DVT prophylaxis -continue Cefepime and pt declining any other abx coverage for fear of side effects-would ordinarily cover with something for atypicals as well -continue flutter valve and continue ICS -check sputum cx -will need 2 step walk test prior to discharge although she really doesn't walk much at all (2) Pneumonia: Plan: as above recommend repeat Chest CT in 6 weeks to ensure nodules are resolving discussed this with patient and daughter (3) Anemia: Plan: chronic, hgb 9-10 Iron deficient on Fe studies with transferrin sat of 10% B12, folate, TSH normal Is a vegetarian, no longer takes Fe supplements as they cause her nausea Has been told she is anemic her entire life -she is hesitant to receive IV iron due to side effects she tends to have with all medications -recommend outpt GI workup as she has not had one (4) Nausea: Plan: Ongoing for the last 1-2 weeks since COVID symptoms started No previous issues with this, no heartburn, weight loss, early satiety, etc. Likely 2/2 COVID declines trial of H2 dave or PPI but is willing to try bicarbonate as she has taken this at home (5) Atrial fibrillation: Plan: Rate controlled. No anticoagulation Continue diltiazem Monitor (6) Fibromyalgia: Plan: Chronic. Stable. Continue tramadol prn Continue home fentanyl patches Plan DVT proph-Lovenox SQ Dispo-continued stay Discussed care with daughter on phone on 07/19 Admission and Anticipated Discharge Date Admission Date: July 18, 2022 Subjective Pt continues to feel nauseated. Is actively eating dinner while she tells me she is nauseated. Does not want to try pepcid or protonix but is willing to try bicarbonate if available. Still coughing up brown sputum. Physical Exam Constitutional: WD/WN, vitals as above Respiratory: normal respiratory effort and + cough Auscultation: + rhonchi (at bases); no crackles and no wheezes Cardiovascular: RRR, no murmur, no edema Gastrointestinal (Abdomen): normal bowel sounds, soft, nontender, no hepatosplenomegaly Skin: no rashes Psychiatric: Orientation: alert, oriented x 3 and cooperative Results & Data Results & Data ([facility]) Vital Signs (Past 12 Hours) Vital Signs Temp Pulse Resp BP BP Pulse Ox O2 Del Method 07/20/22 14:56 36.9 C 63 18 158/79 H 95 Nasal Cannula 07/20/22 07:17 Nasal Cannula 07/20/22 07:12 36.9 C 66 18 135/70 96 Nasal Cannula O2 Flow Rate 07/20/22 14:56 1 07/20/22 07:17 1 07/20/22 07:12 1 Laboratory Results iron studies reviewed CBC, BMP reviewed PG Care Time/CCT Total # of Minutes Spent Total Time Spent with Patient: Total time spent is greater than 50% in coordination of care (as documented) at patient's floor/unit and/or counseling patient: Coding Level of Care Code 35531 SUB INP/OBS CARE 2/35MIN Diagnoses COVID-19 U07.1 Pneumonia J18.9 Anemia D64.9 Nausea R11.0 Atrial fibrillation I48.91 Fibromyalgia M79.7
[2022-07-20] MEDS ORDERED: SODIUM BICARBONATE 650 MG TAB PO PRN (18:33)
[2022-07-20] MEDS: traMADol HCL 50 MG TABLET PO PRN (20:36)
[2022-07-20] MEDS: ZOLPIDEM TARTRATE 5 MG TAB PO PRN (20:37)
[2022-07-21] MEDS: CHECK fentaNYL PATCH PLACEMENT SCH ×4 (00:45→23:11)
[2022-07-21] MEDS: PROCHLORPERAZINE MALEATE 5 MG TAB PO PRN ×2 (08:47→20:36)
[2022-07-21] MEDS: dilTIAZem HCL 120 MG CAPCR PO SCH (08:48)
[2022-07-21] MEDS: ENOXAPARIN INJ 40 MG/0.4 ML SYR SQ SCH (08:48)
[2022-07-21] MEDS: lisinopril 20 MG TAB PO SCH (08:48)
[2022-07-21] MEDS: CEFEPIME 2,000 MG in SYRINGE 0 ML IV SCH ×2 (08:49→22:55)
[2022-07-21] MEDS: ONDANSETRON INJ 2 MG/ML 2 ML VIAL IV PRN (12:49)
--- NOTE | 2022-07-21 16:36 | Hospitalist Progress Note ---
Date of Service July 21, 2022 Assessment & Plan (1) COVID-19: Plan: 86-year-old female presenting with COVID-19 infection, hypoxic on arrival at 89% on room air. Patient with no pre-existing lung conditions, does not use supplemental oxygen at home. She is a former smoker however, quit many years ago. Just not have COPD or asthma that she knows of. Patient is unvaccinated against COVID. Patient refuses treatment with dexamethasone at this time due to known side effects with steroids in the past remdesivir not indicated due to being outside window of treatment for time course CXR with nodular opacities which could be PNA but nodule on left present in [address] scan CRP elevated at 6.2 now weaned off supplemental oxygen and POx great on room air, cough and sputum production much improved, lungs sound clearer SPutum cx pending Maintain isolation precautions Lovenox for DVT prophylaxis -continue Cefepime and convert likely to cefdinir tomorrow but will follow up on Sputum cx. -continue flutter valve and continue ICS-assisted with using them today (2) Pneumonia: Plan: as above recommend repeat Chest CT in 6 weeks to ensure nodules are resolving discussed this with patient and daughter (3) Anemia: Plan: chronic, hgb 9-10 Iron deficient on Fe studies with transferrin sat of 10% B12, folate, TSH normal Is a vegetarian, no longer takes Fe supplements as they cause her nausea Has been told she is anemic her entire life -she is hesitant to receive IV iron due to side effects she tends to have with all medications -recommend outpt GI workup as she has not had one (4) Nausea: Plan: Ongoing for the last 1-2 weeks since COVID symptoms started-improving today, eating all meals No previous issues with this, no heartburn, weight loss, early satiety, etc. Likely 2/2 COVID declines trial of H2 dave or PPI but is willing to try bicarbonate as she has taken this at home may need po ZOfran for discharge (5) Atrial fibrillation: Plan: Rate controlled. No anticoagulation Continue diltiazem Monitor (6) Fibromyalgia: Plan: Chronic. Stable. Continue tramadol prn Continue home fentanyl patches Plan DVT proph-Lovenox SQ Dispo-continued stay but plan to dc to home tomorrow Discussed care with daughter on phone on 07/19 and again on 07/21 Admission and Anticipated Discharge Date Admission Date: July 18, 2022 Anticipated date of discharge: 07/22/22 Subjective Pt feels cough is much improved, less sputum production. Was unaware she was to be using the ICS and flutter valve sitting in front of her on the table. I assisted her with learning how to use them. Is weaned off O2 Physical Exam Constitutional: WD/WN, vitals as above Respiratory: normal respiratory effort and + cough Auscultation: lungs clear to auscultation bilaterally; no crackles, no rhonchi and no wheezes much improved Cardiovascular: RRR, no murmur, no edema Gastrointestinal (Abdomen): normal bowel sounds, soft, nontender, no hepatosplenomegaly Skin: no rashes Psychiatric: Orientation: alert, oriented x 3 and cooperative Results & Data Results & Data ([facility]) Vital Signs (Past 12 Hours) Vital Signs Temp Pulse Resp BP Pulse Ox O2 Del Method O2 Flow Rate 07/21/22 09:00 94 Room Air 07/21/22 08:00 Nasal Cannula 1 07/21/22 08:45 36.9 C 65 16 161/87 H 96 Nasal Cannula 1 PG Care Time/CCT Total # of Minutes Spent Total Time Spent with Patient: Total time spent is greater than 50% in coordination of care (as documented) at patient's floor/unit and/or counseling patient: Coding Level of Care Code 13957 SUB INP/OBS CARE 2/35MIN Diagnoses COVID-19 U07.1 Pneumonia J18.9 Anemia D64.9 Nausea R11.0 Atrial fibrillation I48.91 Fibromyalgia M79.7
[2022-07-21] MEDS: traMADol HCL 50 MG TABLET PO PRN (18:13)
[2022-07-21] MEDS ORDERED: MoRPHine SULFATE 2 MG/ML CARP IV STA (20:09)
[2022-07-21] MEDS ORDERED: ACETAMINOPHEN 325 MG TAB PO PRN (20:09)
[2022-07-21] MEDS: ZOLPIDEM TARTRATE 5 MG TAB PO PRN (20:36)
[2022-07-22] MEDS: CEFEPIME 2,000 MG in SYRINGE 0 ML IV SCH (08:41)
[2022-07-22] MEDS: CHECK fentaNYL PATCH PLACEMENT SCH ×3 (08:41→23:55)
[2022-07-22] MEDS: ENOXAPARIN INJ 40 MG/0.4 ML SYR SQ SCH (08:42)
[2022-07-22] MEDS: dilTIAZem HCL 120 MG CAPCR PO SCH (08:42)
[2022-07-22] MEDS: lisinopril 20 MG TAB PO SCH (08:42)
[2022-07-22 08:51] LABS: Creatinine Clr Calc Pharmacy 53.4 ml/min; Est GFR (African American) 70.9 ml/min; Est GFR (Non-African American) 61.2 ml/min
[2022-07-22] MEDS: PROCHLORPERAZINE MALEATE 5 MG TAB PO PRN ×3 (08:57→21:24)
[2022-07-22] MEDS: ONDANSETRON INJ 2 MG/ML 2 ML VIAL IV PRN (12:35)
[2022-07-22] MEDS: traMADol HCL 50 MG TABLET PO PRN (12:55)
[2022-07-22] MEDS: CEFDINIR 300 MG CAP PO SCH ×2 (14:17→21:24)
--- NOTE | 2022-07-22 16:17 | Discharge Summary ---
Date of Service July 22, 2022 Admission HPI Per Admitting Provider Florence Starks is an 86-year-old female with history of atrial fibrillation, chronic pain, fibromyalgia and IBS presenting with COVID-19 infection, initial hypoxia. Family is at bedside and assists with history. Patient has been ill for the last week and a half. Her symptoms initially began as chills and progressed to low-grade fever and dry cough as well as headache, fatigue and body aches. Her symptoms did improve for approximately 2 days and she was without fever. However, today her fever went up again and her cough got acutely worse and productive for thick, brown sputum. She also reports some mild chest discomfort with deep breathing. Patient is not vaccinated against COVID. She is uncertain if she has had COVID before. Upon arrival she is afebrile, hemodynamically stable, saturating 89% on room air. She was placed on supplemental oxygen with improvement. ER course: Normal saline 500 mL Albuterol 3 mL neb Cefepime 2 g Zofran 4 mg IV Tramadol 50 mg Ambien 5 mg Prochlorperazine 5 mg Discharge Exam Constitutional WD/WN, vitals as above Respiratory normal respiratory effort, lungs clear to auscultation normal respiratory effort and + cough Auscultation: lungs clear to auscultation bilaterally; no crackles, no rhonchi and no wheezes Cardiovascular RRR, no murmur, no edema Gastrointestinal (Abdomen) normal bowel sounds, soft, nontender, no hepatosplenomegaly Skin no rashes Psychiatric Orientation: alert, oriented x 3 and cooperative Discharge Data Allergies Allergy/AdvReac Type Severity Reaction Status Date / Time No Known Allergies Allergy Verified 11/01/21 10:41 Consultations 07/18/22 21:44 ED Decision to Admit Stat Hospital Course (1) COVID-19: 86-year-old female presenting with COVID-19 infection, hypoxic on arrival at 89% on room air. Patient with no pre-existing lung conditions, does not use supplemental oxygen at home. She is a former smoker however, quit many years ago. Just not have COPD or asthma that she knows of. Patient is unvaccinated against COVID. Patient refuses treatment with dexamethasone at this time due to known side effects with steroids in the past remdesivir not indicated due to being outside window of treatment for time course CXR with nodular opacities which could be PNA but nodule on left present in [address] scan CRP elevated at 6.2 now weaned off supplemental oxygen and POx great on room air, cough and sputum production much improved, lungs sound clearer SPutum cx pending Maintain isolation precautions Lovenox for DVT prophylaxis -continue Cefepime and convert likely to cefdinir tomorrow but will follow up on Sputum cx. -continue flutter valve and continue ICS-assisted with using them today (2) Pneumonia: as above recommend repeat Chest CT in 6 weeks to ensure nodules are resolving discussed this with patient and daughter (3) Anemia: chronic, hgb 9-10 Iron deficient on Fe studies with transferrin sat of 10% B12, folate, TSH normal Is a vegetarian, no longer takes Fe supplements as they cause her nausea Has been told she is anemic her entire life -she is hesitant to receive IV iron due to side effects she tends to have with all medications -recommend outpt GI workup as she has not had one (4) Nausea: Ongoing for the last 1-2 weeks since COVID symptoms started-improving today, eating all meals No previous issues with this, no heartburn, weight loss, early satiety, etc. Likely 2/2 COVID declines trial of H2 dave or PPI but is willing to try bicarbonate as she has taken this at home may need po ZOfran for discharge (5) Atrial fibrillation: Rate controlled. No anticoagulation Continue diltiazem Monitor (6) Fibromyalgia: Chronic. Stable. Continue tramadol prn Continue home fentanyl patches Plan DVT proph-Lovenox SQ Dispo-continued stay but plan to dc to home tomorrow Discussed care with daughter on phone on 07/19 and again on 07/21 Discharge Plan Discharge Items Patient Disposition: Home - Self-Care Reason For Visit: COVID-19, HYPOXIA Discharge Diagnosis: COVID-19, Hypoxia, Pneumonia Nausea Condition on Discharge: Fair Activity: Resume your previous activity Non-emergency contact: Primary Care Provider Call non-emergency contact if: you have any medication questions, your symptoms worsen and you have a fever Follow-up/Referrals: Eden Proctor MD [Primary Care Provider] - 07/28/22 10:30 am (APPOINTMENT WITH [facility]) Diet: Regular Addtl Attending Provider Instructions: You can finish out 3 more days of the oral antibiotic for your pneumonia. You can continue to take the compazine and/or the ondansetron as needed for nausea after you go home. You initially were requiring some extra oxygen but now are no longer requiring that as you are improving. You should follow up with your PCP within 1 week as scheduled for you. Your PCP can order you a chest xray to ensure your pneumonia has completely resolved in about 4 weeks. You were found to have iron deficiency anemia while here. Please follow up with your PCP regarding this for further workup of the cause. Pending Studies at Discharge: Yes Studies:: Final blood and sputum cultures-no growth to date Stand-Alone Forms: My [facility] [employer], Smoking Cessation Medications and DC Order Prescriptions: New cefdinir 300 mg Capsule 300 mg PO BID Qty: 5 0RF ondansetron 4 mg tablet,disintegrating 4 mg PO Q8H PRN (Reason: nausea and vomiting) Qty: 14 0RF Continued tramadol 50 mg tablet See Rx Instructions PO BID PRN (Reason: Pain) Qty: 90 0RF Rx Instructions: 1 to 2 tabs PO twice a day As needed. PDMP searched, last filled on 03/24/2020 for 23 day supply, okay to fill prochlorperazine maleate 5 mg tablet 5 mg PO QID PRN (Reason: nausea and vomiting) Qty: 30 2RF fentanyl 25 mcg/hr patch 72 hour 1 patch transdermal Q72H 30 Days Qty: 10 0RF Rx Instructions: PDMP searched, last filled on 05/19/22 for 30 days, okay to fill cholecalciferol (vitamin D3) 50 mcg (2,000 unit) capsule 50 mcg PO DAILY diltiazem HCl 120 mg capsule,extended release 24hr 120 mg PO DAILY Qty: 90 1RF lisinopril 20 mg tablet 20 mg PO DAILY Qty: 90 1RF acetaminophen [Tylenol Extra Strength] 500 mg tablet 500 mg PO Q6H PRN (Reason: fever) Qty: 30 0RF simethicone [Gas Relief (simethicone)] 125 mg capsule 125 mg PO DAILY PRN (Reason: abdominal distention) Qty: 30 0RF Pepto-Bismol 262 mg tablet 2 tab PO Q1H PRN (Reason: diarrhea) Qty: 30 0RF Rx Instructions: do not exceed 16 tabs per 24 hrs loperamide [Imodium A-D] 2 mg tablet 2 mg PO Q6H PRN (Reason: loose stool) Qty: 30 0RF mecobalamin (vitamin B12) 1,000 mcg tablet,chewable 1,000 mcg PO DAILY Qty: 30 0RF PreserVision AREDS [id number] Tablet 1 tab PO DAILY Women's 50 Plus Multivitamin 400 mcg-500 mg calcium-20 mcg Tablet 1 tab PO DAILY hyoscyamine sulfate 0.125 mg Tablet 0.125 mg PO QID PRN (Reason: Abdominal Pain) zolpidem 5 mg tablet 5 - 7.5 mg PO HS PRN (Reason: Sleep) Rx Instructions: 1 to 1.5 tabs PO at bedtime as needed for sleep Systane Balance 0.6 % drops 1 drp ophthalmic (eye) DAILY Discontinued acetaminophen [Tylenol 8 Hour] 650 mg tablet extended release 650 mg PO Q8H PRN (Reason: pain) Qty: 30 0RF Discharge Orders: Discharge Order (Routine); Ordered 07/22/22 Ordered By: Dione Adams Admission Data Admit Date/Time: 07/18/22 22:56 Attending Provider: Dione Adams Admit Provider: Amy Villafana Primary Care Provider: Eden Proctor Other Providers: Amy Villafana Coding Diagnoses COVID-19 U07.1 Pneumonia J18.9 Anemia D64.9 Nausea R11.0 Atrial fibrillation I48.91 Fibromyalgia M79.7
[2022-07-22] MEDS ORDERED: traMADol HCL 50 MG TABLET PO STA (16:37)
--- NOTE | 2022-07-22 17:25 | Hospitalist Progress Note ---
Date of Service July 22, 2022 Assessment & Plan (1) COVID-19: Plan: 86-year-old female presenting with COVID-19 infection, hypoxic on arrival at 89% on room air. Patient with no pre-existing lung conditions, does not use supplemental oxygen at home. She is a former smoker however, quit many years ago. Just not have COPD or asthma that she knows of. Patient is unvaccinated against COVID. Patient refuses treatment with dexamethasone at this time due to known side effects with steroids in the past remdesivir not indicated due to being outside window of treatment for time course CXR with nodular opacities which could be PNA but nodule on left present in [address] scan CRP elevated at 6.2 now weaned off supplemental oxygen and POx great on room air, cough and sputum production much improved, lungs sound clearer SPutum cx heavy normal miguel Maintain isolation precautions Lovenox for DVT prophylaxis -received Cefepime x 4 days and now convert to cefdinir 300mg po bid to finish out 7 day course -continue flutter valve and continue ICS (2) Pneumonia: Plan: as above recommend repeat Chest CT in 6 weeks to ensure nodules are resolving discussed this with patient and daughter (3) Anemia: Plan: chronic, hgb 9-10 Iron deficient on Fe studies with transferrin sat of 10% B12, folate, TSH normal Is a vegetarian, no longer takes Fe supplements as they cause her nausea Has been told she is anemic her entire life -she is hesitant to receive IV iron due to side effects she tends to have with all medications -recommend outpt GI workup as she has not had one (4) Nausea: Plan: Ongoing for the last 1-2 weeks since COVID symptoms started although she is chronically on compazine at home No heartburn, weight loss, early satiety, etc. Likely 2/2 COVID and also pt blames her IBS for this declines trial of H2 dave or PPI but is willing to try bicarbonate as she has taken this at home continue po compazine with meals -continue IV ZOfran and will give po Zofran for discharge -ensure bowels moving -ensure receiving tramadol as pain and tramadol withdrawal may be contributing to her increased nausea (5) Atrial fibrillation: Plan: Rate controlled. Examines in sinus rhythm, No anticoagulation Continue diltiazem Monitor (6) Fibromyalgia: Plan: Chronic. Stable. Continue tramadol prn but increase to qid prn like she takes at home Continue home fentanyl patches Plan DVT proph-Lovenox SQ Dispo-continued stay due to nausea but plan to dc to home tomorrow Discussed care with daughter on phone on 07/19 and again on 07/21 and twice on 07/22 Admission and Anticipated Discharge Date Admission Date: July 18, 2022 Subjective pt was to be discharged today but got very anxious and said her pain all over her body from her FM was worse, that she felt "malaise," and that her nausea was worse today. She was blaming the nurse for not bring her the compazine in a timely fashion before her meals like she takes at home. She still ate her meals today, has not had any vomiting. No BM today. She was given tramadol x 2 doses as there was some thought that perhaps she i nauseated more than usual from tramadol withdrawal. SHe typically takes tramadl several times a day as per pt and she has only had it once dialy for the last 3 days here. Has only a mild dry cough. Remains off supplemental O2. Review of Systems Review of Systems: All systems reviewed & are unremarkable except as noted in HPI & below Physical Exam Constitutional: WD/WN, vitals as above Respiratory: normal respiratory effort, lungs clear to auscultation Cardiovascular: RRR, no murmur, no edema Gastrointestinal (Abdomen): normal bowel sounds, soft, nontender, no hepatosplenomegaly Skin: no rashes Psychiatric: Orientation: alert, oriented x 3 and cooperative Affect: + anxious affect Results & Data Results & Data ([facility]) Vital Signs (Past 12 Hours) Vital Signs Temp Pulse Resp BP Pulse Ox O2 Del Method 07/22/22 15:20 36.8 C 67 18 125/64 93 Room Air 07/22/22 08:15 Room Air 07/22/22 07:07 36.7 C 63 16 152/89 H 96 Room Air PG Care Time/CCT Total # of Minutes Spent Total Time Spent with Patient: Total time spent is greater than 50% in coordination of care (as documented) at patient's floor/unit and/or counseling patient: Coding Level of Care Code 24934 SUB INP/OBS CARE 2/35MIN Diagnoses COVID-19 U07.1 Pneumonia J18.9 Anemia D64.9 Nausea R11.0 Atrial fibrillation I48.91 Fibromyalgia M79.7
[2022-07-22] MEDS: ZOLPIDEM TARTRATE 5 MG TAB PO PRN (21:24)
[2022-07-22] MEDS: fentaNYL 25 MCG/HR TDSY TD SCH (21:26)
[2022-07-22] MEDS ORDERED: traMADol HCL 50 MG TABLET PO PRN (22:15)
[2022-07-23] MEDS: ENOXAPARIN INJ 40 MG/0.4 ML SYR SQ SCH (08:54)
[2022-07-23] MEDS: PROCHLORPERAZINE MALEATE 5 MG TAB PO PRN ×2 (08:54→12:53)
[2022-07-23] MEDS: CEFDINIR 300 MG CAP PO SCH (08:54)
[2022-07-23] MEDS: lisinopril 20 MG TAB PO SCH (08:55)
[2022-07-23] MEDS: dilTIAZem HCL 120 MG CAPCR PO SCH (08:55)
[2022-07-23] MEDS: CHECK fentaNYL PATCH PLACEMENT SCH (08:56)
--- NOTE | 2022-07-23 11:18 | Discharge Summary ---
Date of Service July 23, 2022 Principal Diagnosis COVID-19, Pneumonia, Hypoxia Discharge Data Allergies Allergy/AdvReac Type Severity Reaction Status Date / Time No Known Allergies Allergy Verified 11/01/21 10:41 Consultations 07/18/22 21:44 ED Decision to Admit Stat Hospital Course (1) COVID-19: COVID-19: Plan: 86-year-old female presenting with COVID-19 infection, hypoxic on arrival at 89% on room air. Patient with no pre-existing lung conditions, does not use sup plemental oxygen at home. She is a former smoker however, quit many years ago. Just not have COPD or asthma that she knows of. Patient is unvaccinated against COVID. Patient refuses treatment with dexamethasone at this time due to known side effects with steroids in the past remdesivir not indicated due to being outside window of treatment for time course CXR with nodular opacities which could be PNA but nodule on left present in [address] scan CRP elevated at 6.2 now weaned off supplemental oxygen and POx great on room air, cough and sputum production much improved, lungs sound clearer SPutum cx heavy normal miguel Maintain isolation precautions Lovenox for DVT prophylaxis -received Cefepime x 4 days and now convert to cefdinir 300mg po bid to finish out 7 day course -continue flutter valve and continue ICS (2) Pneumonia: Plan: as above recommend repeat Chest CT in 6 weeks to ensure nodules are resolving discussed this with patient and daughter (3) Anemia: Plan: chronic, hgb 9-10 Iron deficient on Fe studies with transferrin sat of 10% B12, folate, TSH normal Is a vegetarian, no longer takes Fe supplements as they cause her nausea Has been told she is anemic her entire life -she is hesitant to receive IV iron due to side effects she tends to have with all medications -recommend outpt GI workup as she has not had one (4) Nausea: Plan: Ongoing for the last 1-2 weeks since COVID symptoms started although she is chronically on compazine at home No heartburn, weight loss, early satiety, etc. Likely 2/2 COVID and also pt blames her IBS for this declines trial of H2 dave or PPI but is willing to try bicarbonate as she has taken this at home continue po compazine with meals -continue IV ZOfran and will give po Zofran for discharge -ensure bowels moving -ensure receiving tramadol as pain and tramadol withdrawal may be contributing to her increased nausea (5) Atrial fibrillation: Plan: Rate controlled. Examines in sinus rhythm, No anticoagulation Continue diltiazem Monitor (6) Fibromyalgia: Plan: Chronic. Stable. Continue tramadol prn but increase to qid prn like she takes at home Continue home fentanyl patches Plan DVT proph-Lovenox SQ Dispo-continued stay due to nausea but plan to dc to home tomorrow Discussed care with daughter on phone on 07/19 and again on 07/21 and twice on 07/22 (2) Pneumonia: (3) Anemia: (4) Nausea: (5) Atrial fibrillation: (6) Fibromyalgia: Discharge Plan Discharge Items Patient Disposition: Home - Self-Care Reason For Visit: COVID-19, HYPOXIA Discharge Diagnosis: COVID-19, Hypoxia, Pneumonia Nausea Condition on Discharge: Fair Activity: Resume your previous activity Non-emergency contact: Primary Care Provider Call non-emergency contact if: you have any medication questions, your symptoms worsen and you have a fever Follow-up/Referrals: Eden Proctor MD [Primary Care Provider] - 07/28/22 10:30 am (APPOINTMENT WITH [facility]) Diet: Regular Addtl Attending Provider Instructions: You can finish out 3 more days of the oral antibiotic for your pneumonia. You can continue to take the compazine and/or the ondansetron as needed for nausea after you go home. You are no longer requiring extra oxygen and do not need to wear any supplemental oxygen at home. You should follow up with your PCP within 1 week as scheduled for you. Your PCP can order you a chest xray to ensure your pneumonia has completely resolved in about 4 weeks. You were found to have iron deficiency anemia while here. Please follow up with your PCP regarding this for further workup of the cause. Pending Studies at Discharge: Yes Studies:: Final blood and sputum cultures-no growth to date Stand-Alone Forms: My [employer], Smoking Cessation Medications and DC Order Prescriptions: New cefdinir 300 mg Capsule 300 mg PO BID Qty: 5 0RF ondansetron 4 mg tablet,disintegrating 4 mg PO Q8H PRN (Reason: nausea and vomiting) Qty: 14 0RF Continued tramadol 50 mg tablet See Rx Instructions PO BID PRN (Reason: Pain) Qty: 90 0RF Rx Instructions: 1 to 2 tabs PO twice a day As needed. PDMP searched, last filled on 03/24/2020 for 23 day supply, okay to fill prochlorperazine maleate 5 mg tablet 5 mg PO QID PRN (Reason: nausea and vomiting) Qty: 30 2RF fentanyl 25 mcg/hr patch 72 hour 1 patch transdermal Q72H 30 Days Qty: 10 0RF Rx Instructions: PDMP searched, last filled on 05/19/22 for 30 days, okay to fill cholecalciferol (vitamin D3) 50 mcg (2,000 unit) capsule 50 mcg PO DAILY diltiazem HCl 120 mg capsule,extended release 24hr 120 mg PO DAILY Qty: 90 1RF lisinopril 20 mg tablet 20 mg PO DAILY Qty: 90 1RF acetaminophen [Tylenol Extra Strength] 500 mg tablet 500 mg PO Q6H PRN (Reason: fever) Qty: 30 0RF simethicone [Gas Relief (simethicone)] 125 mg capsule 125 mg PO DAILY PRN (Reason: abdominal distention) Qty: 30 0RF Pepto-Bismol 262 mg tablet 2 tab PO Q1H PRN (Reason: diarrhea) Qty: 30 0RF Rx Instructions: do not exceed 16 tabs per 24 hrs loperamide [Imodium A-D] 2 mg tablet 2 mg PO Q6H PRN (Reason: loose stool) Qty: 30 0RF mecobalamin (vitamin B12) 1,000 mcg tablet,chewable 1,000 mcg PO DAILY Qty: 30 0RF PreserVision AREDS [id number] Tablet 1 tab PO DAILY Women's 50 Plus Multivitamin 400 mcg-500 mg calcium-20 mcg Tablet 1 tab PO DAILY hyoscyamine sulfate 0.125 mg Tablet 0.125 mg PO QID PRN (Reason: Abdominal Pain) zolpidem 5 mg tablet 5 - 7.5 mg PO HS PRN (Reason: Sleep) Rx Instructions: 1 to 1.5 tabs PO at bedtime as needed for sleep Systane Balance 0.6 % drops 1 drp ophthalmic (eye) DAILY Discontinued acetaminophen [Tylenol 8 Hour] 650 mg tablet extended release 650 mg PO Q8H PRN (Reason: pain) Qty: 30 0RF Discharge Orders: Discharge Order (Routine); Ordered 07/23/22 Ordered By: Dione Adams Admission Data Admit Date/Time: 07/18/22 22:56 Attending Provider: Dione Adams Admit Provider: Amy Villafana Primary Care Provider: Eden Proctor Other Providers: Amy Villafana Coding Diagnoses COVID-19 U07.1 Pneumonia J18.9 Anemia D64.9 Nausea R11.0 Atrial fibrillation I48.91 Fibromyalgia M79.7
== END 2022-07-23 14:14 | disposition home or self-care (01) | DRG 177 ==
LOC: ED 18:49 → SUATTDRO 22:56 → 3E 22:56